=== PATIENT | male | born 1940 | race Caucasian/White ===

== ENCOUNTER 2019-10-28 21:06 | Inpatient (IN) | payer BC, OTHER ==
--- NOTE | 2019-10-28 21:16 | PDOC ---
History of Present Illness - General Stated Complaint: WEAKNESS Time Seen by Provider: 10/28/19 21:15 tPA Exclusion checklist 3-4.5h - Time Elapsed Date last known well: 10/27/19 Time last known well: 22:00 Elaspsed time: 1 Day(s) and 5 Hour(s) and 18 Minutes - Thrombolytic Therapy Candidate Is patient eligible for thrombolytic therapy: No - Ineligibility reason(s) Reasons No tPA given: Outside of window - delayed arrival NIH Stroke Scale - Last Known Well Date/Time & Onset Date Last Known Well: 10/27/19 Time Last Known Well: 22:00 - Initial Evaluation Level of consciousness: Alert Ask patient the month and their age: Answers both correctly Ask patient to open & close eyes; make fist and let go: Obeys both correctly Best gaze (horizontal eye movement): Normal Visual field testing: No visual field loss Facial paresis (Show teeth/raise eyebrows/close eyes tight): Normal symmetrical movement Motor Function: Left Arm: Normal Motor Function: Right Arm: Normal (extends arm 90 (or 45) degrees for 10 seconds without drift Motor Function: Left Leg: Some effort against gravity Motor Function: Right Leg: Some effort against gravity Limb Ataxia: Present in two limbs (Unable to lift either leg to perform) Sensory(Use pinprick test arms,legs,trunk,face/side to side): Normal Best language (Describe picture, name items, read sentences): Mild to moderate aphasia (Some word finding difficulty) Dysarthria (read several words): Normal articulation Extinction and Inattention: No abnormality - Total Score NIH Stroke Scale Score: 7 Past History - Past Medical History Allergies/Adverse Reactions: Allergies Allergy/AdvReac Type Severity Reaction Status Date / Time No Known Allergies Allergy Verified 10/28/19 22:27 Home Medications: Ambulatory Orders Aspirin Coated [Ecotrin -] 81 mg PO DAILY 07/28/12 Atorvastatin Ca [Lipitor] 40 mg PO HS 07/28/12 Carvedilol Phosphate [Coreg Cr -] 40 mg PO DAILY 07/28/12 Cholecalciferol (Vitamin D3) [Vitamin D] 1,000 unit PO DAILY 07/28/12 Docosahexanoic Acid/Epa [Fish Oil Softgel] 1 each PO DAILY 07/28/12 Hydrochlorothiazide [Hctz] 12.5 mg PO DAILY 07/28/12 Losartan Potassium 50 mg PO DAILY 07/28/12 Multivit-Min/FA/Lycopene/Lut [Centrum Silver Tablet] 1 each PO DAILY 07/28/12 Sitagliptin Phosphate [Januvia -] 100 mg PO DAILY@0700 07/28/12 metFORMIN XR [Glucophage Xr -] 500 mg PO BID 07/28/12 Albuterol 0.083% Nebulizer Jena [Ventolin 0.083% Nebulizer Soln -] 1 neb NEB QIDR #0 vial 07/30/12 Guaifenesin [Robitussin] 10 ml PO TID PRN #0 cup 07/30/12 Insulin (Novolog) [Novolog Flexpen -] 0 units SQ ACHS #0 pen 07/30/12 Ranolazine [Ranexa -] 500 mg PO BID #0 tab 07/30/12 Anemia: No Asthma: No Cancer: No Cardiac Disorders: Yes (1993, pad) CVA: No COPD: No Dementia: No Diabetes: Yes GI Disorders: No Disorders: No HTN: Yes Hypercholesterolemia: Yes Liver Disease: No Seizures: No Thyroid Disease: No - Surgical History Abdominal Surgery: No Appendectomy: No Cardiac Surgery: No Cholecystectomy: No Lung Surgery: No Neurologic Surgery: No Orthopedic Surgery: Yes (reattached L thumb) - Psycho Social/Smoking Cessation Hx Smoking Status: No Smoking History: Current every day smoker Have you smoked in the past 12 months: Yes Number of Cigarettes Smoked Daily: 22 'Breaking Loose' booklet given: 07/29/12 Hx Alcohol Use: No Drug/Substance Use Hx: No Substance Use Type: None Hx Substance Use Treatment: No ED Treatment Course - LABORATORY CBC & Chemistry Diagram: 10/28/19 22:14 10/28/19 22:14 Medical Decision Making - Medical Decision Making 10/28/19 22:11 HPI: 78yo M hx IDDM, HTN, CAD (1993, no stents), HLD, hx smoking (120 pack-year, quit 3mo ago), and b/l leg weakness (x1yr, unknown cause, walks with walker) BIBA from home for b/l leg weakness, word finding difficulty, and amnesia to day , with associated urinary incontinence, LKN 2200 10/27/19 when went to bed, noticed abnormal when called at 1800 today. Pt was in [facility], remembers going to bed at 2200 ( confirms bed time and confirms baseline at time), then does not remember today. went to work before pt woke up. Called pt at 1800 and pt said could not drive to pick her up because "felt stuffy", was hard to understand. went home and found pt sitting in chair having urinated on self, confused, and unable to identify objects like "armrest". did not call ambulance until later because pt refused. EMS arrived at 2030 and pt was still in chair unable to stand 2/2 leg weakness, but pt's speech had improved. Pt does have b/l LE weakness at baseline x1yr which is being evaluated and thinks was told might be due to peripheral vascular disease, but is still being worked up. Pt baseline is able to walk with walker, today's weakness is a significant change. No hx of dementia or word finding difficulty or amnesia. Took baby aspirin and daily dose Lipitor at unknown time today. Denies hx seizures, seizure-like activity, tongue-biting, fall, trauma, back pain, neck pain, urinary retention, bowel incontinence, saddle anesthesia, IVDU, fever, chills, fatigue, headache, dizziness, numbness/tingling, vision changes, shortness of breath, cough, chest pain, palpitations, leg swelling, abdominal pain, blood in stool, diarrhea, constipation, nausea, vomiting, dysuria, hematuria, rash. ROS: Constitutional: Negative for chills, fever, fatigue, diaphoresis. HENT: Negative for sore throat, rhinorrhea, congestion. Eyes: Negative for visual disturbance. Respiratory: Negative for shortness of breath, cough, and wheezing. Cardiovascular: Negative for chest pain, palpitations, and leg swelling. Gastrointestinal: Negative for abdominal pain, blood in stool, constipation, diarrhea, nausea, and vomiting. Genitourinary: Negative for dysuria, flank pain, and hematuria. Musculoskeletal: Negative for myalgias, back pain, and neck pain. Skin: Negative for rash. Neurological: Positive for word finding difficulty and b/l leg weakness. Negative for light-headedness, dizziness, vertigo, syncope, numbness and headaches. Psychiatric/Behavioral: Negative for behavioral problems and confusion. PE: Gen: Alert, NAD, comfortable-appearing. HEENT: PERRL, EOMI, MMM, NCAT. No conjunctival pallor. Sclera are non-icteric. Oropharynx is clear. CV: Regular rate and rhythm. No murmurs, rubs, or gallops. PULM: No resp distress. CTAB, no wheezes, rales, or rhonchi. ABD: soft, NT/ND, no rebound tenderness or guarding, no CVA tenderness. BACK: No TTP of midline c/t/l-spine. No rashes. No step-offs or deformities. MSK: No bony deformities. 2+ pulses in all extremities. NEURO: AAOx3. PERRL. Word finding difficulty. No dysarthria. CN 2-12 intact. Sensation to light touch intact in all extremities. 5/5 strength in UEs throughout. BLEs: 5/5 strength dorsiflexion/plantarflexion and knee flexion/extension. 2.5/ 5 strength hip flexion. Able to lift both legs approx 1cm off bed and falls down within 3 seconds. EXTREMITIES: No cyanosis. No clubbing. No edema. No calf tenderness. PSYCH: Normal mood and thought pattern. SKIN: Warm and dry. Normal capillary refill. No rashes. No jaundice. MDM: 78yo M hx IDDM, HTN, CAD (CA 1993, no stents), HLD, hx smoking (120 pack-year, quit 3mo ago), and b/l leg weakness (x1yr, unknown cause, walks with walker) BIBA from home for 1 day b/l leg weakness, word finding difficulty, and amnesia to day, with associated urinary incontinence, LKN 2200 10/27/19 when went to bed , noticed abnormal when called at 1800 today. Took baby aspirin and daily dose Lipitor at unknown time today. Hemodynamically stable, bradycardic to 50s ( states sometimes happens after takes meds), afebrile, 2.5/5 strength hip flexion , word finding difficulty. NIHSS 7 (b/l leg weakness, word finding difficulty), no TPA due to outside window, LKN 2200 10/27/19 Ddx: stroke, ICH, cord compression, spinal abscess, cauda equina, seizure, rosario' s paralysis, infection, metabolic derangement, anemia -CTH: no acute pathology -EKG: sinus rhythm with PACs, 82bpm, RBBB, L anterior fascicular block, no e/o acute ischemia, no significant changes 07/28/12 -CBC,CMP,Coags,Cardiac profile,CHL,HDL,LDL,TGs,T&S,UA -Neuro consult: Spoke with Dr Her - discussed case; recommended CT w/o contrast T4-S1, full aspirin, admit stroke unit. Requested call back if CT abnormal -CT w/o contrast thoracic and lumbar -per pt's , pt cannot get MRI -aspirin -no statin needed since took his daily Lipitor today -IVF -Dispo: likely adm stroke unit pending w/u 10/28/19 23:20 Rectal exam performed: rectal tone present, no saddle anesthesia Rectal temp 102.1 -lact,VBG,BCx2,flu,UC,CXR -IVF,Tylenol 10/28/19 23:37 Labs reviewed. CXR reviewed: no acute pathology 10/29/19 01:46 CT read: IMPRESSION: Chronic advanced intervertebral osteochondrosis is noted from the T6 -7 down through the T11-12 levels, and at the L2-3 through the L4-5 levels, as described above. Prominent disc osteophyte complexes at T6-7, T7-8 and T8-9, which are producing moderate central spinal canal stenoses, and posterior displacement of the thecal sac, but without clear evidence of spinal cord compression. Smaller disc osteophyte complexes are noted at T11-12 and L3-4 producing mild central spinal canal stenoses. 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 -Dr Her paged. 10/29/19 01:[address] Her - no further recs, will follow. 10/29/19 02:03 Labs reviewed. Pt reassessed: strength improved in BLEs, word finding difficulty still present , pt appears a little more confused BLEs: 5/5 strength dorsiflexion/plantarflexion and knee flexion/extension. 4+/5 strength hip flexion. Able to lift both legs fully off bed and maintain for 5 seconds. Microblog sent for admission for BLE weakness, word finding difficulty, urinary incontinence, amnesia x1 day; CVA/TIA vs seizure? 10/29/19 03:18 UA reviewed - no e/o infection. Pt signed out to admitting team. Discharge - Discharge Information Problems reviewed: Yes Clinical Impression/Diagnosis: Bilateral leg weakness, Word finding difficulty Condition: Stable - Admission Yes - Follow up/Referral Referrals: Alejandro Segal MD [Primary Care Provider] - - Patient Discharge Instructions - Post Discharge Activity
--- NOTE | 2019-10-28 21:22 | PDOC ---
Documentation entered by Cali Ludwig SCRIBE, acting as scribe for Nancy Grove MD. Nancy Grove MD: This documentation has been prepared by the Oziel syed Daniel, SCRIBE, under my direction and personally reviewed by me in its entirety. I confirm that the documentation accurately reflects all work, treatment, procedures, and medical decision making performed by me. Attending Attestation - Resident Resident Name: Maite Feng - ED Attending Attestation I have performed the following: I have examined & evaluated the patient, The case was reviewed & discussed with the resident, I agree w/resident's findings & plan, Exceptions are as noted - HPI HPI: 10/28/19 21:49 The patient is a 78 year old male with a past medical history of [place] (1993), diabetes, HTN, and HLD here today for evaluation of altered mental status. As per the patients , the patient is normally ANOx3 and meets her at the train station but today did not. She states that she found him at home unable to get out of his chair. She states that the patient has chronic lower extremity weakness but is able to ambulate with a cane. Patient does not remember the incident. Allergies: NKA - Physicial Exam PE: 10/28/19 22:02 78-year-old male brought in by ambulance from home for acute weakness HPI the says normally his he walks with a cane and often will greet her at the train station however today when she got home at 6 he was seated and could not get up. He said he could not remember part of the day and felt that he had been weak and unable to get up from the chair for hours. 10/28/19 22:12 78-year-old male brought in by ambulance for bilateral weakness that occurred this afternoon Head normocephalic atraumatic Eyes pupils are reactive equal reactive to light and accommodation extraocular muscles are intact Neck is supple Lungs are clear to auscultation CVS is regular rate and rhythm S1-S2 Abdomen is nontender Skin is dry Extremities patient can raise the right leg off the gurney but cannot withstand any pressure on the leg and he has great difficulty in raising the left leg off the gurney at all, Neuro he has complaint of some word searching but has no facial droop or slurred speech at this time he is alert and oriented x3, no visual complaints 10/29/19 02:05 - Medical Decision Making 10/28/19 22:14 The patient symptoms occurred sometime between noon and 6 PM and is outside the window of TPA and also his symptoms are so minor at this time Case discussed with Dr. Ester Her the patient will be given aspirin plan ADMIT to the stroke unit Impression CVA/TIA 10/28/19 22:15 CAT scan of the head was negative for any acute intracranial pathology, no skull fracture no bleed and no infarct appreciated EKG is normal sinus rhythm at 82 bpm with premature atrial complexes, bifascicular block 10/29/19 02:05 cbc is wnl cxr no infiltrates appreciated rectal temp was 102, blood cultures,urine to be sent pt has normal rectal tone On exam of his spine he has no focal vertebral tenderness or erythema ct scan of lumbar spine is negative for abscess
[2019-10-28] MEDS ORDERED: ASPIRIN 325 MG TABLET PO ONE (22:15)
[2019-10-28] MEDS ORDERED: ASPIRIN 325 MG ENTERIC COATED TABLET (FP) ONE (22:29)
[2019-10-28 22:30] LABS: BASO % 0.4 % (0-2.0); EOS % 2.2 % (0-4.5); HEMATOCRIT 38.7 % (35.4-49); HEMOGLOBIN 12.9 GM/dL (11.7-16.9); LYMPH % 8.5 % (8-40); MCHC 33.5 g/dl (32.0-35.9); MEAN CELL VOLUME 95.6 fl (80-96); MEAN PLT VOLUME 8.6 fl (7.5-11.1); NEUT % 72.9 % (42.8-82.8); PLATELET COUNT 177 K/MM3 (134-434); RBC 4.04 M/mm3 (4.00-5.60); RDW 14.1 % (11.9-15.9); WHITE BLOOD COUNT 4.8 K/mm3 (4.0-10.0)
[2019-10-28] MEDS: SODIUM CHLORIDE 1,000 ML IV SCH (22:37)
[2019-10-28 23:00] LABS: BILIRUBIN,TOTAL 0.4 mg/dL (0.2-1); BLOOD UREA NITROGEN 21.8 mg/dL (7-18); CALCIUM 9.8 mg/dL (8.5-10.1); CREATININE 1.4 mg/dL (0.55-1.3); TOT PROT 7.3 g/dl (6.4-8.2)
[2019-10-28 23:11] LABS: INR 1.02 (0.83-1.09)
[2019-10-28 23:13] LABS: ACTIVATED PTT 32.7 SECONDS (25.2-36.5)
[2019-10-28] MEDS ORDERED: ACETAMINOPHEN 500 MG TABLET (FP) PO ONE (23:14)
[2019-10-28] MEDS ORDERED: VANCOMYCIN 1 GM in D5W (PRE-DOCKED) 1,000 MG/250 ML IVPB ONE (23:16)
[2019-10-28] MEDS ORDERED: CEFTRIAXONE 2 GM-D5W BAG 2 GM/50 ML BAG IVPB ONE (23:16)
[2019-10-29 00:18] LABS: VENOUS PH 7.43 (7.31-7.41)
[2019-10-29 00:25] LABS: VENOUS PO2 < 49 mmHg (28-48)
[2019-10-29] MEDS ORDERED: ACETAMINOPHEN 325 MG TABLET (FP) ONE (00:36)
[2019-10-29] MEDS ORDERED: VANCOMYCIN 500 MG VIAL (RESTRICTED TO ID ONLY) ONE (00:37)
[2019-10-29] MEDS ORDERED: CEFTRIAXONE 2 GM/100 ML BAG IVPB ONE ×2 (00:37→09:54)
--- NOTE | 2019-10-29 03:03 | PN ---
Teaching Attending Note Name of Resident: Victorina Balderas ATTENDING PHYSICIAN STATEMENT I saw and evaluated the patient. I reviewed the resident's note and discussed the case with the resident. I agree with the resident's findings and plan as documented. SUBJECTIVE: Patient is a 78 year old man with a PMH of [place] (1993), Bilateral caroid endarterectomy, Tobacco use, NIDDM, HTN, and HLD here today for evaluation of altered mental status. As per the patients , the patient is normally alert and oriented x3, and meets her at the train station but today did not. She states that she found him at home unable to get out of his chair. She states that the patient has chronic lower extremity weakness but is able to ambulate with a cane. Patient does not remember the incident. No history of seizures. Denies fall, trauma, back pain, neck pain, urinary retention, bowel incontinence , saddle anesthesia, IVDU, fever, chills, fatigue, headache, dizziness, numbness /tingling, vision changes, shortness of breath, cough, chest pain, palpitations , leg swelling, abdominal pain, blood in stool, diarrhea, constipation, nausea, vomiting, dysuria or hematuria. No recent sick contacts. Denies alcohol or illicit drug use. OBJECTIVE: Alert Vital Signs Period Temp Pulse Resp BP Sys/Bailey Pulse Ox Last 24 Hr 97.8 F-102.1 F 44 18 116/67 96 HEENT: No Jaundice, eye redness or discharge, PERRLA, EOMI. Normocephalic, atraumatic. External ears are normal and hearing is grossly intact. No nasal discharge. Neck: Supple, nontender. No palpable adenopathy or thyromegaly. No JVD Chest: Good effort. Clear to auscultation and percussion. Heart: Regular. No S3, rub or murmur Abdomen: Not distended, soft, nontender and no HSM. No rebound or guarding. Normal bowel sounds. Ext: Peripheral pulses intact. No leg edema. Skin: Warm and dry. No petechiae, rash or ecchymosis. Neuro: Alert. Oriented x3. CN 2-12 grossly intact. Sensation grossly intact in all four extremities; lower extremity paresis. Psych: Appropriate mood and affect. Good insight. Current Medications Generic Name Dose Route Start Last Admin Trade Name Freq PRN Reason Stop Dose Admin Sodium Chloride 1,000 mls @ 42 mls/hr 10/28/19 21:45 10/28/19 22:37 Normal Saline - IV 42 mls/hr ASDIR SÁNCHEZ Administration Home Medications Medication Instructions Recorded Aspirin Coated [Ecotrin -] 81 mg PO DAILY 07/28/12 Atorvastatin Ca [Lipitor] 40 mg PO HS 07/28/12 Carvedilol Phosphate [Coreg Cr -] 40 mg PO DAILY 07/28/12 Cholecalciferol (Vitamin D3) 1,000 unit PO DAILY 07/28/12 [Vitamin D] Docosahexanoic Acid/Epa [Fish Oil 1 each PO DAILY 07/28/12 Softgel] Hydrochlorothiazide [Hctz] 12.5 mg PO DAILY 07/28/12 Losartan Potassium 50 mg PO DAILY 07/28/12 Multivit-Min/FA/Lycopene/Lut 1 each PO DAILY 07/28/12 [Centrum Silver Tablet] Sitagliptin Phosphate [Januvia -] 100 mg PO DAILY@0700 07/28/12 metFORMIN XR [Glucophage Xr -] 500 mg PO BID 07/28/12 Albuterol 0.083% Nebulizer Jena 1 neb NEB QIDR #0 vial 07/30/12 [Ventolin 0.083% Nebulizer Soln -] Guaifenesin [Robitussin] 10 ml PO TID PRN #0 cup 07/30/12 Insulin (Novolog) [Novolog Flexpen 0 units SQ ACHS #0 pen 07/30/12 -] Ranolazine [Ranexa -] 500 mg PO BID #0 tab 07/30/12 Abnormal Lab Results 10/28/19 10/28/19 10/28/19 22:14 22:14 23:44 Monocytes % 16.0 H D VBG pH 7.43 H POC VBG pO2 < 49 H Anion Gap 5 L BUN 21.8 H Creatinine 1.4 H Random Glucose 151 H Triglycerides 175 H ASSESSMENT AND PLAN: 1. TIA? - No acute intracranial pathology on head CT, but has evidence of sinusitis. Official report of thoracic and lumbar spine CT pending - but preliminary reading revealed possible aortic aneurysm. Will get a sonogram for further evaluation of the anerysm. NIHSS score in the ER was 7, but patient is outside the window for tPA. Will do speech and swallow evaluation, ECHO and continue statin and ASA. His symptoms improved in the ER but with a fever of >102 and no other obvious source of infection, will get a lumbar puncture and treat empirically for meningitis with vancomycin, rocephin, ampicillin and acyclovir. Get EEG, brain MRI and lumbosacral MRI. Consult ID, PT and neurology. CXR shows cardiomegaly, hilar prominence but no acute infiltrates. Flu swab is negative. Urinalysis and urine toxicology pending. EKG shows NSR with premature atrial complexes, RBBB and LAFB. Will continue comprehensive care for all of patients comorbid conditions. 2. Uncontrolled DM For now, we will hold the home diabetes drugs and implement sliding scale insulin regimen. Provide comprehensive diabetes care with patient teaching and counseling about the importance of adherence to prescribed diabetes regimen, euglycemia, eye care and foot care. 3. Tobacco Use Counseled on risks associated with tobacco use. We will provide patient all the necessary assistance to facilitate smoking cessation and prescribe Nicotine patch. 4. NILAY - Cause unclear. Will get kidney sonogram, hydrate gently and monitor urine output. Consult nephrology and avoid nephrotoxic agents such as NSAIDS, aminoglycosides, contrast dyes and certain Alternative medicine products. 5. Hypertension - Restart suitable outpatient antihypertensive drugs when clinically appropriate. Revise regimen to ensure [id number] excellent BP control and aids counselor patient on the injurious effects of uncontrolled hypertension. Nonpharmacologic measures to control hypertension like weight loss , salt restriction and exercise discussed. Importance of adherence to treatment regimen and attainment of normotension emphasized. 6. DVT prophylaxis - Lovenox 40 mg SQ q 24 hours. 7. Advance directives - Full code
[2019-10-29 03:13] LABS: PH,URINE 5.5 (5.0-8.0); URINE APPEARANCE CLEAR; URINE BILIRUBIN NEGATIVE (NEGATIVE); URINE COLOR YELLOW; URINE GLUCOSE (UA) NEGATIVE (NEGATIVE); URINE KETONE TRACE (NEGATIVE); URINE LEUK ESTERASE NEGATIVE (NEGATIVE); URINE NITRITE NEGATIVE (NEGATIVE); URINE PROTEIN 2+ (NEGATIVE); URINE RBC 7 /hpf (0-4); URINE UROBILINOGEN 0.2 mg/dL (0.2-1.0)
[2019-10-29 03:14] LABS: EPI CELLS 0.5 /HPF (0-5/HPF); HYALINE CASTS 2 /lpf (0-8); URINE BACTERIA 0.8 /hpf (NEGATIVE); URINE WBC 1 /hpf (0-5)
--- NOTE | 2019-10-29 03:56 | HP ---
CHIEF COMPLAINT: B/L leg weakness and amnesia PCP: Dr Segal (Felipe) HISTORY OF PRESENT ILLNESS: Though patient is AAOx3 he is amnesic of today incident. According to ED record from : 78yo M hx IDDM, HTN, CAD (SD 1993, no stents), HLD, hx smoking (120 pack-year, quit 3mo ago), and b/l leg weakness (x1yr, unknown cause, walks with walker) BIBA from home for b/l leg weakness, word finding difficulty, and amnesia to day , with associated urinary incontinence, LKN 2200 10/27/19 when went to bed, noticed abnormal when called at 1800 today. Pt was in [facility] [place], remembers going to bed at 2200 ( confirms bed time and confirms baseline at time), then does not remember today. went to work before pt woke up. Called pt at 1800 and pt said could not drive to pick her up because "felt stuffy", was hard to understand. went home and found pt sitting in chair having urinated on self, confused, and unable to identify objects like "armrest". did not call ambulance until later because pt refused. EMS arrived at 2030 and pt was still in chair unable to stand 2/2 leg weakness, but pt's speech had improved. Pt does have b/l LE weakness at baseline x1yr which is being evaluated and thinks was told might be due to peripheral vascular disease, but is still being worked up. Pt baseline is able to walk with walker, today's weakness is a significant change. No hx of dementia or word finding difficulty or amnesia. Took baby aspirin and daily dose Lipitor at unknown time today. During our admission interview: Patient states he has had chronic bilateral lower extremity weakness for the past year; he states he usually feels discomfort and weak after walking block and the discomfort is relieved with rest. He also reports associated numbness and weakness intermittently in the bilateral lower extremities. 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 Denies hx seizures, seizure-like activity, tongue-biting, fall, trauma, back pain, neck pain, urinary retention, bowel incontinence, saddle anesthesia, IVDU , fever, chills, fatigue, headache, dizziness, numbness/tingling, vision changes , shortness of breath, cough, chest pain, palpitations, leg swelling, abdominal pain, blood in stool, diarrhea, constipation, nausea, vomiting, dysuria, hematuria, rash. ER course was notable for: (1) VS with fever 102.1 CBC unremarkable, CMP with Cr 1.4, lipids elevated 175. UA negative, flu negative (2) head CT no acute pathology, thoracic and lumbar Chronic advanced intervertebral osteochondrosis is noted from the T6-7 down through the T11-12 levels, and at the L2-3 through the L4-5 levels, as described above. Prominent disc osteophyte complexes at T6-7, T7-8 and T8-9, which are producing moderate central spinal canal stenoses, and posterior displacement of the thecal sac, but without clear evidence of spinal cord compression. Smaller disc osteophyte complexes are noted at T11-12 and L3-4 producing mild central spinal canal stenoses. 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 (3) ASA 325, NS, vanco and rocephin, tylenol Recent Travel: none PAST MEDICAL HISTORY: as above PAST SURGICAL HISTORY: B/l CEA in 2018 Social History: Smoking: heavy former smoker Alcohol: one drink a night "rye or cassie" Drugs: denies Allergies No Known Allergies Allergy (Verified 10/28/19 22:27) HOME MEDICATIONS: Home Medications Medication Instructions Recorded Aspirin Coated [Ecotrin -] 81 mg PO DAILY 07/28/12 Atorvastatin Ca [Lipitor] 40 mg PO HS 07/28/12 Carvedilol Phosphate [Coreg Cr -] 40 mg PO DAILY 07/28/12 Cholecalciferol (Vitamin D3) 1,000 unit PO DAILY 07/28/12 [Vitamin D] Docosahexanoic Acid/Epa [Fish Oil 1 each PO DAILY 07/28/12 Softgel] Hydrochlorothiazide [Hctz] 12.5 mg PO DAILY 07/28/12 Losartan Potassium 50 mg PO DAILY 07/28/12 Multivit-Min/FA/Lycopene/Lut 1 each PO DAILY 07/28/12 [Centrum Silver Tablet] Sitagliptin Phosphate [Januvia -] 100 mg PO DAILY@0700 07/28/12 metFORMIN XR [Glucophage Xr -] 500 mg PO BID 07/28/12 Albuterol 0.083% Nebulizer Jena 1 neb NEB QIDR #0 vial 07/30/12 [Ventolin 0.083% Nebulizer Soln -] Guaifenesin [Robitussin] 10 ml PO TID PRN #0 cup 07/30/12 Insulin (Novolog) [Novolog Flexpen 0 units SQ ACHS #0 pen 07/30/12 -] Ranolazine [Ranexa -] 500 mg PO BID #0 tab 07/30/12 REVIEW OF SYSTEMS CONSTITUTIONAL: Absent: fever, chills, diaphoresis, generalized weakness, malaise, loss of appetite, weight change HEENT: Absent: rhinorrhea, nasal congestion, throat pain, throat swelling, difficulty swallowing, mouth swelling, ear pain, eye pain, visual changes CARDIOVASCULAR: Absent: chest pain, syncope, palpitations, irregular heart rate, lightheadedness , peripheral edema RESPIRATORY: Absent: cough, shortness of breath, dyspnea with exertion, orthopnea, wheezing, stridor, hemoptysis GASTROINTESTINAL: Absent: abdominal pain, abdominal distension, nausea, vomiting, diarrhea, constipation, melena, hematochezia GENITOURINARY: Absent: dysuria, frequency, urgency, hesitancy, hematuria, flank pain, genital pain MUSCULOSKELETAL: Absent: myalgia, arthralgia, joint swelling, back pain, neck pain SKIN: Absent: rash, itching, pallor HEMATOLOGIC/IMMUNOLOGIC: Absent: easy bleeding, easy bruising, lymphadenopathy, frequent infections ENDOCRINE: Absent: unexplained weight gain, unexplained weight loss, heat intolerance, cold intolerance NEUROLOGIC: focal weakness,mental status changes, bladder incontinence Absent: headache, or paresthesias, dizziness, unsteady gait, seizure, bowel incontinence PSYCHIATRIC: Absent: anxiety, depression, suicidal or homicidal ideation, hallucinations. PHYSICAL EXAMINATION Vital Signs - 24 hr 10/28/19 10/28/19 22:20 23:12 Temperature 97.8 F 102.1 F H Pulse Rate 44 L Respiratory 18 Rate Blood Pressure 116/67 O2 Sat by Pulse 96 Oximetry (%) Hours after ED presentation GENERAL: Awake, alert, and fully oriented, in no acute distress. HEAD: Normal with no signs of trauma. EYES: Pupils unequal ( R>L), round and reactive to light, extraocular movements intact, sclera anicteric, conjunctiva clear. No lid lag. EARS, NOSE, THROAT: oropharynx clear without exudates. Moist mucous membranes. NECK: Normal range of motion, supple without lymphadenopathy, JVD, or masses. scars from b/l CEA LUNGS: Breath sounds equal, clear to auscultation bilaterally. No wheezes, and no crackles. No accessory muscle use. HEART: Regular rate and rhythm, normal S1 and S2 without murmur, rub or gallop. ABDOMEN: Soft, nontender, not distended, normoactive bowel sounds, no guarding, no rebound, no masses. No hepatomegaly or splenomegaly. MUSCULOSKELETAL: Normal range of motion at all joints. No bony deformities or tenderness. No CVA tenderness. UPPER EXTREMITIES: 2+ pulses, warm, well-perfused. No cyanosis. No clubbing. No peripheral edema. LOWER EXTREMITIES: 2+ pulses, warm, well-perfused. No calf tenderness. No peripheral edema. NEUROLOGICAL: Cranial nerves II-XII intact. Normal speech. Sensation to light touch intact in all extremities. 5/5 strength in UEs throughout. BLEs: 5/5 strength dorsiflexion/plantarflexion and knee flexion/extension. 5/5 strength hip flexion. Able to lift both legs approx 1cm off bed for 5 seconds. PSYCHIATRIC: Cooperative. Good eye contact. Appropriate mood and affect. SKIN: Warm, dry, normal turgor, no rashes or lesions noted, normal capillary refill. Laboratory Results - last 24 hr 10/28/19 10/28/19 10/28/19 02:35 22:14 22:14 WBC RBC Hgb Hct MCV MCH MCHC RDW Plt Count MPV Absolute Neuts (auto) Neutrophils % Lymphocytes % Monocytes % Eosinophils % Basophils % Nucleated RBC % PT with INR 12.00 INR 1.02 PTT (Actin FS) 32.7 VBG pH POC VBG pCO2 POC VBG pO2 VBG HCO3 VBG O2 Sat ([place]) VBG Base Excess Sodium Potassium Chloride Carbon Dioxide Anion Gap BUN Creatinine Est GFR (CKD-EPI)AfAm Est GFR (CKD-EPI)NonAf Random Glucose Lactic Acid Calcium Total Bilirubin AST ALT Alkaline Phosphatase Creatine Kinase 186 Creatine Kinase Index 1.1 CK-MB (CK-2) 2.1 Troponin I < 0.02 Total Protein Albumin Triglycerides Cholesterol Total LDL Cholesterol HDL Cholesterol Urine Color Yellow Urine Appearance Clear Urine pH 5.5 Ur Specific [place] 1.023 Urine Protein 2+ H Urine Glucose (UA) Negative Urine Ketones Trace H Urine Blood Negative Urine Nitrite Negative Urine Bilirubin Negative Urine Urobilinogen 0.2 Ur Leukocyte Esterase Negative Urine WBC (Auto) 1 Urine RBC (Auto) 7 Urine Casts (Auto) 2 U Epithel Cells (Auto) 0.5 Urine Bacteria (Auto) 0.8 Influenza A (Rapid) Influenza B (Rapid) Blood Type Antibody Screen 10/28/19 10/28/19 10/28/19 22:14 22:14 22:14 WBC 4.8 RBC 4.04 Hgb 12.9 Hct 38.7 MCV 95.6 MCH 32.0 MCHC 33.5 RDW 14.1 Plt Count 177 MPV 8.6 Absolute Neuts (auto) 3.5 Neutrophils % 72.9 Lymphocytes % 8.5 Monocytes % 16.0 H D Eosinophils % 2.2 Basophils % 0.4 Nucleated RBC % 0 PT with INR INR PTT (Actin FS) VBG pH POC VBG pCO2 POC VBG pO2 VBG HCO3 VBG O2 Sat ([place]) VBG Base Excess Sodium 136 Potassium 4.0 Chloride 101 Carbon Dioxide 31 Anion Gap 5 L BUN 21.8 H Creatinine 1.4 H Est GFR (CKD-EPI)AfAm 55.77 Est GFR (CKD-EPI)NonAf 48.12 Random Glucose 151 H Lactic Acid Calcium 9.8 Total Bilirubin 0.4 AST 21 ALT 23 Alkaline Phosphatase 86 Creatine Kinase Creatine Kinase Index CK-MB (CK-2) Troponin I Total Protein 7.3 Albumin 4.0 Triglycerides 175 H Cholesterol 167 Total LDL Cholesterol 82 HDL Cholesterol 60 Urine Color Urine Appearance Urine pH Ur Specific [place] Urine Protein Urine Glucose (UA) Urine Ketones Urine Blood Urine Nitrite Urine Bilirubin Urine Urobilinogen Ur Leukocyte Esterase Urine WBC (Auto) Urine RBC (Auto) Urine Casts (Auto) U Epithel Cells (Auto) Urine Bacteria (Auto) Influenza A (Rapid) Influenza B (Rapid) Blood Type O POSITIVE Antibody Screen Negative 10/28/19 10/28/19 10/29/19 23:44 23:44 00:01 WBC RBC Hgb Hct MCV MCH MCHC RDW Plt Count MPV Absolute Neuts (auto) Neutrophils % Lymphocytes % Monocytes % Eosinophils % Basophils % Nucleated RBC % PT with INR INR PTT (Actin FS) VBG pH 7.43 H POC VBG pCO2 39.0 POC VBG pO2 < 49 H VBG HCO3 25.5 VBG O2 Sat ([place]) 78.7 VBG Base Excess 1.7 Sodium Potassium Chloride Carbon Dioxide Anion Gap BUN Creatinine Est GFR (CKD-EPI)AfAm Est GFR (CKD-EPI)NonAf Random Glucose Lactic Acid 1.6 Calcium Total Bilirubin AST ALT Alkaline Phosphatase Creatine Kinase Creatine Kinase Index CK-MB (CK-2) Troponin I < 0.02 Total Protein Albumin Triglycerides Cholesterol Total LDL Cholesterol HDL Cholesterol Urine Color Urine Appearance Urine pH Ur Specific [place] Urine Protein Urine Glucose (UA) Urine Ketones Urine Blood Urine Nitrite Urine Bilirubin Urine Urobilinogen Ur Leukocyte Esterase Urine WBC (Auto) Urine RBC (Auto) Urine Casts (Auto) U Epithel Cells (Auto) Urine Bacteria (Auto) Influenza A (Rapid) Influenza B (Rapid) Blood Type Antibody Screen 10/29/19 00:35 WBC RBC Hgb Hct MCV MCH MCHC RDW Plt Count MPV Absolute Neuts (auto) Neutrophils % Lymphocytes % Monocytes % Eosinophils % Basophils % Nucleated RBC % PT with INR INR PTT (Actin FS) VBG pH POC VBG pCO2 POC VBG pO2 VBG HCO3 VBG O2 Sat ([place]ira) VBG Base Excess Sodium Potassium Chloride Carbon Dioxide Anion Gap BUN Creatinine Est GFR (CKD-EPI)AfAm Est GFR (CKD-EPI)NonAf Random Glucose Lactic Acid Calcium Total Bilirubin AST ALT Alkaline Phosphatase Creatine Kinase Creatine Kinase Index CK-MB (CK-2) Troponin I Total Protein Albumin Triglycerides Cholesterol Total LDL Cholesterol HDL Cholesterol Urine Color Urine Appearance Urine pH Ur Specific [place] Urine Protein Urine Glucose (UA) Urine Ketones Urine Blood Urine Nitrite Urine Bilirubin Urine Urobilinogen Ur Leukocyte Esterase Urine WBC (Auto) Urine RBC (Auto) Urine Casts (Auto) U Epithel Cells (Auto) Urine Bacteria (Auto) Influenza A (Rapid) Negative Influenza B (Rapid) Negative Blood Type Antibody Screen Head CT no acute pathology, thoracic and lumbar Chronic advanced intervertebral osteochondrosis is noted from the T6-7 down through the T11-12 levels, and at the L2-3 through the L4-5 levels, as described above. Prominent disc osteophyte complexes at T6-7, T7-8 and T8-9, which are producing moderate central spinal canal stenoses, and posterior displacement of the thecal sac, but without clear evidence of spinal cord compression. Smaller disc osteophyte complexes are noted at T11-12 and L3-4 producing mild central spinal canal stenoses. 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 ASSESSMENT/PLAN: 78yo M hx IDDM, HTN, CAD (SD 1993, no stents), HLD, hx smoking (120 pack-year, quit 3mo ago), and b/l leg weakness (x1yr, unknown cause, walks with walker) BIBA from home for b/l leg weakness, word finding difficulty, and amnesia to day , with associated urinary incontinence; admitted for CVA/TIA work up vs meningitis. worsening b/l leg weakness associated with amnesia, urine incontinence and word difficulty poss due to TIA/CVA Pt on admission had abnormal neuro with severe weaknes in LE at 2/5 in hip flexion; by my interview complete neuro recovery no saddle anesthesia or bowel incontinence. Urine incontinence resolved. pt developed retention requiring campbell placement B/L CEA last year CT of head, thoracic and lumbar spine finding described above carotid U/S to r/o reocclusion echo ordered Neuro Dr Her on board and will assess patient today NPO speech and swallow eval neurochecks Q2h MRI of lumbar region to r/o sac/cord compression continue statins New onset fever and waxing and waning mental status and Neuro deficit no clear source of infection identified outside of brain Fever of 102.1F Head CT no ICP; IR consult for LP to r/o meningitis Urine and blood cultures sent for speciation and sensitivity. cont vanc and ceftriaxone for empiric coverage ID Dr Garcia consulted NILAY Cause unclear. renal sonogram gentle hydration at 42 cc/hr monitor urine output Nephro Dr Paulson consulted avoid nephrotoxic agents AAA on CT 4.5 cm abdominal US for further evaluation monitor VS DM BGM ISS HTN currently normotensive will hold home BP for now HLD continue statin FEN NS@ 42cc/hr NPO monitor lytes DVT lovenox daily Admit to tele Visit type - Emergency Visit Emergency Visit: Yes ED Registration Date: 10/28/19 Care time: The patient presented to the Emergency Department on the above date and was hospitalized for further evaluation of their emergent condition. - New Patient This patient is new to me today: Yes Date on this admission: 10/29/19 - Critical Care Critical Care patient: No ATTENDING PHYSICIAN STATEMENT I saw and evaluated the patient. I reviewed the resident's note and discussed the case with the resident. I agree with the resident's findings and plan as documented. SUBJECTIVE: OBJECTIVE: ASSESSMENT AND PLAN:
[2019-10-29] MEDS: INSULIN SLIDING SCALE (NOVOLOG) 1 VIAL SQ SCH ×4 (07:18→21:50)
[2019-10-29 08:12] LABS: BASO % 0.4 % (0-2.0); EOS % 0.7 % (0-4.5); HEMATOCRIT 36.1 % (35.4-49); MCH 31.9 pg (25.7-33.7); MCHC 33.4 g/dl (32.0-35.9); MEAN CELL VOLUME 95.3 fl (80-96); MEAN PLT VOLUME 8.1 fl (7.5-11.1); MONO % 18.9 % (3.8-10.2); PLATELET COUNT 163 K/MM3 (134-434); RBC 3.78 M/mm3 (4.00-5.60); RDW 13.9 % (11.9-15.9); WHITE BLOOD COUNT 4.2 K/mm3 (4.0-10.0)
[2019-10-29 08:48] LABS: ALBUMIN 3.5 g/dl (3.4-5.0); BILIRUBIN,TOTAL 0.3 mg/dL (0.2-1); BLOOD UREA NITROGEN 20.3 mg/dL (7-18); CALCIUM 8.6 mg/dL (8.5-10.1); CREATININE 1.3 mg/dL (0.55-1.3); MAGNESIUM 1.9 mg/dL (1.8-2.4); POTASSIUM 3.7 mmol/L (3.5-5.1); TOT PROT 6.5 g/dl (6.4-8.2)
--- NOTE | 2019-10-29 09:18 | CON.NEURO ---
Consult Consult Specialty:: [place] Referred by:: ER Reason for Consultation:: Weakness and speech problem - History of Present Illness History of Present Illness: this is a very pleasant 78-year-old right-handed man who came into the emergency room last night with the chief complaint of difficulty with his legs and altered speech. Patient with a very complicated coronary artery disease history with history of RI in the past history of bilateral leg weakness that has been going on for 1 year patient walks with a walker patient is currently according to him does not see the lining scrubber. According to the patient he has been using a walker for one year patient was noted with increasing bilateral leg weakness and difficulty expressing himself in the emergency room stroke protocol was initiated I spoke to the emergency room resident last night localization was very difficult to a certain based on the fact that the patient had bilateral leg weakness initially the NIH stroke scale was given to me as 7 which I had questions about. Again patient was stabilized CAT scan of the head revealed no evidence of acute [employer] pathology I requested a CAT scan of the thoracic and the lumbosacral spine to determine the cause of the bilateral leg weakness. CAT scan of the head and CAT scan of the lumbosacral spine revealed no evidence of cord compression. Patient was to be admitted to stroke unit. Overnight patient with no worsening of his symptoms still with the on and off difficulty with the speech. Patient received full aspirin. - History Source History Provided By: Patient, Family Member, Medical Record Limitations to Obtaining History: Clinical Condition - Alcohol/Substance Use Hx Alcohol Use: No - Smoking History Smoking history: Current every day smoker Have you smoked in the past 12 months: Yes Aproximately how many cigarettes per day: 22 If you are a former smoker, when did you quit?: may/2019 Home Medications - Allergies Allergies/Adverse Reactions: Allergies Allergy/AdvReac Type Severity Reaction Status Date / Time No Known Allergies Allergy Verified 10/28/19 22:27 - Home Medications Home Medications: Ambulatory Orders Aspirin Coated [Ecotrin -] 81 mg PO DAILY 07/28/12 Atorvastatin Ca [Lipitor] 40 mg PO HS 07/28/12 Hydrochlorothiazide [Hctz] 12.5 mg PO DAILY 07/28/12 Losartan Potassium 50 mg PO BID 07/28/12 metFORMIN XR [Glucophage Xr -] 500 mg PO BID 07/28/12 Carvedilol [Coreg -] 3.125 mg PO BID 10/29/19 Insulin (Levemir) [Levemir Vial] 14 unit SQ HS 10/29/19 Nateglinide [Starlix (Nf)] 120 mg PO TID 10/29/19 Family Medical History Family History: Unremarkable Review of Systems - Review of Systems Constitutional: reports: No Symptoms Eyes: reports: No Symptoms Neurological: reports: Headache, Incoordination, Numbness, Parasthesia, Weakness Physical Exam-Neuro Vital Signs: Vital Signs Temperature 98.3 F 10/29/19 07:38 Pulse Rate 74 10/29/19 07:38 Respiratory Rate 18 10/29/19 07:38 Blood Pressure 128/60 10/29/19 07:38 O2 Sat by Pulse Oximetry (%) 94 L 10/29/19 07:38 Constitutional: Yes: Well Nourished Neck: Yes: WNL Cardiovascular: Yes: WNL Respiratory: Yes: WNL Gastrointestinal: Yes: WNL Labs: CBC, BMP 10/29/19 07:50 10/29/19 07:50 INR, PTT INR 1.02 (0.83-1.09) 10/28/19 22:14 - Neuro Exam Level Of Consciousness: Yes: Oriented to Person, Oriented to Place, Oriented to Time Eyes: Yes: PERRLA Speech: Garbled Dominant Hand: Right Cranial Nerves II-XII Intact: Yes DTR's: 0 Left Bicep, 0 Right Bicep, 0 Left Tricep, 0 Right Tricep, 0 Left Brachioradialis, 0 Right Brachioradialis Response to pain prick: Abnormal Response to temperature: Abnormal Response to vibration: Abnormal Imaging - Results Cat Scan: Image Reviewed Problem List - Problems (1) Bilateral leg weakness Assessment/Plan: the constellation of the symptoms between the bilateral leg weakness and the altered speech does not fit for an ischemic event. Bilateral leg weakness have been progressive over the past 1 year. Speech has improved in the emergency room Patient was not a candidate for TPA. NIH stroke scale is 0 1. Neuro checks every 1 hour. 2. Fall precautions. 3. Blood work for myopathy. 4. Order EMG nerve conduction testing of the lower extremities. 5. Carotid Doppler. 6. Speech and swallow evaluation. 8. SCDs. 9. Full aspirin hold off the spinal tap given the fact that the patient does not look encephalopathic and I confirmed this with the Thank you very much for allowing me to be part of this patient's neurological care will follow the patient during the admission. Ester Her M.D. Code(s): R29.898 - [facility] SYMPTOMS AND SIGNS INVOLVING THE MUSCULOSKELETAL SYSTEM
[2019-10-29] MEDS ORDERED: ASPIRIN 325 MG ENTERIC COATED TABLET (FP) ONE (09:54)
[2019-10-29] MEDS ORDERED: ENOXAPARIN NA (PORCINE) 40 MG/0.4 ML DISP.SYRIN SQ ONE (09:54)
[2019-10-29] MEDS: SODIUM CHLORIDE 1,000 ML IV SCH (09:59)
[2019-10-29] MEDS ORDERED: ENOXAPARIN NA (PORCINE) 40 MG/0.4 ML DISP.SYRIN SQ SCH (10:00)
[2019-10-29] MEDS ORDERED: ASPIRIN 325 MG ENTERIC COATED TABLET (FP) PO SCH (10:00)
--- NOTE | 2019-10-29 10:15 | EKG ---
Test Reason : Blood Pressure : / mmHG Vent. Rate : 082 BPM Atrial Rate : 082 BPM P-R Int : 162 ms QRS Dur : 144 ms QT Int : 418 ms P-R-T Axes : 063 -68 058 degrees QTc Int : 488 ms POOR DATA QUALITY, INTERPRETATION MAY BE ADVERSELY AFFECTED SINUS RHYTHM WITH PREMATURE ATRIAL COMPLEXES RIGHT BUNDLE BRANCH BLOCK LEFT ANTERIOR FASCICULAR BLOCK BIFASCICULAR BLOCK ABNORMAL ECG WHEN COMPARED WITH ECG OF 29-JUL-2012 10:45, PREMATURE ATRIAL COMPLEXES ARE NOW PRESENT Confirmed by Shakeel Barajas MD ([id number]) on 10/29/2019 10:14:48 AM Referred By: Confirmed By:Shakeel Barajas MD
--- NOTE | 2019-10-29 10:46 | ECHO ---
Name: VICTORINO ALDRIDGE Exam:Adult Echocardiogram Study Date: 10/29/2019 08:36 AM Age: 78 yrs Reason For Study: CVA Height: 72 in Weight: 180 lb BSA: 2.0 m2 MMode/2D Measurements & Calculations IVSd: 1.5 cm Ao root diam: 2.6 cm LVIDd: 4.6 cm LA dimension: 3.7 cm LVIDs: 2.9 cm LVPWd: 1.2 cm EDV(Teich): 95.1 ml LVOT diam: 2.0 cm ESV(Teich): 32.5 ml LAV (MOD-bp): 70.0 ml RV S Markell: 14.1 cm/sec Doppler Measurements & Calculations MV E max markell: 91.2 cm/sec Ao V2 max: 204.3 cm/sec MV A max markell: 130.5 cm/sec Ao max P.7 mmHg MV E/A: 0.70 Ao V2 mean: 145.7 cm/sec MV dec time: 0.17 sec Ao mean P.7 mmHg Ao V2 VTI: 47.7 cm AYDEE(I,D): 1.6 cm2 AYDEE(V,D): 1.7 cm2 LV V1 max P.0 mmHg SV(LVOT): 75.6 ml LV V1 mean P.7 mmHg LV V1 max: 111.6 cm/sec LV V1 mean: 77.0 cm/sec LV V1 VTI: 23.8 cm PA V2 max: 101.8 cm/sec Med Peak E' Markell: 5.0 cm/sec PA max P.1 mmHg Med E/e': 18.2 Lat Peak E' Markell: 8.7 cm/sec Lat E/e': 10.5 Procedure A complete two-dimensional transthoracic echocardiogram was performed (2D, M-mode, Doppler and color flow Doppler). Left Ventricle The left ventricle is normal in size. There is mild concentric left ventricular hypertrophy. Ejection Fraction = 60%. E/A reversal consistent with but not diagnostic of poor LV compliance. The left ventricular wa ll motion is normal. Right Ventricle The right ventricle is normal in size and function. Atria Normal left and right atrial size and function. Mitral Valve The mitral valve is normal in structure and function. Tricuspid Valve The tricuspid valve is normal in structure and function. There was insufficient TR detected to calcul ate RV systolic pressure. Aortic Valve The aortic valve is normal in structure and function. Trace to mild aortic regurgitation. Pulmonic Valve The pulmonic valve is normal in structure and function. Great Vessels The aortic root is normal size. Pericardium/Pleura There is no pericardial effusion. There is no pleural effusion. Interpretation Summary This degree of valvular regurgitation is within normal limits. There is mild concentric left ventricu lar hypertrophy. The left ventricular wall motion is normal. Ejection Fraction = 60%. MD Shakeel Barajas 10/29/2019 10:45 AM
[2019-10-29] MEDS ORDERED: CEFTRIAXONE 2 GM in DEXTROSE 5%-WATER 100 ML IVPB SCH (11:30)
--- NOTE | 2019-10-29 11:55 | CONSULT ---
Admitting History and Physical - Primary Care Physician PCP: Shirley Osorio - Admission History of Present Illness: PEr EMR- 78yo M hx IDDM, HTN, CAD ([place] 1993, no stents), HLD, hx smoking (120 pack-year, quit 3mo ago), and b/l leg weakness (x1yr, unknown cause, walks with walker) BIBA from home for b/l leg weakness, word finding difficulty, and amnesia to day , with associated urinary incontinence; admitted for CVA/TIA work up vs meningitis. Head CT no acute pathology, thoracic and lumbar Chronic advanced intervertebral osteochondrosis is noted from the T6-7 down through the T11-12 levels, and at the L2-3 through the L4-5 levels, as described above. Prominent disc osteophyte complexes at T6-7, T7-8 and T8-9, which are producing moderate central spinal canal stenoses, and posterior displacement of the thecal sac, but without clear evidence of spinal cord compression. Smaller disc osteophyte complexes are noted at T11-12 and L3-4 producing mild central spinal canal stenoses. 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 History Source: Patient, Family Member, Medical Record Limitations to Obtaining History: Clinical Condition - Smoking History Smoking history: Current every day smoker Have you smoked in the past 12 months: Yes Aproximately how many cigarettes per day: 22 If you are a former smoker, when did you quit?: may/2019 - Alcohol/Substance Use Hx Alcohol Use: No History - Admission Reason For Visit: WORD FINDING DIFFICULTY, WEAKNESS OF BOTH LOWER - Diagnostics X-ray: Report Reviewed CT Scan: Report Reviewed MRI: Pending - General Mental Status: Alert and Oriented, Awake and Alert, Able to Follow Commands, Forgetful Ability to Follow Directions: Good Head/Neck Control: WFL - Hearing Hearing: Functional Speech Evaluation - Communication Primary Language: [id number] Communication: Yes: Within Normal Limits - Speech Production Able to Make Needs Known: Yes: WNL Intelligibility: Yes: WNL - Speech Characteristics Voice Loudness: Normal Voice Pitch: Yes: Normal Voice Phonatory-based Quality: Yes: Normal Speech Pattern: Normal Speech Clarity: < 100% Nasal Resonance: Normal Articulation: Yes: Precise Rate of Speech: Intact - Language/Auditory Comprehension Follows: Yes: 1 Stage Simple Commands - Language/Verbal Expression Able to Respond to Simple Queries: Yes: WNL Able to Communicate Wants and Needs: Yes: WNL Functional Communication Status: Yes: WNL - Swallow Evaluation/Bedside Assessment Current Nutritional Intake: NPO Oral Secretions: Yes: WFL Dentition: Yes: Adequate Facial Symmetry on Retraction: Symmetrical Facial Movement: Controlled Sensation: Normal Against Resistance Opening: Normal Against Resistance Closing: Normal Pucker Lips: Normal Smile: Normal Lingual Movement: Normal, Symmetric Lingual Speed of Movement: Normal Lingual Movement Strgth Against Opposition: Normal Lingual Movement Characteristics: Normal Velopharyngeal Movement: Normal Laryngeal Elevation: WFL Laryngeal Movement: Able to Palpate Rate of Intake: WFL Bolus Size: WFL Labial Seal: WFL Chewing: WFL Oral Prep Time: WFL A-P Transit: WFL Pocketing: None Timing of Swallow: WFL Coughing/Throat Clear: No Change in Voice: No Recommendations - Speech Evaluation, Impression/Plan Impression: Speech production, language, swallowing intact, - Dysphagia Impressions/Plan Swallowing Skills: WF Dysphagia Impressions: No Impairment *Silent aspiration: cannot be R/O at bedside Dysphagia Treatment Plan: OOB for meals, OOB for 1 h. after meals - Recommendations Diet Consistency: Regular Medication Administration: Whole with water Liquids: Thin Liquids
[2019-10-29] MEDS ORDERED: SODIUM CHLORIDE 1,000 ML IV SCH (14:39)
--- NOTE | 2019-10-29 15:51 | CONSULT ---
Consult Consult Specialty:: Nephrology Reason for Consultation:: NILAY - History of Present Illness Chief Complaint: weakness History of Present Illness: Pt is a 78 year old male with pmhx of DM, HTN, CAD with [place], HLD, 120 packe year hx on smoking who presents with increased weakness and poor appetite. He has had difficultly speaking as well. He was found to have elevated creatinine and I was called to evaluate him. His was at bedside and was able to give history. He does not remember what happened. They deny history of CKD. He denies nsaid use. He did have an episode of urinary incontinence. - History Source History Provided By: Patient, Medical Record - Past Medical History Cardio/Vascular: Yes: CAD, HTN Endocrine: Yes: Diabetes Mellitus - Alcohol/Substance Use Hx Alcohol Use: No - Smoking History Smoking history: Current every day smoker Have you smoked in the past 12 months: Yes Aproximately how many cigarettes per day: 22 If you are a former smoker, when did you quit?: may/2019 Home Medications - Allergies Allergies/Adverse Reactions: Allergies Allergy/AdvReac Type Severity Reaction Status Date / Time No Known Allergies Allergy Verified 10/28/19 22:27 - Home Medications Home Medications: Ambulatory Orders RX: Aspirin Coated [Ecotrin -] 81 mg PO DAILY 07/28/12 RX: Atorvastatin Ca [Lipitor] 40 mg PO HS 07/28/12 RX: Hydrochlorothiazide [Hctz] 12.5 mg PO DAILY 07/28/12 RX: Losartan Potassium 50 mg PO BID 07/28/12 RX: metFORMIN XR [Glucophage Xr -] 500 mg PO BID 07/28/12 Carvedilol [Coreg -] 3.125 mg PO BID 10/29/19 Insulin (Levemir) [Levemir Vial] 14 unit SQ HS 10/29/19 Nateglinide [Starlix (Nf)] 120 mg PO TID 10/29/19 Family Medical History Family History: Denies Review of Systems - Review of Systems Constitutional: reports: Loss of Appetite, Malaise. denies: Chills Eyes: reports: No Symptoms HENT: reports: No Symptoms Neck: reports: No Symptoms Cardiovascular: reports: No Symptoms Respiratory: reports: No Symptoms Gastrointestinal: reports: No Symptoms Genitourinary: reports: Incontinence Musculoskeletal: reports: Muscle Weakness Neurological: reports: Change in Speech, Confusion Endocrine: reports: No Symptoms Hematology/Lymphatic: reports: No Symptoms Psychiatric: reports: No Symptoms Physical Exam Vital Signs: Vital Signs Temperature 98.3 F 10/29/19 07:38 Pulse Rate 84 10/29/19 15:14 Respiratory Rate 18 10/29/19 15:14 Blood Pressure 125/56 L 10/29/19 15:14 O2 Sat by Pulse Oximetry (%) 97 10/29/19 15:14 Constitutional: Yes: Calm Eyes: Yes: Conjunctiva Clear HENT: Yes: Atraumatic Neck: Yes: Supple Cardiovascular: Yes: S1, S2 Respiratory: Yes: CTA Bilaterally Gastrointestinal: Yes: Normal Bowel Sounds, Soft Renal/: Yes: WNL Musculoskeletal: Yes: Muscle Weakness Edema: No Integumentary: Yes: WNL Neurological: Yes: Confusion Psychiatric: Yes: Oriented Labs: CBC, BMP 10/29/19 07:50 10/29/19 07:50 Laboratory Tests 07/30/12 10/28/19 10/28/19 05:40 02:35 22:14 WBC Hgb 12.9 Sodium Potassium Creatinine 0.9 Urine Protein 2+ H Urine Blood Negative 10/28/19 10/29/19 10/29/19 22:14 07:50 07:50 WBC 4.2 Hgb 12.0 Sodium 137 Potassium 3.7 Creatinine 1.4 H 1.3 Urine Protein Urine Blood Imaging - Results Cat Scan: Report Reviewed Ultrasound: Report Reviewed Problem List - Problems (1) NILAY (acute kidney injury) Code(s): N17.9 - ACUTE KIDNEY FAILURE, UNSPECIFIED (2) Bilateral leg weakness Code(s): R29.898 - OTH SYMPTOMS AND SIGNS INVOLVING THE MUSCULOSKELETAL SYSTEM (3) Word finding difficulty Code(s): R47.89 - OTHER SPEECH DISTURBANCES Assessment/Plan Current Medications Generic Name Dose Route Start Last Admin Trade Name Freq PRN Reason Stop Dose Admin Acetaminophen 650 mg 10/29/19 04:53 Tylenol - PO Q6H PRN PAIN LEVEL 6-10 Aspirin 325 mg 10/29/19 10:00 Ecotrin - PO DAILY SÁNCHEZ Vancomycin HCl 1,250 mg/ 250 mls @ 250 mls/2 hr 10/29/19 23:15 Dextrose IVPB Q24H SÁNCHEZ Protocol Ceftriaxone Sodium 2 gm/ 100 mls @ 200 mls/hr 10/29/19 11:30 10/29/19 11:12 Dextrose IVPB 200 mls/hr BID SÁNCHEZ Administration Sodium Chloride 1,000 mls @ 75 mls/hr 10/29/19 14:39 10/29/19 15:07 Normal Saline - IV 75 mls/hr ASDIR SÁNCHEZ Administration Insulin Aspart 1 vial 10/29/19 07:00 10/29/19 11:12 Novolog Vial Sliding Scale - SQ Not Given ACHS SÁNCHEZ Protocol Impression 1. NILAY 2. change in mental status 3. weakness 4. dm 5. htn 6. CAD 7. AAA Plan - renal function is improving with fluids - likely in part pre-renal disease - renal ultrasound reviewed - repeat labs in am - cont saline - bp stable
--- NOTE | 2019-10-29 18:15 | PN ---
Physical Exam: SUBJECTIVE: Patient seen and examined at the bedside. Noted that he was feeling better and denies remembering the events of yesterday. Currently only endorses a non-productive cough. Denies cp, sob, abd pain, n/v/c/d, headaches, dizziness , lightheadedness, fevers, chills. OBJECTIVE: Vital Signs Period Temp Pulse Resp BP Sys/Bailey Pulse Ox Last 24 Hr 97.8 F-102.1 F 44-84 18-18 116-159/56-85 94-98 GENERAL: The patient is awake, alert, and fully oriented, in no acute distress. HEAD: Normal with no signs of trauma. EYES: PERRL, extraocular movements intact, sclera anicteric, conjunctiva clear. ENT: Oropharynx clear without exudates, dry mucous membranes. LUNGS: Breath sounds equal, with noted crackles in the bilateral bases. No auscultated wheezes. HEART: Regular rate and rhythm, S1, S2 without murmur, rub. ABDOMEN: Soft, nontender, nondistended, normoactive bowel sounds, no guarding, no rebound, no masses. EXTREMITIES: 2+ pulses, warm, well-perfused, no edema. NEUROLOGICAL: Cranial nerves II through XII grossly intact. 5/5 strength bilaterally in the upper extremities. 4/5 muscle strength bilaterally in the LE. Sensation is intact to gross touch throughout. PSYCH: Normal mood, normal affect. SKIN: Warm, dry, normal turgor, no rashes or lesions noted. Laboratory Results - last 24 hr 10/28/19 10/28/19 10/28/19 02:35 16:25 22:14 WBC RBC Hgb Hct MCV MCH MCHC RDW Plt Count MPV Absolute Neuts (auto) Neutrophils % Lymphocytes % Monocytes % Eosinophils % Basophils % Nucleated RBC % PT with INR 12.00 INR 1.02 PTT (Actin FS) 32.7 VBG pH POC VBG pCO2 POC VBG pO2 VBG HCO3 VBG O2 Sat ([place]) VBG Base Excess Sodium Potassium Chloride Carbon Dioxide Anion Gap BUN Creatinine Est GFR (CKD-EPI)AfAm Est GFR (CKD-EPI)NonAf POC Glucometer Random Glucose Hemoglobin A1c % Lactic Acid Calcium Phosphorus Magnesium Total Bilirubin AST ALT Alkaline Phosphatase Creatine Kinase Creatine Kinase Index CK-MB (CK-2) Troponin I C-Reactive Protein Total Protein Albumin Triglycerides Cholesterol Total LDL Cholesterol HDL Cholesterol Vitamin B12 TSH Urine Color Yellow Urine Appearance Clear Urine pH 5.5 Ur Specific [place] 1.023 Urine Protein 2+ H Urine Glucose (UA) Negative Urine Ketones Trace H Urine Blood Negative Urine Nitrite Negative Urine Bilirubin Negative Urine Urobilinogen 0.2 Ur Leukocyte Esterase Negative Urine WBC (Auto) 1 Urine RBC (Auto) 7 Urine Casts (Auto) 2 U Epithel Cells (Auto) 0.5 Urine Bacteria (Auto) 0.8 Influenza A (Rapid) Influenza B (Rapid) Blood Type O POSITIVE Antibody Screen 10/28/19 10/28/19 10/28/19 22:14 22:14 22:14 WBC 4.8 RBC 4.04 Hgb 12.9 Hct 38.7 MCV 95.6 MCH 32.0 MCHC 33.5 RDW 14.1 Plt Count 177 MPV 8.6 Absolute Neuts (auto) 3.5 Neutrophils % 72.9 Lymphocytes % 8.5 Monocytes % 16.0 H D Eosinophils % 2.2 Basophils % 0.4 Nucleated RBC % 0 PT with INR INR PTT (Actin FS) VBG pH POC VBG pCO2 POC VBG pO2 VBG HCO3 VBG O2 Sat ([place]) VBG Base Excess Sodium 136 Potassium 4.0 Chloride 101 Carbon Dioxide 31 Anion Gap 5 L BUN 21.8 H Creatinine 1.4 H Est GFR (CKD-EPI)AfAm 55.77 Est GFR (CKD-EPI)NonAf 48.12 POC Glucometer Random Glucose 151 H Hemoglobin A1c % Lactic Acid Calcium 9.8 Phosphorus Magnesium Total Bilirubin 0.4 AST 21 ALT 23 Alkaline Phosphatase 86 Creatine Kinase 186 Creatine Kinase Index 1.1 CK-MB (CK-2) 2.1 Troponin I < 0.02 C-Reactive Protein Total Protein 7.3 Albumin 4.0 Triglycerides 175 H Cholesterol 167 Total LDL Cholesterol 82 HDL Cholesterol 60 Vitamin B12 TSH Urine Color Urine Appearance Urine pH Ur Specific [place] Urine Protein Urine Glucose (UA) Urine Ketones Urine Blood Urine Nitrite Urine Bilirubin Urine Urobilinogen Ur Leukocyte Esterase Urine WBC (Auto) Urine RBC (Auto) Urine Casts (Auto) U Epithel Cells (Auto) Urine Bacteria (Auto) Influenza A (Rapid) Influenza B (Rapid) Blood Type Antibody Screen 10/28/19 10/28/19 10/28/19 22:14 23:44 23:44 WBC RBC Hgb Hct MCV MCH MCHC RDW Plt Count MPV Absolute Neuts (auto) Neutrophils % Lymphocytes % Monocytes % Eosinophils % Basophils % Nucleated RBC % PT with INR INR PTT (Actin FS) VBG pH 7.43 H POC VBG pCO2 39.0 POC VBG pO2 < 49 H VBG HCO3 25.5 VBG O2 Sat ([place]) 78.7 VBG Base Excess 1.7 Sodium Potassium Chloride Carbon Dioxide Anion Gap BUN Creatinine Est GFR (CKD-EPI)AfAm Est GFR (CKD-EPI)NonAf POC Glucometer Random Glucose Hemoglobin A1c % Lactic Acid Calcium Phosphorus Magnesium Total Bilirubin AST ALT Alkaline Phosphatase Creatine Kinase Creatine Kinase Index CK-MB (CK-2) Troponin I < 0.02 C-Reactive Protein Total Protein Albumin Triglycerides Cholesterol Total LDL Cholesterol HDL Cholesterol Vitamin B12 TSH Urine Color Urine Appearance Urine pH Ur Specific [place] Urine Protein Urine Glucose (UA) Urine Ketones Urine Blood Urine Nitrite Urine Bilirubin Urine Urobilinogen Ur Leukocyte Esterase Urine WBC (Auto) Urine RBC (Auto) Urine Casts (Auto) U Epithel Cells (Auto) Urine Bacteria (Auto) Influenza A (Rapid) Influenza B (Rapid) Blood Type O POSITIVE Antibody Screen Negative 10/29/19 10/29/19 10/29/19 00:01 00:35 07:00 WBC RBC Hgb Hct MCV MCH MCHC RDW Plt Count MPV Absolute Neuts (auto) Neutrophils % Lymphocytes % Monocytes % Eosinophils % Basophils % Nucleated RBC % PT with INR INR PTT (Actin FS) VBG pH POC VBG pCO2 POC VBG pO2 VBG HCO3 VBG O2 Sat ([place]) VBG Base Excess Sodium Potassium Chloride Carbon Dioxide Anion Gap BUN Creatinine Est GFR (CKD-EPI)AfAm Est GFR (CKD-EPI)NonAf POC Glucometer Random Glucose Hemoglobin A1c % Lactic Acid 1.6 2.9 H* Calcium Phosphorus Magnesium Total Bilirubin AST ALT Alkaline Phosphatase Creatine Kinase Creatine Kinase Index CK-MB (CK-2) Troponin I C-Reactive Protein Total Protein Albumin Triglycerides Cholesterol Total LDL Cholesterol HDL Cholesterol Vitamin B12 TSH Urine Color Urine Appearance Urine pH Ur Specific [place] Urine Protein Urine Glucose (UA) Urine Ketones Urine Blood Urine Nitrite Urine Bilirubin Urine Urobilinogen Ur Leukocyte Esterase Urine WBC (Auto) Urine RBC (Auto) Urine Casts (Auto) U Epithel Cells (Auto) Urine Bacteria (Auto) Influenza A (Rapid) Negative Influenza B (Rapid) Negative Blood Type Antibody Screen 10/29/19 10/29/19 10/29/19 07:13 07:50 07:50 WBC 4.2 RBC 3.78 L Hgb 12.0 Hct 36.1 MCV 95.3 MCH 31.9 MCHC 33.4 RDW 13.9 Plt Count 163 MPV 8.1 Absolute Neuts (auto) 2.9 Neutrophils % 70.0 Lymphocytes % 10.0 Monocytes % 18.9 H Eosinophils % 0.7 Basophils % 0.4 Nucleated RBC % 0 PT with INR INR PTT (Actin FS) VBG pH POC VBG pCO2 POC VBG pO2 VBG HCO3 VBG O2 Sat ([place]) VBG Base Excess Sodium 137 Potassium 3.7 Chloride 103 Carbon Dioxide 28 Anion Gap 6 L BUN 20.3 H Creatinine 1.3 Est GFR (CKD-EPI)AfAm 61.00 Est GFR (CKD-EPI)NonAf 52.63 POC Glucometer 150 Random Glucose 146 H Hemoglobin A1c % Lactic Acid Calcium 8.6 Phosphorus 3.0 Magnesium 1.9 Total Bilirubin 0.3 AST 22 ALT 20 Alkaline Phosphatase 72 Creatine Kinase Creatine Kinase Index CK-MB (CK-2) Troponin I C-Reactive Protein 0.4 H Total Protein 6.5 Albumin 3.5 Triglycerides Cholesterol Total LDL Cholesterol HDL Cholesterol Vitamin B12 464 TSH 1.56 Urine Color Urine Appearance Urine pH Ur Specific [place] Urine Protein Urine Glucose (UA) Urine Ketones Urine Blood Urine Nitrite Urine Bilirubin Urine Urobilinogen Ur Leukocyte Esterase Urine WBC (Auto) Urine RBC (Auto) Urine Casts (Auto) U Epithel Cells (Auto) Urine Bacteria (Auto) Influenza A (Rapid) Influenza B (Rapid) Blood Type Antibody Screen 10/29/19 10/29/19 10/29/19 07:50 10:14 16:25 WBC RBC Hgb Hct MCV MCH MCHC RDW Plt Count MPV Absolute Neuts (auto) Neutrophils % Lymphocytes % Monocytes % Eosinophils % Basophils % Nucleated RBC % PT with INR INR PTT (Actin FS) VBG pH POC VBG pCO2 POC VBG pO2 VBG HCO3 VBG O2 Sat ([place]) VBG Base Excess Sodium Potassium Chloride Carbon Dioxide Anion Gap BUN Creatinine Est GFR (CKD-EPI)AfAm Est GFR (CKD-EPI)NonAf POC Glucometer 156 Random Glucose Hemoglobin A1c % 6.0 Lactic Acid 2.2 H* Calcium Phosphorus Magnesium Total Bilirubin AST ALT Alkaline Phosphatase Creatine Kinase Creatine Kinase Index CK-MB (CK-2) Troponin I C-Reactive Protein Total Protein Albumin Triglycerides Cholesterol Total LDL Cholesterol HDL Cholesterol Vitamin B12 TSH Urine Color Urine Appearance Urine pH Ur Specific [place] Urine Protein Urine Glucose (UA) Urine Ketones Urine Blood Urine Nitrite Urine Bilirubin Urine Urobilinogen Ur Leukocyte Esterase Urine WBC (Auto) Urine RBC (Auto) Urine Casts (Auto) U Epithel Cells (Auto) Urine Bacteria (Auto) Influenza A (Rapid) Influenza B (Rapid) Blood Type Antibody Screen 10/29/19 16:49 WBC RBC Hgb Hct MCV MCH MCHC RDW Plt Count MPV Absolute Neuts (auto) Neutrophils % Lymphocytes % Monocytes % Eosinophils % Basophils % Nucleated RBC % PT with INR INR PTT (Actin FS) VBG pH POC VBG pCO2 POC VBG pO2 VBG HCO3 VBG O2 Sat ([place]) VBG Base Excess Sodium Potassium Chloride Carbon Dioxide Anion Gap BUN Creatinine Est GFR (CKD-EPI)AfAm Est GFR (CKD-EPI)NonAf POC Glucometer 144 Random Glucose Hemoglobin A1c % Lactic Acid Calcium Phosphorus Magnesium Total Bilirubin AST ALT Alkaline Phosphatase Creatine Kinase Creatine Kinase Index CK-MB (CK-2) Troponin I C-Reactive Protein Total Protein Albumin Triglycerides Cholesterol Total LDL Cholesterol HDL Cholesterol Vitamin B12 TSH Urine Color Urine Appearance Urine pH Ur Specific [place] Urine Protein Urine Glucose (UA) Urine Ketones Urine Blood Urine Nitrite Urine Bilirubin Urine Urobilinogen Ur Leukocyte Esterase Urine WBC (Auto) Urine RBC (Auto) Urine Casts (Auto) U Epithel Cells (Auto) Urine Bacteria (Auto) Influenza A (Rapid) Influenza B (Rapid) Blood Type Antibody Screen Active Medications Generic Name Dose Route Start Last Admin Trade Name Freq PRN Reason Stop Dose Admin Acetaminophen 650 mg 10/29/19 04:53 Tylenol - PO Q6H PRN PAIN LEVEL 6-10 Aspirin 325 mg 10/29/19 10:00 Ecotrin - PO DAILY [facility] Aspirin 81 mg 10/30/19 10:00 Ecotrin - PO DAILY [facility] Atorvastatin Calcium 40 mg 10/29/19 22:00 Lipitor - PO HS [facility] Carvedilol 3.125 mg 10/29/19 22:00 Coreg - PO BID [facility] Vancomycin HCl 1,250 mg/ 250 mls @ 250 mls/2 hr 10/29/19 23:15 Dextrose IVPB Q24H [facility] Protocol Ceftriaxone Sodium 2 gm/ 100 mls @ 200 mls/hr 10/29/19 11:30 10/29/19 11:12 Dextrose IVPB 200 mls/hr BID SÁNCHEZ Administration Sodium Chloride 1,000 mls @ 75 mls/hr 10/29/19 14:39 10/29/19 15:07 Normal Saline - IV 75 mls/hr ASDIR SÁNCHEZ Administration Insulin Aspart 1 vial 10/29/19 07:00 10/29/19 17:02 Novolog Vial Sliding Scale - SQ Not Given ACHS SÁNCHEZ Protocol Insulin Detemir 14 units 10/29/19 22:00 Levemir Vial SQ HS SÁNCHEZ Losartan Potassium 50 mg 10/29/19 22:00 Cozaar - PO BID SÁNCHEZ Non-Formulary Medication 120 mg 10/29/19 22:00 Nateglinide PO TID SÁNCHEZ ASSESSMENT/PLAN: Cliff Temple is a 78 year old male with a past medical history of IDDM, HTN, CAD ([place] 1993, no stents), HLD, hx smoking (120 pack-year, quit 3mo ago), and b/l leg weakness (x1yr, unknown cause, walks with walker) admitted for b/l leg weakness, word finding difficulty, and amnesia, with associated urinary incontinence. Worsening b/l leg weakness associated with amnesia, urine incontinence and word difficulty possibly due to TIA/CVA - head CT no acute pathology, thoracic and lumbar Chronic advanced intervertebral osteochondrosis is noted from the T6-7 down through the T11-12 levels, and at the L2-3 through the L4-5 levels - Prominent disc osteophyte complexes at T6-7, T7-8 and T8-9, which are producing moderate central spinal canal stenoses, and posterior displacement of the thecal sac, but without clear evidence of spinal cord compression. - Smaller disc osteophyte complexes are noted at T11-12 and L3-4 producing mild central spinal canal stenoses. - carotid U/S showing mild atherosclerotic disease with no hemodynamically significant stenosis - echo showing mild concentric hypertrophy, EF 60%, trace to mild aortic regurgitation - Neurology consulted, recs appreciated, hold off on spinal tap due to low suspicion of meningitis - for outpatient EMG - myopathy workup - speech and swallow eval noting patient can be resumed on regular diet - neurochecks Q2h - brain MRI follow up, pending read - continue statin and aspirin New onset fever and waxing and waning mental status and Neuro deficit - neuro status has resolved, currently patient is aOx3 - no clear source of infection identified outside of brain - no further fevers since ED - Urine and blood cultures - no evidence of PNA on CT - ID consulted, antibiotics as per ID - neuro noting to hold off on spinal tap due to low suspicion of meningitis - lactic acidosis 2.9-->2.2, continue IV hydration, continue to monitor lactic acid NILAY - improving - renal U/S with no evidence of hydronephrosis or acute renal pathology - hydration at 75 cc/hr - monitor urine output - Dr Paulson consulted, recs appreciated - avoid nephrotoxic agents AAA on CT - 4.[address] - 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 - New Patient This patient is new to me today: Yes Date on this admission: 10/29/19 - Critical Care Critical Care patient: No
--- NOTE | 2019-10-29 18:25 | PN ---
Teaching Attending Note Name of Resident: Matt Diana ATTENDING PHYSICIAN STATEMENT I saw and evaluated the patient. I reviewed the resident's note and discussed the case with the resident. I agree with the resident's findings and plan as documented with exceptions below. SUBJECTIVE: Patient seen and examined. awake Ox3, unable to recall event prior to admission. at bedside, reports cough x 2 days, but no fevers, abdominal or urinary symptoms. OBJECTIVE: Vital Signs Period Temp Pulse Resp BP Sys/Bailey Pulse Ox Last 24 Hr 97.8 F-102.1 F 44-84 18-18 116-159/56-85 94-98 Intake & Output 10/26/19 10/27/19 10/28/19 10/29/19 23:59 23:59 23:59 23:59 Output Total 1125 Balance -1125 Weight 180 lb general: sitting in stretcher when seen in ED around 1230 PM, no acute distress HEENT; PERRL, EOMI Neck: soft, supple Chest: bibasilar fine rales Abdomen;Soft, NT, ND, no CVA or suprapubic tenderness Extremities: no edema Neuro: AAOx3, power 5/5, speech coherent, appropriate, facial symmetry, tongue midline, moves all extremities freely, EOMI, PERRL Musculoskeletal: no spinal tenderness Home Medications Medication Instructions Recorded Aspirin Coated [Ecotrin -] 81 mg PO DAILY 07/28/12 Atorvastatin Ca [Lipitor] 40 mg PO HS 07/28/12 Hydrochlorothiazide [Hctz] 12.5 mg PO DAILY 07/28/12 Losartan Potassium 50 mg PO BID 07/28/12 metFORMIN XR [Glucophage Xr -] 500 mg PO BID 07/28/12 Carvedilol [Coreg -] 3.125 mg PO BID 10/29/19 Insulin (Levemir) [Levemir Vial] 14 unit SQ HS 10/29/19 Nateglinide [Starlix (Nf)] 120 mg PO TID 10/29/19 Active Medications Acetaminophen (Tylenol -) 650 mg PO Q6H PRN PRN Reason: PAIN LEVEL 6-10 Aspirin (Ecotrin -) 325 mg PO DAILY [facility] Aspirin (Ecotrin -) 81 mg PO DAILY [facility] Atorvastatin Calcium (Lipitor -) 40 mg PO HS [facility] Carvedilol (Coreg -) 3.125 mg PO BID [facility] Vancomycin HCl 1,250 mg/ (Dextrose) 250 mls @ 250 mls/2 hr IVPB Q24H [facility]; Protocol Ceftriaxone Sodium 2 gm/ (Dextrose) 100 mls @ 200 mls/hr IVPB BID [facility] Last Admin: 10/29/19 11:12 Dose: 200 mls/hr Sodium Chloride (Normal Saline -) 1,000 mls @ 75 mls/hr IV ASDIR [facility] Last Admin: 10/29/19 15:07 Dose: 75 mls/hr Insulin Aspart (Novolog Vial Sliding Scale -) 1 vial SQ ACHS [facility]; Protocol Last Admin: 10/29/19 17:02 Dose: Not Given Insulin Detemir (Levemir Vial) 14 units SQ HS [facility] Losartan Potassium (Cozaar -) 50 mg PO BID [facility] Non-Formulary Medication (Nateglinide) 120 mg PO TID [facility] Laboratory Results - last 24 hr 10/28/19 10/28/19 10/28/19 02:35 16:25 22:14 WBC RBC Hgb Hct MCV MCH MCHC RDW Plt Count MPV Absolute Neuts (auto) Neutrophils % Lymphocytes % Monocytes % Eosinophils % Basophils % Nucleated RBC % PT with INR 12.00 INR 1.02 PTT (Actin FS) 32.7 VBG pH POC VBG pCO2 POC VBG pO2 VBG HCO3 VBG O2 Sat ([place]ira) VBG Base Excess Sodium Potassium Chloride Carbon Dioxide Anion Gap BUN Creatinine Est GFR (CKD-EPI)AfAm Est GFR (CKD-EPI)NonAf POC Glucometer Random Glucose Hemoglobin A1c % Lactic Acid Calcium Phosphorus Magnesium Total Bilirubin AST ALT Alkaline Phosphatase Creatine Kinase Creatine Kinase Index CK-MB (CK-2) Troponin I C-Reactive Protein Total Protein Albumin Triglycerides Cholesterol Total LDL Cholesterol HDL Cholesterol Vitamin B12 TSH Urine Color Yellow Urine Appearance Clear Urine pH 5.5 Ur Specific [place] 1.023 Urine Protein 2+ H Urine Glucose (UA) Negative Urine Ketones Trace H Urine Blood Negative Urine Nitrite Negative Urine Bilirubin Negative Urine Urobilinogen 0.2 Ur Leukocyte Esterase Negative Urine WBC (Auto) 1 Urine RBC (Auto) 7 Urine Casts (Auto) 2 U Epithel Cells (Auto) 0.5 Urine Bacteria (Auto) 0.8 Influenza A (Rapid) Influenza B (Rapid) Blood Type O POSITIVE Antibody Screen 10/28/19 10/28/19 10/28/19 22:14 22:14 22:14 WBC 4.8 RBC 4.04 Hgb 12.9 Hct 38.7 MCV 95.6 MCH 32.0 MCHC 33.5 RDW 14.1 Plt Count 177 MPV 8.6 Absolute Neuts (auto) 3.5 Neutrophils % 72.9 Lymphocytes % 8.5 Monocytes % 16.0 H D Eosinophils % 2.2 Basophils % 0.4 Nucleated RBC % 0 PT with INR INR PTT (Actin FS) VBG pH POC VBG pCO2 POC VBG pO2 VBG HCO3 VBG O2 Sat ([place]ira) VBG Base Excess Sodium 136 Potassium 4.0 Chloride 101 Carbon Dioxide 31 Anion Gap 5 L BUN 21.8 H Creatinine 1.4 H Est GFR (CKD-EPI)AfAm 55.77 Est GFR (CKD-EPI)NonAf 48.12 POC Glucometer Random Glucose 151 H Hemoglobin A1c % Lactic Acid Calcium 9.8 Phosphorus Magnesium Total Bilirubin 0.4 AST 21 ALT 23 Alkaline Phosphatase 86 Creatine Kinase 186 Creatine Kinase Index 1.1 CK-MB (CK-2) 2.1 Troponin I < 0.02 C-Reactive Protein Total Protein 7.3 Albumin 4.0 Triglycerides 175 H Cholesterol 167 Total LDL Cholesterol 82 HDL Cholesterol 60 Vitamin B12 TSH Urine Color Urine Appearance Urine pH Ur Specific [place] Urine Protein Urine Glucose (UA) Urine Ketones Urine Blood Urine Nitrite Urine Bilirubin Urine Urobilinogen Ur Leukocyte Esterase Urine WBC (Auto) Urine RBC (Auto) Urine Casts (Auto) U Epithel Cells (Auto) Urine Bacteria (Auto) Influenza A (Rapid) Influenza B (Rapid) Blood Type Antibody Screen 10/28/19 10/28/19 10/28/19 22:14 23:44 23:44 WBC RBC Hgb Hct MCV MCH MCHC RDW Plt Count MPV Absolute Neuts (auto) Neutrophils % Lymphocytes % Monocytes % Eosinophils % Basophils % Nucleated RBC % PT with INR INR PTT (Actin FS) VBG pH 7.43 H POC VBG pCO2 39.0 POC VBG pO2 < 49 H VBG HCO3 25.5 VBG O2 Sat ([place]ira) 78.7 VBG Base Excess 1.7 Sodium Potassium Chloride Carbon Dioxide Anion Gap BUN Creatinine Est GFR (CKD-EPI)AfAm Est GFR (CKD-EPI)NonAf POC Glucometer Random Glucose Hemoglobin A1c % Lactic Acid Calcium Phosphorus Magnesium Total Bilirubin AST ALT Alkaline Phosphatase Creatine Kinase Creatine Kinase Index CK-MB (CK-2) Troponin I < 0.02 C-Reactive Protein Total Protein Albumin Triglycerides Cholesterol Total LDL Cholesterol HDL Cholesterol Vitamin B12 TSH Urine Color Urine Appearance Urine pH Ur Specific [place] Urine Protein Urine Glucose (UA) Urine Ketones Urine Blood Urine Nitrite Urine Bilirubin Urine Urobilinogen Ur Leukocyte Esterase Urine WBC (Auto) Urine RBC (Auto) Urine Casts (Auto) U Epithel Cells (Auto) Urine Bacteria (Auto) Influenza A (Rapid) Influenza B (Rapid) Blood Type O POSITIVE Antibody Screen Negative 10/29/19 10/29/19 10/29/19 00:01 00:35 07:00 WBC RBC Hgb Hct MCV MCH MCHC RDW Plt Count MPV Absolute Neuts (auto) Neutrophils % Lymphocytes % Monocytes % Eosinophils % Basophils % Nucleated RBC % PT with INR INR PTT (Actin FS) VBG pH POC VBG pCO2 POC VBG pO2 VBG HCO3 VBG O2 Sat ([place]) VBG Base Excess Sodium Potassium Chloride Carbon Dioxide Anion Gap BUN Creatinine Est GFR (CKD-EPI)AfAm Est GFR (CKD-EPI)NonAf POC Glucometer Random Glucose Hemoglobin A1c % Lactic Acid 1.6 2.9 H* Calcium Phosphorus Magnesium Total Bilirubin AST ALT Alkaline Phosphatase Creatine Kinase Creatine Kinase Index CK-MB (CK-2) Troponin I C-Reactive Protein Total Protein Albumin Triglycerides Cholesterol Total LDL Cholesterol HDL Cholesterol Vitamin B12 TSH Urine Color Urine Appearance Urine pH Ur Specific [place] Urine Protein Urine Glucose (UA) Urine Ketones Urine Blood Urine Nitrite Urine Bilirubin Urine Urobilinogen Ur Leukocyte Esterase Urine WBC (Auto) Urine RBC (Auto) Urine Casts (Auto) U Epithel Cells (Auto) Urine Bacteria (Auto) Influenza A (Rapid) Negative Influenza B (Rapid) Negative Blood Type Antibody Screen 10/29/19 10/29/19 10/29/19 07:13 07:50 07:50 WBC 4.2 RBC 3.78 L Hgb 12.0 Hct 36.1 MCV 95.3 MCH 31.9 MCHC 33.4 RDW 13.9 Plt Count 163 MPV 8.1 Absolute Neuts (auto) 2.9 Neutrophils % 70.0 Lymphocytes % 10.0 Monocytes % 18.9 H Eosinophils % 0.7 Basophils % 0.4 Nucleated RBC % 0 PT with INR INR PTT (Actin FS) VBG pH POC VBG pCO2 POC VBG pO2 VBG HCO3 VBG O2 Sat ([place]) VBG Base Excess Sodium 137 Potassium 3.7 Chloride 103 Carbon Dioxide 28 Anion Gap 6 L BUN 20.3 H Creatinine 1.3 Est GFR (CKD-EPI)AfAm 61.00 Est GFR (CKD-EPI)NonAf 52.63 POC Glucometer 150 Random Glucose 146 H Hemoglobin A1c % Lactic Acid Calcium 8.6 Phosphorus 3.0 Magnesium 1.9 Total Bilirubin 0.3 AST 22 ALT 20 Alkaline Phosphatase 72 Creatine Kinase Creatine Kinase Index CK-MB (CK-2) Troponin I C-Reactive Protein 0.4 H Total Protein 6.5 Albumin 3.5 Triglycerides Cholesterol Total LDL Cholesterol HDL Cholesterol Vitamin B12 464 TSH 1.56 Urine Color Urine Appearance Urine pH Ur Specific [place] Urine Protein Urine Glucose (UA) Urine Ketones Urine Blood Urine Nitrite Urine Bilirubin Urine Urobilinogen Ur Leukocyte Esterase Urine WBC (Auto) Urine RBC (Auto) Urine Casts (Auto) U Epithel Cells (Auto) Urine Bacteria (Auto) Influenza A (Rapid) Influenza B (Rapid) Blood Type Antibody Screen 10/29/19 10/29/19 10/29/19 07:50 10:14 16:25 WBC RBC Hgb Hct MCV MCH MCHC RDW Plt Count MPV Absolute Neuts (auto) Neutrophils % Lymphocytes % Monocytes % Eosinophils % Basophils % Nucleated RBC % PT with INR INR PTT (Actin FS) VBG pH POC VBG pCO2 POC VBG pO2 VBG HCO3 VBG O2 Sat ([place]) VBG Base Excess Sodium Potassium Chloride Carbon Dioxide Anion Gap BUN Creatinine Est GFR (CKD-EPI)AfAm Est GFR (CKD-EPI)NonAf POC Glucometer 156 Random Glucose Hemoglobin A1c % 6.0 Lactic Acid 2.2 H* Calcium Phosphorus Magnesium Total Bilirubin AST ALT Alkaline Phosphatase Creatine Kinase Creatine Kinase Index CK-MB (CK-2) Troponin I C-Reactive Protein Total Protein Albumin Triglycerides Cholesterol Total LDL Cholesterol HDL Cholesterol Vitamin B12 TSH Urine Color Urine Appearance Urine pH Ur Specific [place] Urine Protein Urine Glucose (UA) Urine Ketones Urine Blood Urine Nitrite Urine Bilirubin Urine Urobilinogen Ur Leukocyte Esterase Urine WBC (Auto) Urine RBC (Auto) Urine Casts (Auto) U Epithel Cells (Auto) Urine Bacteria (Auto) Influenza A (Rapid) Influenza B (Rapid) Blood Type Antibody Screen 10/29/19 16:49 WBC RBC Hgb Hct MCV MCH MCHC RDW Plt Count MPV Absolute Neuts (auto) Neutrophils % Lymphocytes % Monocytes % Eosinophils % Basophils % Nucleated RBC % PT with INR INR PTT (Actin FS) VBG pH POC VBG pCO2 POC VBG pO2 VBG HCO3 VBG O2 Sat ([place]ira) VBG Base Excess Sodium Potassium Chloride Carbon Dioxide Anion Gap BUN Creatinine Est GFR (CKD-EPI)AfAm Est GFR (CKD-EPI)NonAf POC Glucometer 144 Random Glucose Hemoglobin A1c % Lactic Acid Calcium Phosphorus Magnesium Total Bilirubin AST ALT Alkaline Phosphatase Creatine Kinase Creatine Kinase Index CK-MB (CK-2) Troponin I C-Reactive Protein Total Protein Albumin Triglycerides Cholesterol Total LDL Cholesterol HDL Cholesterol Vitamin B12 TSH Urine Color Urine Appearance Urine pH Ur Specific [place] Urine Protein Urine Glucose (UA) Urine Ketones Urine Blood Urine Nitrite Urine Bilirubin Urine Urobilinogen Ur Leukocyte Esterase Urine WBC (Auto) Urine RBC (Auto) Urine Casts (Auto) U Epithel Cells (Auto) Urine Bacteria (Auto) Influenza A (Rapid) Influenza B (Rapid) Blood Type Antibody Screen MRI brain results pending Aorto/renal US, CT chest results noted ASSESSMENT AND PLAN: 78 yom with PMhx of IDDM, HTN, CAD (1993, no stents), HLD, hx smoking (120 pack-year, quit 3mo ago), and b/l leg weakness (x1yr, unknown cause, walks with walker) admitted with leg weakness, altered speech, ?Amnesia and fever 102 -constellation of leg weakness/Altered speech/?Amnesia -Fever -NILAY, ?suspect dehydration related. -IDDM -HTN -CAD s/p [place] 1993, no stents -HLD -Chronic LE weakness Plan: Symptoms improved, mental status close to baseline per . Follow MRI brain. ASA/statin, neuro checks. Discussed with Dr. Her, recommend holding of on LP given clinical presentation not consistent with meningits/encephalitis like picture Discussed with Dr. Alexander, ID, will follow up recs. Fevers 102 x1, Coarse cough x 2 days, CT chest noted. No other s/s concerning for infection no further fevers. Would aim for monitoring off abx, if no concerns, will follow up with ID/ neurology. renal function improved. Renal input noted, On IVF. Losartan has been resumed. Monitor. Levemir/ISS, Speech/swallow input noted. PO as tolerated. CT spine noted. PT eval, additional spine imaging based on clinical course. DVTPPx start lovenox in 24 hours if no further intervention planned. Plan discussed with patient and at bedside, all questions answered.
--- NOTE | 2019-10-29 18:51 | PN ---
Progress Note (short form) - Note Progress Note: ID CONSULT DICTATED TOXIC METABOLIC ENCEPHALOPATHY NO EVIDENCE OF MENINGITIS AWAIT C/S EMPIRIC CEFTRIAXONE MRI PENDING
[2019-10-29 19:02] VITALS: BMI 24.8
[2019-10-29] MEDS ORDERED: INSULIN (NOVOLOG) ASPART 100 UNITS/ML 10ML VIAL ONE (20:34)
[2019-10-29] MEDS: LOSARTAN POTASSIUM 50 MG TABLET (FP) PO SCH ×2 (21:52→21:58)
[2019-10-29] MEDS: CARVEDILOL 3.125 MG TABLET (FP) PO SCH ×2 (21:52→21:58)
[2019-10-29] MEDS: ATORVASTATIN CA 40 MG TABLET (FP) PO SCH ×2 (21:52→21:58)
[2019-10-29] MEDS: INSULIN (LEVEMIR) 100 UNITS/ML UNITS SQ SCH ×2 (21:52→21:58)
[2019-10-29] MEDS ORDERED: PATIENT'S OWN MEDICATION (NON-FORMULARY) (Nateglinide 120 MG) PO SCH (22:00)
[2019-10-29] MEDS ORDERED: MELATONIN 5 MG TABLETS PO ONE (22:53)
[2019-10-29] MEDS ORDERED: VANCOMYCIN HCL 1,250 MG in DEXTROSE 5%-WATER - 250 ML IVPB SCH (23:15)
[2019-10-29] MEDS ORDERED: HALOPERIDOL LACTATE 5 MG/ML IM ONE (23:27)
[2019-10-30] MEDS: INSULIN SLIDING SCALE (NOVOLOG) 1 VIAL SQ SCH ×4 (06:00→22:25)
[2019-10-30 07:35] LABS: CHOLESTEROL 123 mg/dL (50-200); HDL CHOLESTEROL 48 mg/dL (40-60); LDL CHOLESTEROL (ONLY SJRH) 62 mg/dL (5-100); TRIGLYCERIDES 130 mg/dL (0-150)
[2019-10-30] MEDS ORDERED: DEXTROSE 5%-WATER 100 ML IVPB ONE (09:23)
[2019-10-30] MEDS: ASPIRIN COATED 81 MG TABLET.EC PO SCH (09:45)
[2019-10-30] MEDS: CARVEDILOL 3.125 MG TABLET (FP) PO SCH ×2 (09:45→21:21)
[2019-10-30] MEDS: LOSARTAN POTASSIUM 50 MG TABLET (FP) PO SCH ×2 (09:45→21:21)
[2019-10-30] MEDS: CEFTRIAXONE 2 GM in DEXTROSE 5%-WATER 100 ML IVPB SCH (09:45)
[2019-10-30] MEDS ORDERED: CARVEDILOL 3.125 MG TABLET (FP) PO SCH (10:00)
--- NOTE | 2019-10-30 10:37 | PN ---
Physical Exam: SUBJECTIVE: Patient seen and examined this AM. Required haldol overnight for agitation. No new complaints. OBJECTIVE: Vital Signs Period Temp Pulse Resp BP Sys/Bailey Pulse Ox Last 24 Hr 98.0 F-100.9 F 77-92 18-20 121-162/56-109 93-97 GENERAL: A&Ox3, NAD HEAD: NCAT EYES: PERRL, EOMI ENT: MMM LUNGS: CTAB HEART: Regular rate and rhythm, S1, S2 without murmur ABDOMEN: Soft, nontender, nondistended, + bowel sounds, no guarding EXTREMITIES: no edema. NEUROLOGICAL: Cranial nerves II through XII grossly intact. SKIN: Warm, dry Laboratory Last Values WBC 4.2 K/mm3 (4.0-10.0) 10/29/19 07:50 RBC 3.78 M/mm3 (4.00-5.60) L 10/29/19 07:50 Hgb 12.0 GM/dL (11.7-16.9) 10/29/19 07:50 Hct 36.1 % (35.4-49) 10/29/19 07:50 MCV 95.3 fl (80-96) 10/29/19 07:50 MCH 31.9 pg (25.7-33.7) 10/29/19 07:50 MCHC 33.4 g/dl (32.0-35.9) 10/29/19 07:50 RDW 13.9 % (11.9-15.9) 10/29/19 07:50 Plt Count 163 K/MM3 (134-434) 10/29/19 07:50 MPV 8.1 fl (7.5-11.1) 10/29/19 07:50 Absolute Neuts (auto) 2.9 K/mm3 (1.5-8.0) 10/29/19 07:50 Neutrophils % 70.0 % (42.8-82.8) 10/29/19 07:50 Lymphocytes % 10.0 % (8-40) 10/29/19 07:50 Monocytes % 18.9 % (3.8-10.2) H 10/29/19 07:50 Eosinophils % 0.7 % (0-4.5) 10/29/19 07:50 Basophils % 0.4 % (0-2.0) 10/29/19 07:50 Nucleated RBC % 0 % (0-0) 10/29/19 07:50 ESR 20 mm/hr (0-20) 10/30/19 06:00 PT with INR 12.00 SEC (9.7-13.0) 10/28/19 22:14 INR 1.02 (0.83-1.09) 10/28/19 22:14 PTT (Actin FS) 32.7 SECONDS (25.2-36.5) 10/28/19 22:14 VBG pH 7.43 (7.31-7.41) H 10/28/19 23:44 POC VBG pCO2 39.0 mmHg (38-52) 10/28/19 23:44 POC VBG pO2 < 49 mmHg (28-48) H 10/28/19 23:44 VBG HCO3 25.5 mmol/L (23-29) 10/28/19 23:44 VBG O2 Sat (Mira) 78.7 % (70-80) 10/28/19 23:44 VBG Base Excess 1.7 meq/l (-2-2) 10/28/19 23:44 Sodium 137 mmol/L (136-145) 10/29/19 07:50 Potassium 3.7 mmol/L (3.5-5.1) 10/29/19 07:50 Chloride 103 mmol/L (98-107) 10/29/19 07:50 Carbon Dioxide 28 mmol/L (21-32) 10/29/19 07:50 Anion Gap 6 MMOL/L (8-16) L 10/29/19 07:50 BUN 20.3 mg/dL (7-18) H 10/29/19 07:50 Creatinine 1.3 mg/dL (0.55-1.3) 10/29/19 07:50 Est GFR (CKD-EPI)AfAm 61.00 10/29/19 07:50 Est GFR (CKD-EPI)NonAf 52.63 10/29/19 07:50 POC Glucometer 135 UNITS (80-120) 10/29/19 21:49 Random Glucose 146 mg/dL (74-106) H 10/29/19 07:50 Hemoglobin A1c % 6.0 % (4.2-6.3) 10/29/19 07:50 Lactic Acid 2.2 mmol/L (0.4-2.0) H* 10/29/19 16:25 Calcium 8.6 mg/dL (8.5-10.1) 10/29/19 07:50 Phosphorus 3.0 mg/dL (2.5-4.9) 10/29/19 07:50 Magnesium 1.9 mg/dL (1.8-2.4) 10/29/19 07:50 Total Bilirubin 0.3 mg/dL (0.2-1) 10/29/19 07:50 AST 22 U/L (15-37) 10/29/19 07:50 ALT 20 U/L (13-61) 10/29/19 07:50 Alkaline Phosphatase 72 U/L (45-117) 10/29/19 07:50 Creatine Kinase 186 U/L (26-308) 10/28/19 22:14 Creatine Kinase Index 1.1 % (0.0-5.0) 10/28/19 22:14 CK-MB (CK-2) 2.1 ng/mL (0.5-3.6) 10/28/19 22:14 Troponin I < 0.02 ng/ml (0.00-0.05) 10/28/19 23:44 C-Reactive Protein 0.4 MG/DL (0.00-0.3) H 10/29/19 07:50 Total Protein 6.5 g/dl (6.4-8.2) 10/29/19 07:50 Albumin 3.5 g/dl (3.4-5.0) 10/29/19 07:50 Triglycerides 130 mg/dL (0-150) 10/30/19 06:00 Cholesterol 123 mg/dL (50-200) 10/30/19 06:00 Total LDL Cholesterol 62 mg/dL (5-100) 10/30/19 06:00 HDL Cholesterol 48 mg/dL (40-60) 10/30/19 06:00 Vitamin B12 464 pg/ml (193-986) 10/29/19 07:50 TSH 1.56 uIU/ml (0.358-3.74) 10/29/19 07:50 Urine Color Yellow 10/28/19 02:35 Urine Appearance Clear 10/28/19 02:35 Urine pH 5.5 (5.0-8.0) 10/28/19 02:35 Ur Specific [place] 1.023 (1.010-1.035) 10/28/19 02:35 Urine Protein 2+ (NEGATIVE) H 10/28/19 02:35 Urine Glucose (UA) Negative (NEGATIVE) 10/28/19 02:35 Urine Ketones Trace (NEGATIVE) H 10/28/19 02:35 Urine Blood Negative (NEGATIVE) 10/28/19 02:35 Urine Nitrite Negative (NEGATIVE) 10/28/19 02:35 Urine Bilirubin Negative (NEGATIVE) 10/28/19 02:35 Urine Urobilinogen 0.2 mg/dL (0.2-1.0) 10/28/19 02:35 Ur Leukocyte Esterase Negative (NEGATIVE) 10/28/19 02:35 Urine WBC (Auto) 1 /hpf (0-5) 10/28/19 02:35 Urine RBC (Auto) 7 /hpf (0-4) 10/28/19 02:35 Urine Casts (Auto) 2 /lpf (0-8) 10/28/19 02:35 U Epithel Cells (Auto) 0.5 /HPF (0-5/HPF) 10/28/19 02:35 Urine Bacteria (Auto) 0.8 /hpf (NEGATIVE) 10/28/19 02:35 Influenza A (Rapid) Negative (Negative) 10/29/19 00:35 Influenza B (Rapid) Negative (Negative) 10/29/19 00:35 Blood Type O POSITIVE 10/28/19 22:14 Antibody Screen Negative 10/28/19 22:14 Microbiology 10/29/19 02:35 Urine - Urine - Catheterized Urine Culture - Final NO GROWTH OBTAINED 10/28/19 23:44 Blood - Peripheral Venous Blood Culture - Preliminary NO GROWTH OBTAINED AFTER 24 HOURS, INCUBATION TO CONTINUE FOR 4 DAYS. 10/28/19 23:44 Blood - Peripheral Venous Blood Culture - Preliminary NO GROWTH OBTAINED AFTER 24 HOURS, INCUBATION TO CONTINUE FOR 4 DAYS. Active Medications Acetaminophen (Tylenol -) 650 mg PO Q6H PRN PRN Reason: PAIN LEVEL 6-10 Aspirin (Ecotrin -) 81 mg PO DAILY [facility] Last Admin: 10/30/19 09:45 Dose: 81 mg Atorvastatin Calcium (Lipitor -) 40 mg PO HS [facility] Last Admin: 10/29/19 21:58 Dose: Not Given Carvedilol (Coreg -) 3.125 mg PO BID [facility] Last Admin: 10/30/19 09:45 Dose: 3.125 mg Ceftriaxone Sodium 2 gm/ (Dextrose) 100 mls @ 200 mls/hr IVPB DAILY [facility]; Protocol Last Admin: 10/30/19 09:45 Dose: 200 mls/hr Insulin Aspart (Novolog Vial Sliding Scale -) 1 vial SQ ACHS [facility]; Protocol Last Admin: 10/30/19 06:00 Dose: Not Given Insulin Detemir (Levemir Vial) 14 units SQ HS [facility] Last Admin: 10/29/19 21:58 Dose: Not Given Losartan Potassium (Cozaar -) 50 mg PO BID [facility] Last Admin: 10/30/19 09:45 Dose: 50 mg Non-Formulary Medication (Nateglinide) 120 mg PO TID [facility] ASSESSMENT/PLAN: 78 y/o M with PMHx IDDM, HTN, CAD ([place] 1993, no stents), HLD, hx smoking (120 pack-year, quit 3mo ago), and b/l leg weakness (x1yr, unknown cause, walks with walker) admitted for b/l leg weakness, word finding difficulty, and amnesia, with associated urinary incontinence. #Worsening b/l leg weakness - Associated with amnesia, urine incontinence and word difficulty concerning for TIA/CVA - Brain MRI unrevealing of ischemic event; Central spinal canal stenosis noted on Thoracic and Lumbar spine CT - Carotid U/S without hemodynamically significant stenosis, Echo reveals EF 60% with trace to mild AR - myopathy workup - ASA, statin - neurochecks Q2h, seizure/fall precautions - Neurology consulted, appreciate recs, for outpatient EMG #Fever - Previously in the setting of waxing and waning mental status; Mental status has improved today - Unclear etiology with no clear source of infection identified - TMax 100.9 - Follow cultures - Continue Ceftriaxone (ABx course started on 10/29) - ID consulted, Appreciate rec's #NILAY, Resolved - Renal U/S with does not reveal acute renal pathology - monitor urine output, Cr - Nephro consulted, Appreciate rec's #DM - BGM, ISS ACHS - Levemir 14u SubQ HS #HTN - Continue home medications - hold HCTZ #HLD - Statin #FEN - PO Hydration - Replete PRN - diabetic diet #PPx - DVT: Lovenox Dispo: Tele monitoring Visit type - Emergency Visit Emergency Visit: Yes ED Registration Date: 10/28/19 Care time: The patient presented to the Emergency Department on the above date and was hospitalized for further evaluation of their emergent condition. - New Patient This patient is new to me today: Yes Date on this admission: 10/30/19 - Critical Care Critical Care patient: No ATTENDING PHYSICIAN STATEMENT I saw and evaluated the patient. I reviewed the resident's note and discussed the case with the resident. I agree with the resident's findings and plan as documented. SUBJECTIVE: OBJECTIVE: ASSESSMENT AND PLAN:
--- NOTE | 2019-10-30 10:46 | PN ---
Teaching Attending Note Name of Resident: Claudia Miller ATTENDING PHYSICIAN STATEMENT I saw and evaluated the patient. I reviewed the resident's note and discussed the case with the resident. I agree with the resident's findings and plan as documented with exceptions below. SUBJECTIVE: Patient seen and examined. no complaints. Recalls events last night when did not want anyone in his room. OBJECTIVE: Vital Signs Period Temp Pulse Resp BP Sys/Bailey Pulse Ox Last 24 Hr 98.0 F-100.9 F 77-92 18-20 121-162/56-109 93-97 Intake & Output 10/27/19 10/28/19 10/29/19 10/30/19 23:59 23:59 23:59 23:59 Intake Total 10 Output Total 1125 Balance -1125 10 Weight 180 lb 183 lb General: lying in bed, no acute distress Neck: soft, supple HEENT: 1 mm, reactive to light, EOMI, no photophobia Chest; CTAB, no rales or wheezing Abdomen:Soft, NT Extremities: no edema Neuro: AA, oriented to self, place, knows is Edith, power 5/5, speech improved, currently not co-operative with sensory exam (wants to sleep) Home Medications Medication Instructions Recorded Aspirin Coated [Ecotrin -] 81 mg PO DAILY 07/28/12 Atorvastatin Ca [Lipitor] 40 mg PO HS 07/28/12 Hydrochlorothiazide [Hctz] 12.5 mg PO DAILY 07/28/12 Losartan Potassium 50 mg PO BID 07/28/12 metFORMIN XR [Glucophage Xr -] 500 mg PO BID 07/28/12 Carvedilol [Coreg -] 3.125 mg PO BID 10/29/19 Insulin (Levemir) [Levemir Vial] 14 unit SQ 10/29/19 Nateglinide [Starlix (Nf)] 120 mg PO TID 10/29/19 Active Medications Acetaminophen (Tylenol -) 650 mg PO Q6H PRN PRN Reason: PAIN LEVEL 6-10 Aspirin (Ecotrin -) 81 mg PO DAILY [facility] Last Admin: 10/30/19 09:45 Dose: 81 mg Atorvastatin Calcium (Lipitor -) 40 mg PO HS [facility] Last Admin: 10/29/19 21:58 Dose: Not Given Carvedilol (Coreg -) 3.125 mg PO BID [facility] Last Admin: 10/30/19 09:45 Dose: 3.125 mg Ceftriaxone Sodium 2 gm/ (Dextrose) 100 mls @ 200 mls/hr IVPB DAILY [facility]; Protocol Last Admin: 10/30/19 09:45 Dose: 200 mls/hr Insulin Aspart (Novolog Vial Sliding Scale -) 1 vial SQ ACHS [facility]; Protocol Last Admin: 10/30/19 06:00 Dose: Not Given Insulin Detemir (Levemir Vial) 14 units SQ HS [facility] Last Admin: 10/29/19 21:58 Dose: Not Given Losartan Potassium (Cozaar -) 50 mg PO BID [facility] Last Admin: 10/30/19 09:45 Dose: 50 mg Non-Formulary Medication (Nateglinide) 120 mg PO TID [facility] Laboratory Results - last 24 hr 10/28/19 10/29/19 10/29/19 16:25 07:00 07:50 ESR POC Glucometer Lactic Acid 2.9 H* C-Reactive Protein 0.4 H Triglycerides Cholesterol Total LDL Cholesterol HDL Cholesterol Vitamin B12 464 Blood Type O POSITIVE 10/29/19 10/29/19 10/29/19 16:25 16:49 21:49 ESR POC Glucometer 144 135 Lactic Acid 2.2 H* C-Reactive Protein Triglycerides Cholesterol Total LDL Cholesterol HDL Cholesterol Vitamin B12 Blood Type 10/30/19 10/30/19 06:00 06:00 ESR 20 POC Glucometer Lactic Acid C-Reactive Protein Triglycerides 130 Cholesterol 123 Total LDL Cholesterol 62 HDL Cholesterol 48 Vitamin B12 Blood Type Microbiology 10/29/19 02:35 Urine - Urine - Catheterized Urine Culture - Final NO GROWTH OBTAINED 10/28/19 23:44 Blood - Peripheral Venous Blood Culture - Preliminary NO GROWTH OBTAINED AFTER 24 HOURS, INCUBATION TO CONTINUE FOR 4 DAYS. 10/28/19 23:44 Blood - Peripheral Venous Blood Culture - Preliminary NO GROWTH OBTAINED AFTER 24 HOURS, INCUBATION TO CONTINUE FOR 4 DAYS. MRI brain results noted ASSESSMENT AND PLAN: 78 yom with PMhx of IDDM, HTN, CAD ([place] 1993, no stents), HLD, hx smoking (120 pack-year, quit 3mo ago), and b/l leg weakness (x1yr, unknown cause, walks with walker) admitted with leg weakness, altered speech, ?Amnesia and fever 102 -constellation of leg weakness/Altered speech/?Amnesia -Fever , ?URI -NILAY, suspect dehydration related. -IDDM -HTN -CAD s/p [place] 1993, no stents -HLD -Chronic LE weakness Plan: Symptoms improved, mental status close to baseline per . MRI brain neg for concerns. ASA/statin, neuro checks. Neurology/ID input noted. Current clinical presentation not consistent with meningits/encephalitis like picture fevers improved, follow up cultures. Ceftriaxone day 2. Dc/ IVF. Monitor renal function. Hypertension. Continue losartan, monitor off fluids and additional meds based on readings. Levemir/ISS Speech/swallow input noted. PO as tolerated. CT spine noted. PT eval, additional spine imaging based on clinical course. DVTPPx start lovenox
[2019-10-30 12:14] LABS: BASO % 0.4 % (0-2.0); EOS % 0.3 % (0-4.5); HEMATOCRIT 37.6 % (35.4-49); HEMOGLOBIN 12.7 GM/dL (11.7-16.9); LYMPH % 13.7 % (8-40); MCHC 33.7 g/dl (32.0-35.9); MEAN CELL VOLUME 94.9 fl (80-96); MEAN PLT VOLUME 8.4 fl (7.5-11.1); MONO % 16.2 % (3.8-10.2); NEUT % 69.4 % (42.8-82.8); PLATELET COUNT 174 K/MM3 (134-434); RBC 3.96 M/mm3 (4.00-5.60); WHITE BLOOD COUNT 4.4 K/mm3 (4.0-10.0)
[2019-10-30 12:27] LABS: BLOOD UREA NITROGEN 20.2 mg/dL (7-18); CALCIUM 8.3 mg/dL (8.5-10.1); CREATININE 1.1 mg/dL (0.55-1.3); POTASSIUM 3.4 mmol/L (3.5-5.1)
--- NOTE | 2019-10-30 13:50 | PN ---
Progress Note, Physician History of Present Illness: Pt seen and examined at bedside. He is awake and alert. His speech is improved. He is tolerating diet. - Current Medication List Current Medications: Active Medications Acetaminophen (Tylenol -) 650 mg PO Q6H PRN PRN Reason: PAIN LEVEL 6-10 Aspirin (Ecotrin -) 81 mg PO DAILY [facility] Last Admin: 10/30/19 09:45 Dose: 81 mg Atorvastatin Calcium (Lipitor -) 40 mg PO HS [facility] Last Admin: 10/29/19 21:58 Dose: Not Given Carvedilol (Coreg -) 3.125 mg PO BID [facility] Last Admin: 10/30/19 09:45 Dose: 3.125 mg Enoxaparin Sodium (Lovenox -) 40 mg SQ DAILY [facility] Ceftriaxone Sodium 2 gm/ (Dextrose) 100 mls @ 200 mls/hr IVPB DAILY [facility]; Protocol Last Admin: 10/30/19 09:45 Dose: 200 mls/hr Insulin Aspart (Novolog Vial Sliding Scale -) 1 vial SQ ACHS [facility]; Protocol Last Admin: 10/30/19 11:49 Dose: Not Given Insulin Detemir (Levemir Vial) 14 units SQ HS [facility] Last Admin: 10/29/19 21:58 Dose: Not Given Losartan Potassium (Cozaar -) 50 mg PO BID [facility] Last Admin: 10/30/19 09:45 Dose: 50 mg Non-Formulary Medication (Nateglinide) 120 mg PO TID [facility] Potassium Chloride (K-Dur -) 40 meq PO ONCE ONE Stop: 10/30/19 14:01 - Objective Vital Signs: Vital Signs Temperature 97.5 F L 10/30/19 09:00 Pulse Rate 88 10/30/19 09:00 Respiratory Rate 20 10/30/19 09:00 Blood Pressure 150/74 10/30/19 09:00 O2 Sat by Pulse Oximetry (%) 93 L 10/29/19 21:00 Constitutional: Yes: Calm Eyes: Yes: Conjunctiva Clear HENT: Yes: Atraumatic Cardiovascular: Yes: S1, S2 Respiratory: Yes: CTA Bilaterally Gastrointestinal: Yes: Soft Genitourinary: Yes: WNL Musculoskeletal: Yes: Muscle Weakness Edema: No Neurological: Yes: Oriented Psychiatric: Yes: Oriented Labs: CBC, BMP 10/30/19 11:30 10/30/19 11:30 INR, PTT INR 1.02 (0.83-1.09) 10/28/19 22:14 Problem List - Problems (1) NILAY (acute kidney injury) Code(s): N17.9 - ACUTE KIDNEY FAILURE, UNSPECIFIED (2) Bilateral leg weakness Code(s): R29.898 - OTH SYMPTOMS AND SIGNS INVOLVING THE MUSCULOSKELETAL SYSTEM (3) Word finding difficulty Code(s): R47.89 - OTHER SPEECH DISTURBANCES Assessment/Plan Current Medications Generic Name Dose Route Start Last Admin Trade Name Freq PRN Reason Stop Dose Admin Acetaminophen 650 mg 10/29/19 04:53 Tylenol - PO Q6H PRN PAIN LEVEL 6-10 Aspirin 81 mg 10/30/19 10:00 10/30/19 09:45 Ecotrin - PO 81 mg DAILY [facility] Administration Atorvastatin Calcium 40 mg 10/29/19 22:00 10/29/19 21:58 Lipitor - PO Not Given HS [facility] Carvedilol 3.125 mg 10/29/19 22:00 10/30/19 09:45 Coreg - PO 3.125 mg BID [facility] Administration Enoxaparin Sodium 40 mg 10/31/19 10:00 Lovenox - SQ DAILY [facility] Ceftriaxone Sodium 2 gm/ 100 mls @ 200 mls/hr 10/30/19 10:00 10/30/19 09:45 Dextrose IVPB 200 mls/hr DAILY [facility] Administration Protocol Insulin Aspart 1 vial 10/29/19 07:00 10/30/19 11:49 Novolog Vial Sliding Scale - SQ Not Given ACHS [facility] Protocol Insulin Detemir 14 units 10/29/19 22:00 10/29/19 21:58 Levemir Vial SQ Not Given HS [facility] Losartan Potassium 50 mg 10/29/19 22:00 10/30/19 09:45 Cozaar - PO 50 mg BID [facility] Administration Non-Formulary Medication 120 mg 10/29/19 22:00 Nateglinide PO TID [facility] Potassium Chloride 40 meq 10/30/19 14:00 K-Dur - PO 10/30/19 14:01 ONCE ONE Impression 1. NILAY 2. change in mental status 3. weakness 4. dm 5. htn 6. CAD 7. AAA 8. hypokalemia Plan - replace potassium - check mag - renal function is improved - likely in part pre-renal disease - repeat labs in am
[2019-10-30] MEDS ORDERED: POTASSIUM CHLORIDE TABS 20 MEQ TABLET.ER (FP) PO ONE (14:00)
--- NOTE | 2019-10-30 17:06 | PN ---
Progress Note, Physician History of Present Illness: events noted chart review at seen on telemetry Alert awake oriented feels better than yesterday still with the bilateral leg weakness mRI of the brain reviewed with no evidence of acute CVA - Current Medication List Current Medications: Active Medications Acetaminophen (Tylenol -) 650 mg PO Q6H PRN PRN Reason: PAIN LEVEL 6-10 Aspirin (Ecotrin -) 81 mg PO DAILY [facility] Last Admin: 10/30/19 09:45 Dose: 81 mg Atorvastatin Calcium (Lipitor -) 40 mg PO HS [facility] Last Admin: 10/29/19 21:58 Dose: Not Given Carvedilol (Coreg -) 3.125 mg PO BID [facility] Last Admin: 10/30/19 09:45 Dose: 3.125 mg Enoxaparin Sodium (Lovenox -) 40 mg SQ DAILY [facility] Ceftriaxone Sodium 2 gm/ (Dextrose) 100 mls @ 200 mls/hr IVPB DAILY [facility]; Protocol Last Admin: 10/30/19 09:45 Dose: 200 mls/hr Insulin Aspart (Novolog Vial Sliding Scale -) 1 vial SQ ACHS [facility]; Protocol Last Admin: 10/30/19 11:49 Dose: Not Given Insulin Detemir (Levemir Vial) 14 units SQ HS [facility] Last Admin: 10/29/19 21:58 Dose: Not Given Losartan Potassium (Cozaar -) 50 mg PO BID [facility] Last Admin: 10/30/19 09:45 Dose: 50 mg Non-Formulary Medication (Nateglinide) 120 mg PO TID [facility] - Objective Vital Signs: Vital Signs Temperature 97.8 F 10/30/19 13:00 Pulse Rate 86 10/30/19 13:00 Respiratory Rate 18 10/30/19 13:00 Blood Pressure 140/67 10/30/19 13:00 O2 Sat by Pulse Oximetry (%) 92 L 10/30/19 09:00 Constitutional: Yes: Well Nourished Eyes: Yes: WNL Neurological: Yes: Alert, Oriented, Babinski negative ...Motor Strength: WNL Labs: CBC, BMP 10/30/19 11:30 10/30/19 11:30 INR, PTT INR 1.02 (0.83-1.09) 10/28/19 22:14 Problem List - Problems (1) Bilateral leg weakness Assessment/Plan: spinal stenosis lumbar radiculopathy No evidence of meningitis Follow up with ID specialist follow-up blood work for the myopathy Follow-up with the EMG nerve conduction testing fall precautions Code(s): R29.898 - [facility] SYMPTOMS AND SIGNS INVOLVING THE MUSCULOSKELETAL SYSTEM
[2019-10-30] MEDS: ACETAMINOPHEN 325 MG TABLET (FP) PO PRN (18:03)
[2019-10-30] MEDS: ATORVASTATIN CA 40 MG TABLET (FP) PO SCH (21:21)
[2019-10-30] MEDS: INSULIN (LEVEMIR) 100 UNITS/ML UNITS SQ SCH ×2 (22:25→22:29)
[2019-10-31 06:42] LABS: HEMATOCRIT 35.5 % (35.4-49); HEMOGLOBIN 12.2 GM/dL (11.7-16.9); MCH 32.1 pg (25.7-33.7); MCHC 34.5 g/dl (32.0-35.9); MEAN PLT VOLUME 8.2 fl (7.5-11.1); PLATELET COUNT 169 K/MM3 (134-434); RBC 3.82 M/mm3 (4.00-5.60); RDW 13.9 % (11.9-15.9); WHITE BLOOD COUNT 3.9 K/mm3 (4.0-10.0)
[2019-10-31] MEDS: INSULIN SLIDING SCALE (NOVOLOG) 1 VIAL SQ SCH ×4 (06:46→22:37)
[2019-10-31 07:11] LABS: ALBUMIN 3.1 g/dl (3.4-5.0); BILIRUBIN,TOTAL 0.6 mg/dL (0.2-1); BLOOD UREA NITROGEN 22.2 mg/dL (7-18); CREATININE 1.1 mg/dL (0.55-1.3); POTASSIUM 3.9 mmol/L (3.5-5.1); TOT PROT 6.2 g/dl (6.4-8.2)
[2019-10-31] MEDS ORDERED: DEXTROSE 5%-WATER 100 ML IVPB ONE (10:07)
[2019-10-31] MEDS: CARVEDILOL 3.125 MG TABLET (FP) PO SCH ×2 (10:11→22:30)
[2019-10-31] MEDS: CEFTRIAXONE 2 GM in DEXTROSE 5%-WATER 100 ML IVPB SCH (10:11)
[2019-10-31] MEDS: ENOXAPARIN NA (PORCINE) 40 MG/0.4 ML DISP.SYRIN SQ SCH (10:11)
[2019-10-31] MEDS: LOSARTAN POTASSIUM 50 MG TABLET (FP) PO SCH ×2 (10:11→22:30)
[2019-10-31] MEDS: ASPIRIN COATED 81 MG TABLET.EC PO SCH (10:11)
--- NOTE | 2019-10-31 11:49 | PN ---
Teaching Attending Note Name of Resident: Matt Diana ATTENDING PHYSICIAN STATEMENT I saw and evaluated the patient. I reviewed the resident's note and discussed the case with the resident. I agree with the resident's findings and plan as documented with exceptions below. SUBJECTIVE: Patient seen and examined. Feels better, Ox3. still with leg weakness. reports cough for a week but no new complaints. OBJECTIVE: Vital Signs Period Temp Pulse Resp BP Sys/Bailey Pulse Ox Last 24 Hr 97.8 F-100.5 F 75-100 18-18 124-161/60-74 94 Intake & Output 10/28/19 10/29/19 10/30/19 10/31/19 23:59 23:59 23:59 23:59 Intake Total 110 100 Output Total 1125 Balance -1125 110 100 Weight 180 lb 183 lb General: sitting in bed, no acute distress chest: no rales or wheezing Abdomen: soft, NT Extremities: no edema Neuro: proximal LE muscle weakness, power at hip 2-3/5, otherwise 5/5, AAOx3, unchanged exam from yesterday Musculoskeletal: no spinal tenderness Home Medications Medication Instructions Recorded Aspirin Coated [Ecotrin -] 81 mg PO DAILY 07/28/12 Atorvastatin Ca [Lipitor] 40 mg PO HS 07/28/12 Hydrochlorothiazide [Hctz] 12.5 mg PO DAILY 07/28/12 Losartan Potassium 50 mg PO BID 07/28/12 metFORMIN XR [Glucophage Xr -] 500 mg PO BID 07/28/12 Carvedilol [Coreg -] 3.125 mg PO BID 10/29/19 Insulin (Levemir) [Levemir Vial] 14 unit SQ 10/29/19 Nateglinide [Starlix (Nf)] 120 mg PO TID 10/29/19 Active Medications Acetaminophen (Tylenol -) 650 mg PO Q6H PRN PRN Reason: PAIN LEVEL 6-10 Last Admin: 10/30/19 18:03 Dose: 650 mg Aspirin (Ecotrin -) 81 mg PO DAILY [facility] Last Admin: 10/31/19 10:11 Dose: 81 mg Atorvastatin Calcium (Lipitor -) 40 mg PO HS [facility] Last Admin: 10/30/19 21:21 Dose: 40 mg Carvedilol (Coreg -) 3.125 mg PO BID [facility] Last Admin: 10/31/19 10:11 Dose: 3.125 mg Enoxaparin Sodium (Lovenox -) 40 mg SQ DAILY [facility] Last Admin: 10/31/19 10:11 Dose: 40 mg Ceftriaxone Sodium 2 gm/ (Dextrose) 100 mls @ 200 mls/hr IVPB DAILY [facility]; Protocol Last Admin: 10/31/19 10:11 Dose: 200 mls/hr Insulin Aspart (Novolog Vial Sliding Scale -) 1 vial SQ ACHS [facility]; Protocol Last Admin: 10/31/19 06:46 Dose: Not Given Insulin Detemir (Levemir Vial) 14 units SQ HS [facility] Last Admin: 10/30/19 22:29 Dose: Not Given Losartan Potassium (Cozaar -) 50 mg PO BID [facility] Last Admin: 10/31/19 10:11 Dose: 50 mg Non-Formulary Medication (Nateglinide) 120 mg PO TID [facility] Laboratory Results - last 24 hr 10/29/19 10/30/19 10/30/19 16:25 11:30 11:30 WBC 4.4 RBC 3.96 L Hgb 12.7 Hct 37.6 MCV 94.9 MCH 32.0 MCHC 33.7 RDW 14.0 Plt Count 174 MPV 8.4 Absolute Neuts (auto) 3.1 Neutrophils % 69.4 Lymphocytes % 13.7 D Monocytes % 16.2 H Eosinophils % 0.3 Basophils % 0.4 Nucleated RBC % 0 Sodium 138 Potassium 3.4 L Chloride 104 Carbon Dioxide 26 Anion Gap 8 BUN 20.2 H Creatinine 1.1 Est GFR (CKD-EPI)AfAm 74.65 Est GFR (CKD-EPI)NonAf 64.41 POC Glucometer Random Glucose 141 H Calcium 8.3 L Magnesium Total Bilirubin AST ALT Alkaline Phosphatase Total Protein Albumin Homocysteine 9.2 10/30/19 10/30/19 10/31/19 16:33 22:22 06:00 WBC RBC Hgb Hct MCV MCH MCHC RDW Plt Count MPV Absolute Neuts (auto) Neutrophils % Lymphocytes % Monocytes % Eosinophils % Basophils % Nucleated RBC % Sodium 140 Potassium 3.9 Chloride 107 Carbon Dioxide 26 Anion Gap 7 L BUN 22.2 H Creatinine 1.1 Est GFR (CKD-EPI)AfAm 74.65 Est GFR (CKD-EPI)NonAf 64.41 POC Glucometer 185 142 Random Glucose 165 H Calcium 9.0 Magnesium 2.0 Total Bilirubin 0.6 AST 56 H ALT 29 Alkaline Phosphatase 73 Total Protein 6.2 L Albumin 3.1 L Homocysteine 10/31/19 10/31/19 06:00 11:32 WBC 3.9 L RBC 3.82 L Hgb 12.2 Hct 35.5 MCV 93.0 MCH 32.1 MCHC 34.5 RDW 13.9 Plt Count 169 MPV 8.2 Absolute Neuts (auto) Neutrophils % Lymphocytes % Monocytes % Eosinophils % Basophils % Nucleated RBC % Sodium Potassium Chloride Carbon Dioxide Anion Gap BUN Creatinine Est GFR (CKD-EPI)AfAm Est GFR (CKD-EPI)NonAf POC Glucometer 178 Random Glucose Calcium Magnesium Total Bilirubin AST ALT Alkaline Phosphatase Total Protein Albumin Homocysteine Microbiology 10/28/19 23:44 Blood - Peripheral Venous Blood Culture - Preliminary NO GROWTH OBTAINED AFTER 48 HOURS, INCUBATION TO CONTINUE FOR 3 DAYS. 10/28/19 23:44 Blood - Peripheral Venous Blood Culture - Preliminary NO GROWTH OBTAINED AFTER 48 HOURS, INCUBATION TO CONTINUE FOR 3 DAYS. 10/29/19 02:35 Urine - Urine - Catheterized Urine Culture - Final NO GROWTH OBTAINED MRI brain results reviewed 2D echo/carotid duplex results reviewed ASSESSMENT AND PLAN: 78 yom with PMhx of IDDM, HTN, CAD (1993, no stents), HLD, hx smoking (120 pack-year, quit 3mo ago), and b/l leg weakness (x1yr, unknown cause, walks with walker) admitted with leg weakness, altered speech, ?Amnesia and fever 102 -AMS, suspect toxic metabolic encephalopathy from dehydration +/-URI in the setting of progressive cognitive decline -Fever , suspect URI vs bronchitis -NILAY, suspect dehydration related. -Lower Extremity Weakness, ?from spinal stenosis, r/o myopathy -IDDM -HTN -CAD s/p 1993, no stents -HLD -Chronic LE weakness Plan: Mental status at baseline as confirmed with . Fevers improved. Coarse cough for 1 week WBC normal ID input noted. Emperic ceftriaxone. CT chest neg for concerns. Persistent chronic Lower Extremity weakness (reported was unable to get him up from sitting position prior to admission) Neurology input noted. Follow up Aldolase/Myoglobin/SPEP. Check MRI L-spine. PT eval. MRI brain neg for concerns. ASA/statin, neuro checks. Off IVF. Renal function stable. Continue losartan/coreg. Levemir/ISS Speech/swallow input noted. PO as tolerated. CT spine noted. DVTPPX lovenox PT eval, plan for disposition in 24 hours pending above w/u. Will need outpatient neurology follow up. Plan discussed with patient and at bedside in detail,all questions answered.
--- NOTE | 2019-10-31 12:35 | PN ---
Physical Exam: SUBJECTIVE: Patient seen and examined at the bedside. Patient was eager to go home and get out of his bed. Endorses a cough. Denied any acute complaints of cp , sob, abd pain, n/v/c/d, headaches, dizziness, lightheadedness, visual disturbances, fever, chills, dysuria, hematuria. OBJECTIVE: Vital Signs Period Temp Pulse Resp BP Sys/Bailey Pulse Ox Last 24 Hr 97.8 F-100.5 F 75-100 18-18 124-161/60-74 94 GENERAL: The patient is awake, alert, and fully oriented, in no acute distress. HEAD: Normal with no signs of trauma. EYES: PERRL, extraocular movements intact, sclera anicteric, conjunctiva clear. ENT: Oropharynx clear without exudates, moist mucous membranes. LUNGS: Breath sounds equal, with mild crackles in the bilateral bases. No auscultated wheezes. No accessory muscle use. HEART: Regular rate and rhythm, S1, S2 without murmur, rub. ABDOMEN: Soft, nontender, nondistended, normoactive bowel sounds, no guarding, no rebound, no masses. EXTREMITIES: 2+ pulses, warm, well-perfused, no edema. NEUROLOGICAL: Cranial nerves II through XII grossly intact. 5/5 strength bilaterally in the upper extremities. 4/5 muscle strength bilaterally in the LE proximally. Sensation is intact to gross touch throughout. PSYCH: Normal mood, normal affect. SKIN: Warm, dry, normal turgor, no rashes or lesions noted. Laboratory Results - last 24 hr 10/29/19 10/30/19 10/30/19 16:25 16:33 22:22 WBC RBC Hgb Hct MCV MCH MCHC RDW Plt Count MPV Sodium Potassium Chloride Carbon Dioxide Anion Gap BUN Creatinine Est GFR (CKD-EPI)AfAm Est GFR (CKD-EPI)NonAf POC Glucometer 185 142 Random Glucose Calcium Magnesium Total Bilirubin AST ALT Alkaline Phosphatase Total Protein Albumin Homocysteine 9.2 10/31/19 10/31/19 10/31/19 06:00 06:00 11:32 WBC 3.9 L RBC 3.82 L Hgb 12.2 Hct 35.5 MCV 93.0 MCH 32.1 MCHC 34.5 RDW 13.9 Plt Count 169 MPV 8.2 Sodium 140 Potassium 3.9 Chloride 107 Carbon Dioxide 26 Anion Gap 7 L BUN 22.2 H Creatinine 1.1 Est GFR (CKD-EPI)AfAm 74.65 Est GFR (CKD-EPI)NonAf 64.41 POC Glucometer 178 Random Glucose 165 H Calcium 9.0 Magnesium 2.0 Total Bilirubin 0.6 AST 56 H ALT 29 Alkaline Phosphatase 73 Total Protein 6.2 L Albumin 3.1 L Homocysteine Active Medications Generic Name Dose Route Start Last Admin Trade Name Freq PRN Reason Stop Dose Admin Acetaminophen 650 mg 10/29/19 04:53 10/30/19 18:03 Tylenol - PO 650 mg Q6H PRN Administration PAIN LEVEL 6-10 Aspirin 81 mg 10/30/19 10:00 10/31/19 10:11 Ecotrin - PO 81 mg DAILY [facility] Administration Atorvastatin Calcium 40 mg 10/29/19 22:00 10/30/19 21:21 Lipitor - PO 40 mg HS [facility] Administration Carvedilol 3.125 mg 10/29/19 22:00 10/31/19 10:11 Coreg - PO 3.125 mg BID [facility] Administration Enoxaparin Sodium 40 mg 10/31/19 10:00 10/31/19 10:11 Lovenox - SQ 40 mg DAILY [facility] Administration Ceftriaxone Sodium 2 gm/ 100 mls @ 200 mls/hr 10/30/19 10:00 10/31/19 10:11 Dextrose IVPB 200 mls/hr DAILY [facility] Administration Protocol Insulin Aspart 1 vial 10/29/19 07:00 10/31/19 06:46 Novolog Vial Sliding Scale - SQ Not Given ACHS [facility] Protocol Insulin Detemir 14 units 10/29/19 22:00 10/30/19 22:29 Levemir Vial SQ Not Given HS [facility] Losartan Potassium 50 mg 10/29/19 22:00 10/31/19 10:11 Cozaar - PO 50 mg BID [facility] Administration Non-Formulary Medication 120 mg 10/29/19 22:00 Nateglinide PO TID [facility] ASSESSMENT/PLAN: Cliff Temple is a 78 year old male with a past medical history of IDDM, HTN, CAD ([place] 1993, no stents), HLD, hx smoking (120 pack-year, quit 3mo ago), and b/l leg weakness (x1yr, unknown cause, walks with walker) admitted for b/l leg weakness, word finding difficulty, and amnesia, with associated urinary incontinence. Worsening b/l leg weakness - head CT no acute pathology, thoracic and lumbar Chronic advanced intervertebral osteochondrosis is noted from the T6-7 down through the T11-12 levels, and at the L2-3 through the L4-5 levels - Prominent disc osteophyte complexes at T6-7, T7-8 and T8-9, which are producing moderate central spinal canal stenoses, and posterior displacement of the thecal sac, but without clear evidence of spinal cord compression. - Smaller disc osteophyte complexes are noted at T11-12 and L3-4 producing mild central spinal canal stenoses. - carotid U/S showing mild atherosclerotic disease with no hemodynamically significant stenosis - echo showing mild concentric hypertrophy, EF 60%, trace to mild aortic regurgitation - Neurology consulted, recs appreciated, hold off on spinal tap due to low suspicion of meningitis - for outpatient EMG - myopathy workup - speech and swallow eval noting patient can be resumed on regular diet - neurochecks Q2h - brain MRI noting mild periventriuclar and subcortical chronic microvascular ischemic changes, paranasal sinus disease, no noted acute infarct - continue statin and aspirin - f/u lumbar spine MRI - Physical therapy Fever - neuro status has resolved, currently patient is aOx3 and noting patient at baseline - no clear source of infection identified outside of brain - continues to have fevers, likely source - Urine and blood cultures - no evidence of PNA on CT - ID consulted, ceftriaxone - neuro noting to hold off on spinal tap due to low suspicion of meningitis NILAY - improving - renal U/S with no evidence of hydronephrosis or acute renal pathology - hydration at 75 cc/hr - monitor urine output - Dr Paulson consulted, recs appreciated - avoid nephrotoxic agents AAA on CT - 4.[address] - abdominal US noting a 3.2cm distal AAA DM - BGM - ISS - A1c 6.0 - levemir 14 units subq qhs HTN - restart home medications - hold HCTZ HLD - continue atorvastatin 40mg FEN - no standing fluids, encourage PO intake - continue to monitor electrolytes and replete as necessary - diabetic diet DVT - lovenox 40mg subq daily Dispo - continue to monitor on telemetry Visit type - Emergency Visit Emergency Visit: Yes ED Registration Date: 10/28/19 Care time: The patient presented to the Emergency Department on the above date and was hospitalized for further evaluation of their emergent condition. - New Patient This patient is new to me today: No - Critical Care Critical Care patient: No
--- NOTE | 2019-10-31 16:31 | PN ---
Progress Note, Physician History of Present Illness: Pt seen and examined at bedside. He is awake and appears comfortable. - Current Medication List Current Medications: Active Medications Acetaminophen (Tylenol -) 650 mg PO Q6H PRN PRN Reason: PAIN LEVEL 6-10 Last Admin: 10/30/19 18:03 Dose: 650 mg Aspirin (Ecotrin -) 81 mg PO DAILY [facility] Last Admin: 10/31/19 10:11 Dose: 81 mg Atorvastatin Calcium (Lipitor -) 40 mg PO HS [facility] Last Admin: 10/30/19 21:21 Dose: 40 mg Carvedilol (Coreg -) 3.125 mg PO BID [facility] Last Admin: 10/31/19 10:11 Dose: 3.125 mg Enoxaparin Sodium (Lovenox -) 40 mg SQ DAILY [facility] Last Admin: 10/31/19 10:11 Dose: 40 mg Ceftriaxone Sodium 2 gm/ (Dextrose) 100 mls @ 200 mls/hr IVPB DAILY [facility]; Protocol Last Admin: 10/31/19 10:11 Dose: 200 mls/hr Insulin Aspart (Novolog Vial Sliding Scale -) 1 vial SQ ACHS [facility]; Protocol Last Admin: 10/31/19 12:00 Dose: 2 units Insulin Detemir (Levemir Vial) 14 units SQ HS [facility] Last Admin: 10/30/19 22:29 Dose: Not Given Losartan Potassium (Cozaar -) 50 mg PO BID [facility] Last Admin: 10/31/19 10:11 Dose: 50 mg Non-Formulary Medication (Nateglinide) 120 mg PO TID [facility] - Objective Vital Signs: Vital Signs Temperature 98.7 F 10/31/19 14:35 Pulse Rate 79 10/31/19 14:35 Respiratory Rate 22 H 10/31/19 14:35 Blood Pressure 131/84 10/31/19 14:35 O2 Sat by Pulse Oximetry (%) 94 L 10/30/19 20:38 Constitutional: Yes: Calm Eyes: Yes: Conjunctiva Clear HENT: Yes: Atraumatic Neck: Yes: Supple Cardiovascular: Yes: S1, S2 Respiratory: Yes: CTA Bilaterally Genitourinary: Yes: WNL Musculoskeletal: Yes: WNL Edema: No Integumentary: Yes: WNL Neurological: Yes: Confusion Labs: CBC, BMP 10/31/19 06:00 10/31/19 06:00 INR, PTT INR 1.02 (0.83-1.09) 10/28/19 22:14 Problem List - Problems (1) NILAY (acute kidney injury) Code(s): N17.9 - ACUTE KIDNEY FAILURE, UNSPECIFIED (2) Bilateral leg weakness Code(s): R29.898 - OTH SYMPTOMS AND SIGNS INVOLVING THE MUSCULOSKELETAL SYSTEM (3) Word finding difficulty Code(s): R47.89 - OTHER SPEECH DISTURBANCES Assessment/Plan Current Medications Generic Name Dose Route Start Last Admin Trade Name Freq PRN Reason Stop Dose Admin Acetaminophen 650 mg 10/29/19 04:53 10/30/19 18:03 Tylenol - PO 650 mg Q6H PRN Administration PAIN LEVEL 6-10 Aspirin 81 mg 10/30/19 10:00 10/31/19 10:11 Ecotrin - PO 81 mg DAILY [facility] Administration Atorvastatin Calcium 40 mg 10/29/19 22:00 10/30/19 21:21 Lipitor - PO 40 mg HS [facility] Administration Carvedilol 3.125 mg 10/29/19 22:00 10/31/19 10:11 Coreg - PO 3.125 mg BID [facility] Administration Enoxaparin Sodium 40 mg 10/31/19 10:00 10/31/19 10:11 Lovenox - SQ 40 mg DAILY [facility] Administration Ceftriaxone Sodium 2 gm/ 100 mls @ 200 mls/hr 10/30/19 10:00 10/31/19 10:11 Dextrose IVPB 200 mls/hr DAILY [facility] Administration Protocol Insulin Aspart 1 vial 10/29/19 07:00 10/31/19 12:00 Novolog Vial Sliding Scale - SQ 2 units ACHS [facility] Administration Protocol Insulin Detemir 14 units 10/29/19 22:00 10/30/19 22:29 Levemir Vial SQ Not Given HS [facility] Losartan Potassium 50 mg 10/29/19 22:00 10/31/19 10:11 Cozaar - PO 50 mg BID [facility] Administration Non-Formulary Medication 120 mg 10/29/19 22:00 Nateglinide PO TID [facility] Impression 1. NILAY 2. change in mental status 3. weakness 4. dm 5. htn 6. CAD 7. AAA 8. hypokalemia Plan - renal function stable - encourage PO intake - likely in part pre-renal disease - repeat labs in am
--- NOTE | 2019-10-31 21:31 | PN ---
Progress Note, Physician History of Present Illness: AWAKE BUT CONFUSED OFFERS NO COMPLAINTS AFEBRILE CULTURES NEGATIVE - Current Medication List Current Medications: Active Medications Acetaminophen (Tylenol -) 650 mg PO Q6H PRN PRN Reason: PAIN LEVEL 6-10 Last Admin: 10/30/19 18:03 Dose: 650 mg Aspirin (Ecotrin -) 81 mg PO DAILY [facility] Last Admin: 10/31/19 10:11 Dose: 81 mg Atorvastatin Calcium (Lipitor -) 40 mg PO HS [facility] Last Admin: 10/30/19 21:21 Dose: 40 mg Carvedilol (Coreg -) 3.125 mg PO BID [facility] Last Admin: 10/31/19 10:11 Dose: 3.125 mg Enoxaparin Sodium (Lovenox -) 40 mg SQ DAILY [facility] Last Admin: 10/31/19 10:11 Dose: 40 mg Ceftriaxone Sodium 2 gm/ (Dextrose) 100 mls @ 200 mls/hr IVPB DAILY [facility]; Protocol Last Admin: 10/31/19 10:11 Dose: 200 mls/hr Insulin Aspart (Novolog Vial Sliding Scale -) 1 vial SQ [facility]; Protocol Last Admin: 10/31/19 18:36 Dose: 2 units Insulin Detemir (Levemir Vial) 14 units SQ [facility] Last Admin: 10/30/19 22:29 Dose: Not Given Losartan Potassium (Cozaar -) 50 mg PO BID [facility] Last Admin: 10/31/19 10:11 Dose: 50 mg Non-Formulary Medication (Nateglinide) 120 mg PO TID [facility] - Objective Vital Signs: Vital Signs Temperature 99.9 F H 10/31/19 20:47 Pulse Rate 82 10/31/19 20:47 Respiratory Rate 20 10/31/19 20:47 Blood Pressure 162/86 10/31/19 20:47 O2 Sat by Pulse Oximetry (%) 96 10/31/19 09:00 Constitutional: Yes: No Distress Neck: Yes: Supple Cardiovascular: Yes: Regular Rate and Rhythm, S1, S2 Respiratory: Yes: CTA Bilaterally Gastrointestinal: Yes: Normal Bowel Sounds, Soft Labs: CBC, BMP 10/31/19 06:00 10/31/19 06:00 INR, PTT INR 1.02 (0.83-1.09) 10/28/19 22:14 Assessment/Plan ALTERED MENTAL STATUS ? ETIOLOGY MRI BRAIN NEGATIVE FOR INFARCT ?TOXIC METABOLIC LEUKOPENIA ?VIRAL SYNDROME NO CLINICAL EVIDENCE FOR MENINGITIS LE WEAKNESS LUMBAR MRI PENDING CONTINUE EMPIRIC CEFTRIAXONE
[2019-10-31] MEDS: ACETAMINOPHEN 325 MG TABLET (FP) PO PRN (22:30)
[2019-10-31] MEDS: ATORVASTATIN CA 40 MG TABLET (FP) PO SCH (22:30)
[2019-10-31] MEDS: INSULIN (LEVEMIR) 100 UNITS/ML UNITS SQ SCH (22:37)
[2019-11-01] MEDS: INSULIN SLIDING SCALE (NOVOLOG) 1 VIAL SQ SCH ×4 (06:35→21:47)
[2019-11-01] MEDS ORDERED: ALBUTEROL SO4 0.083% IH SOL 2.5 MG/3 ML VIAL.NEB. NEB PRN ×2 (09:34→17:41)
[2019-11-01] MEDS ORDERED: BUDESONIDE/FORMETEROL FUMARATE 160/4.5 mcg INHALER IH SCH (10:00)
[2019-11-01] MEDS ORDERED: HYDROCHLOROTHIAZIDE 12.5 MG CAPSULE (FP) PO SCH (10:00)
[2019-11-01] MEDS ORDERED: DEXTROSE 5%-WATER 100 ML IVPB ONE (10:32)
[2019-11-01] MEDS: CEFTRIAXONE 2 GM in DEXTROSE 5%-WATER 100 ML IVPB SCH (10:41)
[2019-11-01] MEDS: LOSARTAN POTASSIUM 50 MG TABLET (FP) PO SCH ×2 (10:42→21:48)
[2019-11-01] MEDS: ENOXAPARIN NA (PORCINE) 40 MG/0.4 ML DISP.SYRIN SQ SCH (10:42)
[2019-11-01] MEDS: ASPIRIN COATED 81 MG TABLET.EC PO SCH (10:42)
[2019-11-01] MEDS: CARVEDILOL 3.125 MG TABLET (FP) PO SCH ×2 (10:42→22:57)
--- NOTE | 2019-11-01 12:37 | PN ---
Teaching Attending Note Name of Resident: Matt Diana ATTENDING PHYSICIAN STATEMENT I saw and evaluated the patient. I reviewed the resident's note and discussed the case with the resident. I agree with the resident's findings and plan as documented with exceptions below. SUBJECTIVE: Patient seen and examined. oriented to self only, more confused today. No complaints. OBJECTIVE: Vital Signs Period Temp Pulse Resp BP Sys/Bailey Pulse Ox Last 24 Hr 98.0 F-99.9 F 73-82 20-22 131-190/69-86 92 Intake & Output 10/29/19 10/30/19 10/31/19 11/01/19 23:59 23:59 23:59 23:59 Intake Total 110 200 10 Output Total 1125 Balance -1125 110 200 10 Weight 183 lb General: sitting in bed, mild wheezing Chest: decreased air entry, no rales or wheezing Abdomen:Soft, NT Extremities: no edema neuro: AAOx1, more confused today, EOMI, facial symmetry, speech slow, LE proximal thigh movements improved today, otherwise unchanged exam, neck soft, supple, Home Medications Medication Instructions Recorded Aspirin Coated [Ecotrin -] 81 mg PO DAILY 07/28/12 Atorvastatin Ca [Lipitor] 40 mg PO HS 07/28/12 Hydrochlorothiazide [Hctz] 12.5 mg PO DAILY 07/28/12 Losartan Potassium 50 mg PO BID 07/28/12 metFORMIN XR [Glucophage Xr -] 500 mg PO BID 07/28/12 Carvedilol [Coreg -] 3.125 mg PO BID 10/29/19 Insulin (Levemir) [Levemir Vial] 14 unit SQ HS 10/29/19 Nateglinide [Starlix (Nf)] 120 mg PO TID 10/29/19 Active Medications Acetaminophen (Tylenol -) 650 mg PO Q6H PRN PRN Reason: PAIN LEVEL 6-10 Last Admin: 10/31/19 22:30 Dose: 650 mg Albuterol Sulfate (Ventolin 0.083% Nebulizer Soln -) 1 amp NEB Q6H PRN PRN Reason: SHORT OF BREATH/WHEEZING Albuterol/Ipratropium (Duoneb -) 1 amp NEB RQID [facility] Aspirin (Ecotrin -) 81 mg PO DAILY [facility] Last Admin: 11/01/19 10:42 Dose: 81 mg Atorvastatin Calcium (Lipitor -) 40 mg PO HS [facility] Last Admin: 10/31/19 22:30 Dose: 40 mg Budesonide/Formoterol Fumarate (Symbicort 160/4.5mcg -) 2 puff IH BID [facility] Carvedilol (Coreg -) 3.125 mg PO BID [facility] Last Admin: 11/01/19 10:42 Dose: 3.125 mg Enoxaparin Sodium (Lovenox -) 40 mg SQ DAILY [facility] Last Admin: 11/01/19 10:42 Dose: 40 mg Hydrochlorothiazide (Hctz -) 12.5 mg PO DAILY [facility] Last Admin: 11/01/19 10:42 Dose: 12.5 mg Ceftriaxone Sodium 2 gm/ (Dextrose) 100 mls @ 200 mls/hr IVPB DAILY [facility]; Protocol Last Admin: 11/01/19 10:41 Dose: 200 mls/hr Insulin Aspart (Novolog Vial Sliding Scale -) 1 vial SQ ACHS [facility]; Protocol Last Admin: 11/01/19 11:30 Dose: 2 units Insulin Detemir (Levemir Vial) 14 units SQ [facility] Last Admin: 10/31/19 22:37 Dose: Not Given Losartan Potassium (Cozaar -) 50 mg PO BID [facility] Last Admin: 11/01/19 10:42 Dose: 50 mg Non-Formulary Medication (Nateglinide) 120 mg PO TID [facility] Laboratory Results - last 24 hr 10/30/19 10/31/19 10/31/19 06:00 05:55 18:31 POC Glucometer 167 182 Myoglobin 329 H Aldolase 5.0 10/31/19 11/01/19 11/01/19 22:28 06:25 11:28 POC Glucometer 198 210 185 Myoglobin Aldolase Microbiology 10/28/19 23:44 Blood - Peripheral Venous Blood Culture - Preliminary NO GROWTH OBTAINED AFTER 72 HOURS, INCUBATION TO CONTINUE FOR 2 DAYS. 10/28/19 23:44 Blood - Peripheral Venous Blood Culture - Preliminary NO GROWTH OBTAINED AFTER 72 HOURS, INCUBATION TO CONTINUE FOR 2 DAYS. 10/29/19 02:35 Urine - Urine - Catheterized Urine Culture - Final NO GROWTH OBTAINED MRI L spine results reviewed Telemetry: occasional PVCs, no concerns. ASSESSMENT AND PLAN: 78 yom with PMhx of IDDM, HTN, CAD ([place] 1993, no stents), HLD, hx smoking (120 pack-year, quit 3mo ago), and b/l leg weakness (x1yr, unknown cause, walks with walker) admitted with leg weakness, altered speech, ?Amnesia and fever 102 -AMS, with intermittent waxing/waning mental status, suspect toxic metabolic encephalopathy from dehydration +/-URI/Bronchitis in the setting of progressive cognitive decline -Fever , suspect URI vs bronchitis vs maxillary sinusitis -NILAY, suspect dehydration related. -Lower Extremity Weakness, ?from spinal stenosis, r/o myopathy -IDDM -HTN -CAD s/p [place] 1993, no stents -HLD -Chronic LE weakness Plan: More confused today, Repeat CT head neg for concerns. suspect waxing/waning from above issues, in the setting of underlying cognitive dysfunction. Mental status at baseline as confirmed with . Fevers improved. WBC normal ID input noted. Emperic ceftriaxone. CT chest neg for concerns. Add nebs, symbicort. Will need outpatient pulmonary follow up. ongoing LE weakness, suspect gradual. CT spine/MRI L spine with severe canal stenosis, likely contributory. Neurosurgery consult. MRI brain neg for concerns. ASA/statin, neuro checks. Off IVF. Renal function stable. Continue losartan/coreg. resume HCTZ. Levemir/ISS Speech/swallow input noted. PO as tolerated. CT spine noted. DVTPPX lovenox PT eval noted,will need SNF. Social work input noted Dispo planning to SNF pending neurosurgery recommendations and disposition arrangements. Dc telemetry.
[2019-11-01] MEDS: ALBUTEROL SO4 2.5/IPRATROPIUM 0.5 INH SOL 3 ML VIAL.NEB. NEB SCH ×3 (13:00→21:45)
--- NOTE | 2019-11-01 14:10 | PN ---
Physical Exam: SUBJECTIVE: Patient seen and examined at the bedside. Patient appeared more confused than yesterday and was less oriented. Endorsed a cough. Denied acute complaints of cp, sob, abd pain, n/v/c/d, fever, chills, headaches, dizziness, lightheadedness. OBJECTIVE: Vital Signs Period Temp Pulse Resp BP Sys/Bailey Pulse Ox Last 24 Hr 98.0 F-99.9 F 73-82 20-22 131-190/69-86 92 GENERAL: The patient is awake, alert, and oriented to self, in no acute distress. HEAD: Normal with no signs of trauma. EYES: PERRL, extraocular movements intact, sclera anicteric, conjunctiva clear. ENT: Oropharynx clear without exudates, moist mucous membranes. LUNGS: Breath sounds equal, with some coarse breath sounds throughout. No auscultated wheezes. Talking in short sentences. HEART: Regular rate and rhythm, S1, S2 without murmur, rub. ABDOMEN: Soft, nontender, nondistended, normoactive bowel sounds, no guarding, no rebound, no masses. EXTREMITIES: 2+ pulses, warm, well-perfused, no edema. NEUROLOGICAL: Cranial nerves II through XII grossly intact. 5/5 strength bilaterally in the upper extremities. 4/5 muscle strength bilaterally in the LE proximally. Sensation is intact to gross touch throughout. PSYCH: Normal mood, normal affect. SKIN: Warm, dry, normal turgor, no rashes or lesions noted. Laboratory Results - last 24 hr 10/30/19 10/31/19 10/31/19 06:00 05:55 18:31 POC Glucometer 167 182 Myoglobin 329 H Aldolase 5.0 10/31/19 11/01/19 11/01/19 22:28 06:25 11:28 POC Glucometer 198 210 185 Myoglobin Aldolase Active Medications Generic Name Dose Route Start Last Admin Trade Name Freq PRN Reason Stop Dose Admin Acetaminophen 650 mg 10/29/19 04:53 10/31/19 22:30 Tylenol - PO 650 mg Q6H PRN Administration PAIN LEVEL 6-10 Albuterol Sulfate 1 amp 11/01/19 09:34 Ventolin 0.083% Nebulizer Soln - NEB Q6H PRN SHORT OF BREATH/WHEEZING Albuterol/Ipratropium 1 amp 11/01/19 12:00 Duoneb - NEB RQID [facility] Aspirin 81 mg 10/30/19 10:00 11/01/19 10:42 Ecotrin - PO 81 mg DAILY [facility] Administration Atorvastatin Calcium 40 mg 10/29/19 22:00 10/31/19 22:30 Lipitor - PO 40 mg HS [facility] Administration Budesonide/Formoterol Fumarate 2 puff 11/01/19 10:00 11/01/19 12:58 Symbicort 160/4.5mcg - IH 2 puff BID [facility] Administration Carvedilol 3.125 mg 10/29/19 22:00 11/01/19 10:42 Coreg - PO 3.125 mg BID [facility] Administration Enoxaparin Sodium 40 mg 10/31/19 10:00 11/01/19 10:42 Lovenox - SQ 40 mg DAILY [facility] Administration Hydrochlorothiazide 12.5 mg 11/01/19 10:00 11/01/19 10:42 Hctz - PO 12.5 mg DAILY [facility] Administration Ceftriaxone Sodium 2 gm/ 100 mls @ 200 mls/hr 10/30/19 10:00 11/01/19 10:41 Dextrose IVPB 200 mls/hr DAILY [facility] Administration Protocol Insulin Aspart 1 vial 10/29/19 07:00 11/01/19 11:30 Novolog Vial Sliding Scale - SQ 2 units ACHS [facility] Administration Protocol Insulin Detemir 14 units 10/29/19 22:00 10/31/19 22:37 Levemir Vial SQ Not Given HS [facility] Losartan Potassium 50 mg 10/29/19 22:00 11/01/19 10:42 Cozaar - PO 50 mg BID [facility] Administration Non-Formulary Medication 120 mg 10/29/19 22:00 Nateglinide PO TID [facility] EXAM#: TYPE/EXAM: RESULT: [id number] MRI/LUMBAR SPINE MRI W/O CONTRAST REASON FOR THE STUDY. Rule out stenosis MRI OF LUMBOSACRAL SPINE WITHOUT IV CONTRAST. Multiple pulse sequences were completed utilizing [employer] 1.5T SIGNA MRI system. Sagittal: T1, T2, STIR. Axial: T1, T2. Coronal: T2. Comparison study. CT lumbosacral spine October 28, 2019 Findings. Degradation of images due to the motion artifacts. Normal lumbar lordosis noted. Rotatory levoscoliosis. T12-L1. No evidence of disc displacement, central spinal canal stenosis, neural foraminal narrowing. Chronic Schmorl's node in the superior endplate of T12. Direct axial and obtained from L1 through L5-S1. L1-L2. Mild posterior annular bulge. There is no evidence of central spinal canal stenosis. No compression or neural structures traversing through the neural foramina. L2-L3. Disc space narrowing. Facet joint arthropathy. Mild retrolisthesis of L1 on L2. No evidence of central spinal canal stenosis. No compression of L2 nerve traversing through the neural foramina. L3-4. Disc space narrowing. Broad-based disc protrusion. Facet joint arthropathy. Central spinal canal stenosis. Left paracentral anterior spondylolisthesis of L3 on L4. Left neural foramina disc protrusion, contacting left L3 nerve. Right paracentral retrolisthesis of L3 on L4. Facet joint arthropathy. L4-L5. Asymmetric disc space narrowing more prominent on concave side of the curve with prominent right lateral marginal osteophytes. Hypertrophic facet joint arthropathy with thickened ligamentum flavum. Anterior spondylolisthesis of L4 on L5. Horizontal orientation of the right neural foramen with loss of vertical height. No compression of L4 nerves traversing through the neural foramina. Central spinal canal stenosis. L5-S1. Posterior annular bulge. Facet joint arthropathy. No evidence of central spinal canal stenosis neural foramina narrowing. No pathological bone marrow replacement or bone marrow edema is seen. Intact pedicles On T2 coronal images, no hydronephrosis is seen. No hepatic or splenic lesions are seen within the limitation of examination. Symmetrical articulation of the hip joints. Normal contour of the femoral heads. Normal signal intensity of the psoas muscles. IMPRESSION. Limited examination due to motion artifacts. Rotatory levoscoliosis. Central spinal canal stenosis is L3-4, L4-L5. ASSESSMENT/PLAN: Cliff Temple is a 78 year old male with a past medical history of IDDM, HTN, CAD ([place] 1993, no stents), HLD, hx smoking (120 pack-year, quit 3mo ago), and b/l leg weakness (x1yr, unknown cause, walks with walker) admitted for b/l leg weakness, word finding difficulty, and amnesia, with associated urinary incontinence. Worsening b/l leg weakness - head CT no acute pathology, thoracic and lumbar Chronic advanced intervertebral osteochondrosis is noted from the T6-7 down through the T11-12 levels, and at the L2-3 through the L4-5 levels - Prominent disc osteophyte complexes at T6-7, T7-8 and T8-9, which are producing moderate central spinal canal stenoses, and posterior displacement of the thecal sac, but without clear evidence of spinal cord compression. - Smaller disc osteophyte complexes are noted at T11-12 and L3-4 producing mild central spinal canal stenoses. - carotid U/S showing mild atherosclerotic disease with no hemodynamically significant stenosis - echo showing mild concentric hypertrophy, EF 60%, trace to mild aortic regurgitation - Neurology consulted, recs appreciated, hold off on spinal tap due to low suspicion of meningitis - for outpatient EMG - myopathy workup noting elevated myoglobin - speech and swallow eval noting patient can be resumed on regular diet - neurochecks Q2h - brain MRI noting mild periventriuclar and subcortical chronic microvascular ischemic changes, paranasal sinus disease, no noted acute infarct - continue statin and aspirin - lumbar spine MRI noting central spinal canal stenosis in L3-L4, L4-L5, disc space narrowing, disc bulging, contact of L3 nerve - neurosurgery consulted - Physical therapy noting patient can only ambulate 8 feet, will likely need SNF Fever and AMS - patient having altered mental status today, CT negative for any changes - no clear source of infection identified - remained afebrile for >24 hours - Urine and blood cultures negative - no evidence of PNA on CT - ID consulted, continue ceftriaxone - neuro noting to hold off on spinal tap due to low suspicion of meningitis Hx of Smoking - today had mild difficulty breathing - Duonebs scheduled - ventolon prn - CXR with no acute findings NILAY - improving - renal U/S with no evidence of hydronephrosis or acute renal pathology - monitor urine output - Dr Paulson consulted, recs appreciated - avoid nephrotoxic agents AAA on CT - 4.[address] - abdominal US noting a 3.2cm distal AAA DM - BGM - ISS - A1c 6.0 - levemir 14 units subq qhs HTN - restart home medications - restart HCTZ due to elevated BPs HLD - continue atorvastatin 40mg FEN - no standing fluids, encourage PO intake - continue to monitor electrolytes and replete as necessary - diabetic diet DVT - lovenox 40mg subq daily Dispo - continue to monitor on telemetry Visit type - Emergency Visit Emergency Visit: Yes ED Registration Date: 10/28/19 Care time: The patient presented to the Emergency Department on the above date and was hospitalized for further evaluation of their emergent condition. - New Patient This patient is new to me today: No - Critical Care Critical Care patient: No
[2019-11-01 16:37] LABS: ARTERIAL BLD GAS O2 SATURATION 89.3 % (95-98); ARTERIAL BLOOD GAS BASE EXCESS 1.5 meq/l (-2-2); ARTERIAL BLOOD GAS PCO2 38.7 mmHg (35-45); ARTERIAL BLOOD GAS PO2 58.4 mmHg (80-100); ARTERIAL BLOOD GAS pH 7.43 (7.35-7.45)
[2019-11-01 16:41] LABS: ALLENS TEST POSITIVE
--- NOTE | 2019-11-01 16:51 | PN ---
Progress Note, Physician History of Present Illness: Pt seen and examined at bedside. He is confused. - Current Medication List Current Medications: Active Medications Acetaminophen (Tylenol -) 650 mg PO Q6H PRN PRN Reason: PAIN LEVEL 6-10 Last Admin: 10/31/19 22:30 Dose: 650 mg Albuterol Sulfate (Ventolin 0.083% Nebulizer Soln -) 1 amp NEB Q6H PRN PRN Reason: SHORT OF BREATH/WHEEZING Albuterol/Ipratropium (Duoneb -) 1 amp NEB RQID [facility] Last Admin: 11/01/19 16:44 Dose: 1 amp Aspirin (Ecotrin -) 81 mg PO DAILY [facility] Last Admin: 11/01/19 10:42 Dose: 81 mg Atorvastatin Calcium (Lipitor -) 40 mg PO HS [facility] Last Admin: 10/31/19 22:30 Dose: 40 mg Budesonide/Formoterol Fumarate (Symbicort 160/4.5mcg -) 2 puff IH BID [facility] Last Admin: 11/01/19 12:58 Dose: 2 puff Carvedilol (Coreg -) 3.125 mg PO BID [facility] Last Admin: 11/01/19 10:42 Dose: 3.125 mg Enoxaparin Sodium (Lovenox -) 40 mg SQ DAILY [facility] Last Admin: 11/01/19 10:42 Dose: 40 mg Hydrochlorothiazide (Hctz -) 12.5 mg PO DAILY [facility] Last Admin: 11/01/19 10:42 Dose: 12.5 mg Ceftriaxone Sodium 2 gm/ (Dextrose) 100 mls @ 200 mls/hr IVPB DAILY [facility]; Protocol Last Admin: 11/01/19 10:41 Dose: 200 mls/hr Insulin Aspart (Novolog Vial Sliding Scale -) 1 vial SQ ACHS [facility]; Protocol Last Admin: 11/01/19 16:43 Dose: Not Given Insulin Detemir (Levemir Vial) 14 units SQ HS [facility] Last Admin: 10/31/19 22:37 Dose: Not Given Losartan Potassium (Cozaar -) 50 mg PO BID [facility] Last Admin: 11/01/19 10:42 Dose: 50 mg Non-Formulary Medication (Nateglinide) 120 mg PO TID [facility] - Objective Vital Signs: Vital Signs Temperature 97.4 F L 11/01/19 15:37 Pulse Rate 89 11/01/19 15:37 Respiratory Rate 20 11/01/19 15:37 Blood Pressure 127/84 11/01/19 15:37 O2 Sat by Pulse Oximetry (%) 93 L 11/01/19 09:00 Constitutional: Yes: Calm Eyes: Yes: Conjunctiva Clear HENT: Yes: Atraumatic Neck: Yes: Supple Cardiovascular: Yes: S1, S2 Respiratory: Yes: CTA Bilaterally Gastrointestinal: Yes: Soft Genitourinary: Yes: Incontinence Musculoskeletal: Yes: WNL Edema: No Integumentary: Yes: WNL Neurological: Yes: Confusion Labs: CBC, BMP 10/31/19 06:00 10/31/19 06:00 INR, PTT INR 1.02 (0.83-1.09) 10/28/19 22:14 Problem List - Problems (1) NILAY (acute kidney injury) Code(s): N17.9 - ACUTE KIDNEY FAILURE, UNSPECIFIED (2) Bilateral leg weakness Code(s): R29.898 - OTH SYMPTOMS AND SIGNS INVOLVING THE MUSCULOSKELETAL SYSTEM (3) Word finding difficulty Code(s): R47.89 - OTHER SPEECH DISTURBANCES Assessment/Plan Current Medications Generic Name Dose Route Start Last Admin Trade Name Freq PRN Reason Stop Dose Admin Acetaminophen 650 mg 10/29/19 04:53 10/31/19 22:30 Tylenol - PO 650 mg Q6H PRN Administration PAIN LEVEL 6-10 Albuterol Sulfate 1 amp 11/01/19 09:34 Ventolin 0.083% Nebulizer Soln - NEB Q6H PRN SHORT OF BREATH/WHEEZING Albuterol/Ipratropium 1 amp 11/01/19 12:00 11/01/19 16:44 Duoneb - NEB 1 amp RQID [facility] Administration Aspirin 81 mg 10/30/19 10:00 11/01/19 10:42 Ecotrin - PO 81 mg DAILY [facility] Administration Atorvastatin Calcium 40 mg 10/29/19 22:00 10/31/19 22:30 Lipitor - PO 40 mg HS [facility] Administration Budesonide/Formoterol Fumarate 2 puff 11/01/19 10:00 11/01/19 12:58 Symbicort 160/4.5mcg - IH 2 puff BID [facility] Administration Carvedilol 3.125 mg 10/29/19 22:00 11/01/19 10:42 Coreg - PO 3.125 mg BID [facility] Administration Enoxaparin Sodium 40 mg 10/31/19 10:00 11/01/19 10:42 Lovenox - SQ 40 mg DAILY [facility] Administration Hydrochlorothiazide 12.5 mg 11/01/19 10:00 11/01/19 10:42 Hctz - PO 12.5 mg DAILY [facility] Administration Ceftriaxone Sodium 2 gm/ 100 mls @ 200 mls/hr 10/30/19 10:00 11/01/19 10:41 Dextrose IVPB 200 mls/hr DAILY [facility] Administration Protocol Insulin Aspart 1 vial 10/29/19 07:00 11/01/19 16:43 Novolog Vial Sliding Scale - SQ Not Given ACHS [facility] Protocol Insulin Detemir 14 units 10/29/19 22:00 10/31/19 22:37 Levemir Vial SQ Not Given HS [facility] Losartan Potassium 50 mg 10/29/19 22:00 11/01/19 10:42 Cozaar - PO 50 mg BID [facility] Administration Non-Formulary Medication 120 mg 10/29/19 22:00 Nateglinide PO TID [facility] Impression 1. NILAY 2. change in mental status 3. weakness 4. dm 5. htn 6. CAD 7. AAA 8. hypokalemia Plan - no new labs - renal function had improved - monitor lytese - likely in part pre-renal disease - will follow prn, recall as needed
[2019-11-01 17:34] LABS: BASO % 0.3 % (0-2.0); EOS % 0.3 % (0-4.5); HEMATOCRIT 40.2 % (35.4-49); HEMOGLOBIN 13.6 GM/dL (11.7-16.9); MCH 32.1 pg (25.7-33.7); MCHC 33.8 g/dl (32.0-35.9); MEAN CELL VOLUME 95.2 fl (80-96); MEAN PLT VOLUME 8.4 fl (7.5-11.1); MONO % 20.5 % (3.8-10.2); NEUT % 57.9 % (42.8-82.8); PLATELET COUNT 199 K/MM3 (134-434); RBC 4.22 M/mm3 (4.00-5.60); WHITE BLOOD COUNT 4.6 K/mm3 (4.0-10.0)
[2019-11-01] MEDS ORDERED: ACETAMINOPHEN 325 MG TABLET (FP) PO PRN (17:41)
[2019-11-01 18:05] LABS: ALBUMIN 3.4 g/dl (3.4-5.0); BILIRUBIN,TOTAL 0.5 mg/dL (0.2-1); BLOOD UREA NITROGEN 24.5 mg/dL (7-18); CREATININE 1.2 mg/dL (0.55-1.3); MAGNESIUM 2.2 mg/dL (1.8-2.4); POTASSIUM 3.7 mmol/L (3.5-5.1); TOT PROT 6.8 g/dl (6.4-8.2)
[2019-11-01] MEDS ORDERED: QUEtiapine FUMARATE 25 MG TABLET (FP) PO ONE (18:18)
[2019-11-01 19:36] LABS: OVALOCYTE 1+
[2019-11-01 19:37] LABS: PLATELET ESTIMATE ADEQUATE
[2019-11-01] MEDS ORDERED: INSULIN (NOVOLOG) ASPART 100 UNITS/ML 10ML VIAL ONE (20:37)
[2019-11-01] MEDS: BUDESONIDE/FORMETEROL FUMARATE 160/4.5 mcg INHALER IH SCH (21:47)
[2019-11-01] MEDS: ATORVASTATIN CA 40 MG TABLET (FP) PO SCH (21:48)
[2019-11-01] MEDS ORDERED: PATIENT'S OWN MEDICATION (NON-FORMULARY) (Nateglinide 120 MG) PO SCH (22:00)
[2019-11-01] MEDS: INSULIN (LEVEMIR) 100 UNITS/ML UNITS SQ SCH (23:49)
[2019-11-02] MEDS: INSULIN SLIDING SCALE (NOVOLOG) 1 VIAL SQ SCH ×4 (06:00→21:45)
[2019-11-02 07:04] LABS: HEMATOCRIT 37.6 % (35.4-49); HEMOGLOBIN 12.8 GM/dL (11.7-16.9); MCH 31.9 pg (25.7-33.7); MCHC 34.1 g/dl (32.0-35.9); MEAN CELL VOLUME 93.6 fl (80-96); MEAN PLT VOLUME 8.3 fl (7.5-11.1); PLATELET COUNT 190 K/MM3 (134-434); RBC 4.02 M/mm3 (4.00-5.60); RDW 14.1 % (11.9-15.9); WHITE BLOOD COUNT 3.9 K/mm3 (4.0-10.0)
[2019-11-02 07:39] LABS: ALBUMIN 3.2 g/dl (3.4-5.0); BILIRUBIN,TOTAL 0.6 mg/dL (0.2-1); BLOOD UREA NITROGEN 26.8 mg/dL (7-18); CALCIUM 9.3 mg/dL (8.5-10.1); MAGNESIUM 2.3 mg/dL (1.8-2.4); POTASSIUM 3.5 mmol/L (3.5-5.1); TOT PROT 6.3 g/dl (6.4-8.2)
[2019-11-02] MEDS: ALBUTEROL SO4 2.5/IPRATROPIUM 0.5 INH SOL 3 ML VIAL.NEB. NEB SCH ×3 (07:48→20:14)
[2019-11-02] MEDS ORDERED: CEFTRIAXONE 2 GM in DEXTROSE 5%-WATER 100 ML IVPB SCH (10:00)
[2019-11-02] MEDS ORDERED: DEXTROSE 5%-WATER 100 ML IVPB ONE (10:47)
[2019-11-02] MEDS: ENOXAPARIN NA (PORCINE) 40 MG/0.4 ML DISP.SYRIN SQ SCH (10:55)
[2019-11-02] MEDS: HYDROCHLOROTHIAZIDE 12.5 MG CAPSULE (FP) PO SCH (12:14)
[2019-11-02] MEDS: CARVEDILOL 3.125 MG TABLET (FP) PO SCH ×2 (12:14→21:48)
[2019-11-02] MEDS: LOSARTAN POTASSIUM 50 MG TABLET (FP) PO SCH ×2 (12:14→21:48)
[2019-11-02] MEDS: ASPIRIN COATED 81 MG TABLET.EC PO SCH (12:17)
--- NOTE | 2019-11-02 13:28 | EKG ---
Test Reason : Blood Pressure : / mmHG Vent. Rate : 070 BPM Atrial Rate : 086 BPM P-R Int : 160 ms QRS Dur : 142 ms QT Int : 586 ms P-R-T Axes : 052 -86 -75 degrees QTc Int : 632 ms SINUS RHYTHM WITH OCCASIONAL PREMATURE VENTRICULAR COMPLEXES AND PREMATURE ATRIAL COMPLEXES LEFT AXIS DEVIATION RIGHT BUNDLE BRANCH BLOCK T WAVE ABNORMALITY, CONSIDER INFEROLATERAL ISCHEMIA ABNORMAL ECG WHEN COMPARED WITH ECG OF 28-OCT-2019 22:01, PREMATURE VENTRICULAR COMPLEXES ARE NOW PRESENT T WAVE INVERSION NOW EVIDENT IN INFERIOR LEADS T WAVE INVERSION MORE EVIDENT IN ANTEROLATERAL LEADS QT HAS LENGTHENED Confirmed by MD JULIANO, LEIGHTON ([id number]) on 11/02/2019 1:28:09 PM Referred By: Karla DÍAZ Confirmed By:LEIGHTON HENAO MD
--- NOTE | 2019-11-02 14:17 | PN ---
Physical Exam: SUBJECTIVE: Patient seen and examined, more awake, less confused, no complaints , at bedside. Worried patient slept through half the morning. OBJECTIVE: Vital Signs Period Temp Pulse Resp BP Sys/Bailey Pulse Ox Last 24 Hr 97.4 F-98.6 F 77-89 20-20 127-160/70-97 94 Intake & Output 10/30/19 10/31/19 11/01/19 11/02/19 23:59 23:59 23:59 23:59 Intake Total 110 200 450 100 Balance 110 200 450 100 GENERAL: sitting in bed, no acute distress Neck: Soft, supple Chest: CTAB, no rales or wheezing Abdomen:soft, NT, ND, Extremities: no edema Neuro: AA, oriented to self, place, knows is October, better interactive today , unchanged exam otherwise. LE proximal muscle strength overall unchanged Home Medications Medication Instructions Recorded Aspirin Coated [Ecotrin -] 81 mg PO DAILY 07/28/12 Atorvastatin Ca [Lipitor] 40 mg PO HS 07/28/12 Hydrochlorothiazide [Hctz] 12.5 mg PO DAILY 07/28/12 Losartan Potassium 50 mg PO BID 07/28/12 metFORMIN XR [Glucophage Xr -] 500 mg PO BID 07/28/12 Carvedilol [Coreg -] 3.125 mg PO BID 10/29/19 Insulin (Levemir) [Levemir Vial] 14 unit SQ HS 10/29/19 Nateglinide [Starlix (Nf)] 120 mg PO TID 10/29/19 Laboratory Results - last 24 hr 10/30/19 11/01/19 11/01/19 06:00 16:15 16:42 WBC RBC Hgb Hct MCV MCH MCHC RDW Plt Count MPV Absolute Neuts (auto) Total Counted Neutrophils % Neutrophils % (Manual) Band Neutrophils % Lymphocytes % Lymphocytes % (Manual) Monocytes % Monocytes % (Manual) Eosinophils % Basophils % Nucleated RBC % Differential Comment Platelet Estimate Platelet Comment Polychromasia Poikilocytosis Ovalocytes Anticoagulation Therapy No Result Required. Puncture Site Right radial ABG pH 7.43 ABG pCO2 at Pt Temp 38.7 ABG pO2 at Pt Temp 58.4 L ABG HCO3 25.2 ABG O2 Sat (Measured) 89.3 L ABG O2 Content 19.6 ABG Base Excess 1.5 Moo Test Positive O2 Delivery Device Room air Oxygen Flow Rate 21 Vent Mode No Result Required. Vent Rate No Result Required. Mechanical Rate No Result Required. Pressure Support Vent No Result Required. Sodium Potassium Chloride Carbon Dioxide Anion Gap BUN Creatinine Est GFR (CKD-EPI)AfAm Est GFR (CKD-EPI)NonAf POC Glucometer 146 Random Glucose Calcium Magnesium Total Bilirubin AST ALT Alkaline Phosphatase Total Protein Total Protein (PEP) 5.4 L Albumin Albumin (PEP) 3.1 Globulin 2.3 Albumin/Globulin Ratio 1.3 Beta Globulins 0.7 JASON M-Axel Not observed 11/01/19 11/01/19 11/01/19 17:00 17:00 21:39 WBC 4.6 RBC 4.22 Hgb 13.6 Hct 40.2 MCV 95.2 MCH 32.1 MCHC 33.8 RDW 14.0 Plt Count 199 MPV 8.4 Absolute Neuts (auto) 2.7 Total Counted 100 Neutrophils % 57.9 Neutrophils % (Manual) 51.0 Band Neutrophils % 1.0 Lymphocytes % 21.0 D Lymphocytes % (Manual) 22.0 Monocytes % 20.5 H Monocytes % (Manual) 24 H Eosinophils % 0.3 Basophils % 0.3 Nucleated RBC % 0 Differential Comment Man diff performed Platelet Estimate Adequate Platelet Comment Slide scanned. Polychromasia 1+ Poikilocytosis 1+ Ovalocytes 1+ Anticoagulation Therapy Puncture Site ABG pH ABG pCO2 at Pt Temp ABG pO2 at Pt Temp ABG HCO3 ABG O2 Sat (Measured) ABG O2 Content ABG Base Excess Moo Test O2 Delivery Device Oxygen Flow Rate Vent Mode Vent Rate Mechanical Rate Pressure Support Vent Sodium 141 Potassium 3.7 Chloride 104 Carbon Dioxide 26 Anion Gap 11 BUN 24.5 H Creatinine 1.2 Est GFR (CKD-EPI)AfAm 67.20 Est GFR (CKD-EPI)NonAf 57.98 POC Glucometer 184 Random Glucose 147 H Calcium 9.0 Magnesium 2.2 Total Bilirubin 0.5 AST 78 H ALT 36 Alkaline Phosphatase 80 Total Protein 6.8 Total Protein (PEP) Albumin 3.4 Albumin (PEP) Globulin Albumin/Globulin Ratio Beta Globulins JASON M-Axel 11/02/19 11/02/19 11/02/19 04:52 05:50 05:50 WBC 3.9 L RBC 4.02 Hgb 12.8 Hct 37.6 MCV 93.6 MCH 31.9 MCHC 34.1 RDW 14.1 Plt Count 190 MPV 8.3 Absolute Neuts (auto) Total Counted Neutrophils % Neutrophils % (Manual) Band Neutrophils % Lymphocytes % Lymphocytes % (Manual) Monocytes % Monocytes % (Manual) Eosinophils % Basophils % Nucleated RBC % Differential Comment Platelet Estimate Platelet Comment Polychromasia Poikilocytosis Ovalocytes Anticoagulation Therapy Puncture Site ABG pH ABG pCO2 at Pt Temp ABG pO2 at Pt Temp ABG HCO3 ABG O2 Sat (Measured) ABG O2 Content ABG Base Excess Moo Test O2 Delivery Device Oxygen Flow Rate Vent Mode Vent Rate Mechanical Rate Pressure Support Vent Sodium 144 Potassium 3.5 Chloride 107 Carbon Dioxide 27 Anion Gap 10 BUN 26.8 H Creatinine 1.0 Est GFR (CKD-EPI)AfAm 83.77 Est GFR (CKD-EPI)NonAf 72.28 POC Glucometer 141 Random Glucose 141 H Calcium 9.3 Magnesium 2.3 Total Bilirubin 0.6 AST 70 H ALT 35 Alkaline Phosphatase 75 Total Protein 6.3 L Total Protein (PEP) Albumin 3.2 L Albumin (PEP) Globulin Albumin/Globulin Ratio Beta Globulins JASON M-Axel 11/02/19 11:15 WBC RBC Hgb Hct MCV MCH MCHC RDW Plt Count MPV Absolute Neuts (auto) Total Counted Neutrophils % Neutrophils % (Manual) Band Neutrophils % Lymphocytes % Lymphocytes % (Manual) Monocytes % Monocytes % (Manual) Eosinophils % Basophils % Nucleated RBC % Differential Comment Platelet Estimate Platelet Comment Polychromasia Poikilocytosis Ovalocytes Anticoagulation Therapy Puncture Site ABG pH ABG pCO2 at Pt Temp ABG pO2 at Pt Temp ABG HCO3 ABG O2 Sat (Measured) ABG O2 Content ABG Base Excess Moo Test O2 Delivery Device Oxygen Flow Rate Vent Mode Vent Rate Mechanical Rate Pressure Support Vent Sodium Potassium Chloride Carbon Dioxide Anion Gap BUN Creatinine Est GFR (CKD-EPI)AfAm Est GFR (CKD-EPI)NonAf POC Glucometer 147 Random Glucose Calcium Magnesium Total Bilirubin AST ALT Alkaline Phosphatase Total Protein Total Protein (PEP) Albumin Albumin (PEP) Globulin Albumin/Globulin Ratio Beta Globulins JASON M-Axel Active Medications Generic Name Dose Route Start Last Admin Trade Name Freq PRN Reason Stop Dose Admin Acetaminophen 650 mg 11/01/19 17:41 Tylenol - PO Q6H PRN PAIN LEVEL 6-10 Albuterol Sulfate 1 amp 11/01/19 17:41 Ventolin 0.083% Nebulizer Soln - NEB Q6H PRN SHORT OF BREATH/WHEEZING Albuterol/Ipratropium 1 amp 11/01/19 20:00 11/02/19 12:19 Duoneb - NEB 1 amp RQID [facility] Administration Aspirin 81 mg 11/02/19 10:00 11/02/19 12:17 Ecotrin - PO 81 mg DAILY [facility] Administration Atorvastatin Calcium 40 mg 11/01/19 22:00 11/01/19 21:48 Lipitor - PO 40 mg HS [facility] Administration Budesonide/Formoterol Fumarate 2 puff 11/01/19 22:00 11/01/19 21:47 Symbicort 160/4.5mcg - IH 2 puff BID [facility] Administration Carvedilol 3.125 mg 11/01/19 22:00 11/02/19 12:14 Coreg - PO Not Given BID [facility] Enoxaparin Sodium 40 mg 11/02/19 10:00 11/02/19 10:55 Lovenox - SQ 40 mg DAILY [facility] Administration Hydrochlorothiazide 12.5 mg 11/02/19 10:00 11/02/19 12:14 Hctz - PO Not Given DAILY [facility] Ceftriaxone Sodium 2 gm/ 100 mls @ 200 mls/hr 11/02/19 10:00 11/02/19 10:55 Dextrose IVPB 200 mls/hr DAILY [facility] Administration Protocol Insulin Aspart 1 vial 11/01/19 22:00 11/02/19 12:52 Novolog Vial Sliding Scale - SQ Not Given ACHS [facility] Protocol Insulin Detemir 14 units 11/01/19 22:00 11/01/19 23:49 Levemir Vial SQ 14 units HS [facility] Administration Losartan Potassium 50 mg 11/01/19 22:00 11/02/19 12:14 Cozaar - PO Not Given BID [facility] Non-Formulary Medication 120 mg 11/01/19 22:00 Nateglinide PO TID [facility] Microbiology 10/28/19 23:44 Blood - Peripheral Venous Blood Culture - Preliminary NO GROWTH OBTAINED AFTER 96 HOURS, INCUBATION TO CONTINUE FOR 1 DAYS. 10/28/19 23:44 Blood - Peripheral Venous Blood Culture - Preliminary NO GROWTH OBTAINED AFTER 96 HOURS, INCUBATION TO CONTINUE FOR 1 DAYS. 10/29/19 02:35 Urine - Urine - Catheterized Urine Culture - Final NO GROWTH OBTAINED ASSESSMENT/PLAN: 78 yom with PMhx of IDDM, HTN, CAD (1993, no stents), HLD, hx smoking (120 pack-year, quit 3mo ago), and b/l leg weakness (x1yr, unknown cause, walks with walker) admitted with leg weakness, altered speech, ?Amnesia and fever 102 -AMS, with intermittent waxing/waning mental status, suspect toxic metabolic encephalopathy from dehydration +/-URI/Bronchitis in the setting of progressive cognitive decline -Fever , suspect URI vs bronchitis vs maxillary sinusitis -NILAY, suspect dehydration related. -Lower Extremity Weakness, ?from spinal stenosis, r/o myopathy -IDDM -HTN -CAD s/p 1993, no stents -HLD -Chronic LE weakness Plan: Mental status better, slept well. Will place on low dose seroquel at 7 pm. fevers resolved, ID input noted. Ceftriaxone day 6, change to augmentin for total 7-10 day course. Nebs prn, symbicort, outpatient pulmonary follow up. CT/MRI L spine with severe canal stenosis. Await neurosurgery input. Anticipate aggressive PT and outpatient follow up. Waxing an dwaning mental status.MRI brain and repeat CT head neg for concerns. ASA/statin, neuro checks. Off IVF. Renal function stable. Continue losartan/coreg/HCTZ. Levemir/ISS Speech/swallow input noted. PO as tolerated. DVTPPX lovenox PT eval noted,will need SNF. Dispo dc to SNF pending arrangements with outpatient neurology/Spine follow up Discussed with patient and at bedside, all questions answered. Visit type - Emergency Visit Emergency Visit: Yes ED Registration Date: 10/28/19 Care time: The patient presented to the Emergency Department on the above date and was hospitalized for further evaluation of their emergent condition. - New Patient This patient is new to me today: No - Critical Care Critical Care patient: No - Discharge Referral Referred to [facility] Med [facility].: No
[2019-11-02] MEDS: BUDESONIDE/FORMETEROL FUMARATE 160/4.5 mcg INHALER IH SCH ×2 (16:01→21:49)
[2019-11-02] MEDS: QUEtiapine FUMARATE 25 MG TABLET (FP) PO SCH (19:43)
[2019-11-02] MEDS ORDERED: INSULIN (NOVOLOG) ASPART 100 UNITS/ML 10ML VIAL ONE (20:08)
[2019-11-02] MEDS: INSULIN (LEVEMIR) 100 UNITS/ML UNITS SQ SCH (21:43)
[2019-11-02] MEDS: ATORVASTATIN CA 40 MG TABLET (FP) PO SCH (21:43)
--- NOTE | 2019-11-02 22:17 | CONSULT ---
Consult - text type - Consultation Consultation Note: NEUROSURGERY CONSULTATION Cliff Temple is a 78 year old male who presented to the [facility] ED on October 28, 2019 with progressive gait difficulties. He has had a one year history of progressive gait deterioration and has started to walk in a stooped position suggestive of neurogenic claudication. In addition to his gait difficulties, the patient has had progressive cognitive deterioration. His speech was impaired on presentation and initial evaluation was made to rule out stroke. CT and MRI of the brain did not reveal acute stroke or mass lesion. 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 His clinical picture is certainly consistent with this being the etiology of his gait difficulties and lower extremity dysfunction. When I examined him on November 01, 2019, he had his eyes open but was poorly interactive with the examination. I understand from the nursing staff and other caregivers that his mental state is waxing and waning and at times he is much more appropriate. I discussed his medical comorbidities with Dr. Osorio and we agreed that he is not currently fit to undergo L2-5 decompression with possible stabilization at this current time. Although this procedure has a reasonable chance of improving his difficulties, he is currently not medically optimized. We agreed that semi- elective evaluation on a day his can be present and he is more lucid would be an appropriate time to discuss this possibility in greater detail. Will follow with the team and hopefully will be able to speak with spouse and patient at a more opportune time.
[2019-11-03] MEDS: INSULIN SLIDING SCALE (NOVOLOG) 1 VIAL SQ SCH ×4 (06:15→21:13)
[2019-11-03] MEDS: ALBUTEROL SO4 2.5/IPRATROPIUM 0.5 INH SOL 3 ML VIAL.NEB. NEB SCH ×5 (08:45→21:09)
[2019-11-03] MEDS ORDERED: PT OWN MED DRAWER 7, Y5N ONE (08:56)
[2019-11-03] MEDS: AMOX TR/POT CLAV 875MG/125MG TABLETS (FP) PO SCH ×2 (09:52→17:09)
[2019-11-03] MEDS: CARVEDILOL 3.125 MG TABLET (FP) PO SCH ×2 (09:52→21:12)
[2019-11-03] MEDS: HYDROCHLOROTHIAZIDE 12.5 MG CAPSULE (FP) PO SCH (09:52)
[2019-11-03] MEDS: ASPIRIN COATED 81 MG TABLET.EC PO SCH (09:53)
[2019-11-03] MEDS: LOSARTAN POTASSIUM 50 MG TABLET (FP) PO SCH ×2 (09:53→21:13)
[2019-11-03] MEDS: ENOXAPARIN NA (PORCINE) 40 MG/0.4 ML DISP.SYRIN SQ SCH (09:53)
[2019-11-03] MEDS: BUDESONIDE/FORMETEROL FUMARATE 160/4.5 mcg INHALER IH SCH ×2 (09:54→21:14)
--- NOTE | 2019-11-03 12:18 | PN ---
Teaching Attending Note Name of Resident: Claudia Miller ATTENDING PHYSICIAN STATEMENT I saw and evaluated the patient. I reviewed the resident's note and discussed the case with the resident. I agree with the resident's findings and plan as documented with exceptions below. SUBJECTIVE: Patient seen and examined. more awake, and oriented today, at bedside, pleasant, more interactive. OBJECTIVE: Vital Signs Period Temp Pulse Resp BP Sys/Bailey Pulse Ox Last 24 Hr 97.6 F-99.0 F 67-81 18-20 105-133/58-80 94 Intake & Output 10/31/19 11/01/19 11/02/19 11/03/19 23:59 23:59 23:59 23:59 Intake Total 200 450 400 Balance 200 450 400 General: sitting in bed, occasional coarse cough, no acute distress Neck: soft, supple Chest: CTAB, no rales or wheezing Abdomen:Soft, NT Extremities: no edema Musculoskeletal: no spinal tenderness, able to raise both legs upto 40-50 degrees today Neuro: AAOx3, more awake and interactive today, otherwise exam unchanged Home Medications Medication Instructions Recorded Aspirin Coated [Ecotrin -] 81 mg PO DAILY 07/28/12 Atorvastatin Ca [Lipitor] 40 mg PO HS 07/28/12 Hydrochlorothiazide [Hctz] 12.5 mg PO DAILY 07/28/12 Losartan Potassium 50 mg PO BID 07/28/12 metFORMIN XR [Glucophage Xr -] 500 mg PO BID 07/28/12 Carvedilol [Coreg -] 3.125 mg PO BID 10/29/19 Insulin (Levemir) [Levemir Vial] 14 unit SQ HS 10/29/19 Nateglinide [Starlix (Nf)] 120 mg PO TID 10/29/19 Active Medications Acetaminophen (Tylenol -) 650 mg PO Q6H PRN PRN Reason: PAIN LEVEL 6-10 Albuterol Sulfate (Ventolin 0.083% Nebulizer Soln -) 1 amp NEB Q6H PRN PRN Reason: SHORT OF BREATH/WHEEZING Albuterol/Ipratropium (Duoneb -) 1 amp NEB RQID [facility] Last Admin: 11/03/19 11:30 Dose: 1 amp Amoxicillin/Clavulanate Potassium (Augmentin - 875mg Tablet) 1 tab PO BID@0800, 1730 [facility] Last Admin: 11/03/19 09:52 Dose: 1 tab Aspirin (Ecotrin -) 81 mg PO DAILY [facility] Last Admin: 11/03/19 09:53 Dose: 81 mg Atorvastatin Calcium (Lipitor -) 40 mg PO HS [facility] Last Admin: 11/02/19 21:43 Dose: 40 mg Budesonide/Formoterol Fumarate (Symbicort 160/4.5mcg -) 2 puff IH BID [facility] Last Admin: 11/03/19 09:54 Dose: 2 puff Carvedilol (Coreg -) 3.125 mg PO BID [facility] Last Admin: 11/03/19 09:52 Dose: 3.125 mg Enoxaparin Sodium (Lovenox -) 40 mg SQ DAILY [facility] Last Admin: 11/03/19 09:53 Dose: 40 mg Hydrochlorothiazide (Hctz -) 12.5 mg PO DAILY [facility] Last Admin: 11/03/19 09:52 Dose: 12.5 mg Insulin Aspart (Novolog Vial Sliding Scale -) 1 vial SQ [facility]; Protocol Last Admin: 11/03/19 11:54 Dose: Not Given Insulin Detemir (Levemir Vial) 14 units SQ [facility] Last Admin: 11/02/19 21:43 Dose: 14 units Losartan Potassium (Cozaar -) 50 mg PO BID [facility] Last Admin: 11/03/19 09:53 Dose: 50 mg Non-Formulary Medication (Nateglinide) 120 mg PO TID [facility] Quetiapine Fumarate (Seroquel -) 12.5 mg PO Q24H [facility] Last Admin: 11/02/19 19:43 Dose: 12.5 mg Laboratory Results - last 24 hr 11/02/19 11/02/19 11/03/19 16:29 21:44 05:45 POC Glucometer 153 149 116 11/03/19 11:31 POC Glucometer 149 ASSESSMENT AND PLAN: 78 yom with PMhx of IDDM, HTN, CAD ([place] 1993, no stents), HLD, hx smoking (120 pack-year, quit 3mo ago), and b/l leg weakness (x1yr, unknown cause, walks with walker) admitted with leg weakness, altered speech, ?Amnesia and fever 102 -AMS, with intermittent waxing/waning mental status, suspect toxic metabolic encephalopathy from dehydration +/-URI/Bronchitis in the setting of progressive cognitive decline -Fever , suspect URI vs bronchitis vs maxillary sinusitis -NILAY, suspect dehydration related. -Lower Extremity Weakness, ?from spinal stenosis, r/o myopathy -IDDM -HTN -CAD s/p [place] 1993, no stents -HLD -Chronic LE weakness Plan: Mental status better, slept well. continue seroquel at 7 pm. fevers resolved, ID input noted. s/p 6 days of ceftriaxone, augmentin for additional 5 days. Nebs prn, symbicort, outpatient pulmonary follow up. CT/MRI L spine with severe canal stenosis. Neurosurgery input noted. Discussed with Dr. Blanton. patient with resolving fevers, ongoing delirium concerns. Plan for outpatient follow up for further surgical plans as needed once infection/mental status have improved. Aggressive PT and SNF for now. Waxing and waning mental status.MRI brain and repeat CT head neg for concerns. ASA/statin, neuro checks. Off IVF. Renal function stable. Continue losartan/coreg/HCTZ. Levemir/ISS Speech/swallow input noted. PO as tolerated. DVTPPX lovenox PT eval noted,will need SNF. Dispo dc to SNF in 24 hours if arrangements made. Discussed with patient and at bedside, all questions answered.
--- NOTE | 2019-11-03 13:28 | PN ---
Physical Exam: SUBJECTIVE: Patient seen and examined this AM. Slept well with Seroquel use. No new complaints. OBJECTIVE: Vital Signs Period Temp Pulse Resp BP Sys/Bailey Pulse Ox Last 24 Hr 97.6 F-99.0 F 67-81 18-20 105-133/58-80 94 GENERAL: A&Ox3, NAD HEAD: NCAT EYES: PERRL, EOMI ENT: MMM LUNGS: CTAB HEART: Regular rate and rhythm, S1, S2 without murmur ABDOMEN: Soft, nontender, nondistended, + bowel sounds, no guarding EXTREMITIES: no edema. Able to raise legs 45 degree's NEUROLOGICAL: Cranial nerves II through XII grossly intact. SKIN: Warm, dry Laboratory Results - last 24 hr 11/02/19 11/02/19 11/03/19 16:29 21:44 05:45 POC Glucometer 153 149 116 11/03/19 11:31 POC Glucometer 149 Microbiology 10/28/19 23:44 Blood - Peripheral Venous Blood Culture - Final NO GROWTH AFTER 5 DAYS INCUBATION 10/28/19 23:44 Blood - Peripheral Venous Blood Culture - Final NO GROWTH AFTER 5 DAYS INCUBATION 10/29/19 02:35 Urine - Urine - Catheterized Urine Culture - Final NO GROWTH OBTAINED Active Medications Acetaminophen (Tylenol -) 650 mg PO Q6H PRN PRN Reason: PAIN LEVEL 6-10 Albuterol Sulfate (Ventolin 0.083% Nebulizer Soln -) 1 amp NEB Q6H PRN PRN Reason: SHORT OF BREATH/WHEEZING Albuterol/Ipratropium (Duoneb -) 1 amp NEB RQID [facility] Last Admin: 11/03/19 11:30 Dose: 1 amp Amoxicillin/Clavulanate Potassium (Augmentin - 875mg Tablet) 1 tab PO BID@0800, 1730 [facility] Last Admin: 11/03/19 09:52 Dose: 1 tab Aspirin (Ecotrin -) 81 mg PO DAILY [facility] Last Admin: 11/03/19 09:53 Dose: 81 mg Atorvastatin Calcium (Lipitor -) 40 mg PO HS [facility] Last Admin: 11/02/19 21:43 Dose: 40 mg Budesonide/Formoterol Fumarate (Symbicort 160/4.5mcg -) 2 puff IH BID [facility] Last Admin: 11/03/19 09:54 Dose: 2 puff Carvedilol (Coreg -) 3.125 mg PO BID [facility] Last Admin: 11/03/19 09:52 Dose: 3.125 mg Enoxaparin Sodium (Lovenox -) 40 mg SQ DAILY [facility] Last Admin: 11/03/19 09:53 Dose: 40 mg Hydrochlorothiazide (Hctz -) 12.5 mg PO DAILY [facility] Last Admin: 11/03/19 09:52 Dose: 12.5 mg Insulin Aspart (Novolog Vial Sliding Scale -) 1 vial SQ [facility]; Protocol Last Admin: 11/03/19 11:54 Dose: Not Given Insulin Detemir (Levemir Vial) 14 units SQ HS [facility] Last Admin: 11/02/19 21:43 Dose: 14 units Losartan Potassium (Cozaar -) 50 mg PO BID [facility] Last Admin: 11/03/19 09:53 Dose: 50 mg Non-Formulary Medication (Nateglinide) 120 mg PO TID [facility] Quetiapine Fumarate (Seroquel -) 12.5 mg PO Q24H [facility] Last Admin: 11/02/19 19:43 Dose: 12.5 mg ASSESSMENT/PLAN: 78 y/o M with PMHx IDDM, HTN, CAD ([place] 1993, no stents), HLD, hx smoking (120 pack-year, quit 3mo ago), and b/l leg weakness (x1yr, unknown cause, walks with walker) admitted for b/l leg weakness, word finding difficulty, and amnesia, with associated urinary incontinence. #Worsening b/l leg weakness - Associated with amnesia, urine incontinence and word difficulty concerning for TIA/CVA - Brain MRI unrevealing of ischemic event; Central spinal canal stenosis noted on Thoracic and Lumbar spine CT - Carotid U/S without hemodynamically significant stenosis, Echo reveals EF 60% with trace to mild AR - myopathy workup noting elevated myoglobin - brain MRI without any acute infarct, L-spine MRI noting central spinal canal stenosis - ASA, statin - neurochecks Q2h, seizure/fall precautions - Neurology, neurosurgery consulted, appreciate recs - For outpatient EMG and further surgical intervention #Fever - Previously in the setting of waxing and waning mental status; Mental status improved - Unclear etiology with no clear source of infection identified, Remains AFebrile, cultures negative - S/P 6 days course of Ceftriaxone; Continue Augmentin for additional 5 days ( ABx course started on 10/29) - Continue Seroquel, Bronchodilators - ID consulted, Appreciate rec's #NILAY, Resolved - Renal U/S with does not reveal acute renal pathology - monitor urine output, Cr - Nephro consulted, Appreciate rec's #DM - BGM, ISS ACHS - Levemir 14u SubQ HS #HTN - Continue home medications #HLD - Statin #FEN - PO Hydration - Replete PRN - diabetic diet #PPx - DVT: Lovenox Dispo: monitor on medsurg, likely to be dc'ed tmrw to SNF Visit type - Emergency Visit Emergency Visit: Yes ED Registration Date: 10/28/19 Care time: The patient presented to the Emergency Department on the above date and was hospitalized for further evaluation of their emergent condition. - New Patient This patient is new to me today: Yes Date on this admission: 11/03/19 - Critical Care Critical Care patient: No - Discharge Referral Referred to [facility] Med [facility] No ATTENDING PHYSICIAN STATEMENT I saw and evaluated the patient. I reviewed the resident's note and discussed the case with the resident. I agree with the resident's findings and plan as documented. SUBJECTIVE: OBJECTIVE: ASSESSMENT AND PLAN:
[2019-11-03] MEDS: ATORVASTATIN CA 40 MG TABLET (FP) PO SCH (21:12)
[2019-11-03] MEDS: QUEtiapine FUMARATE 25 MG TABLET (FP) PO SCH (21:13)
[2019-11-03] MEDS: INSULIN (LEVEMIR) 100 UNITS/ML UNITS SQ SCH (21:14)
[2019-11-04] MEDS: INSULIN SLIDING SCALE (NOVOLOG) 1 VIAL SQ SCH ×4 (06:01→22:21)
[2019-11-04] MEDS: ALBUTEROL SO4 2.5/IPRATROPIUM 0.5 INH SOL 3 ML VIAL.NEB. NEB SCH ×4 (07:50→21:30)
[2019-11-04] MEDS: AMOX TR/POT CLAV 875MG/125MG TABLETS (FP) PO SCH ×2 (10:08→17:49)
[2019-11-04] MEDS: ASPIRIN COATED 81 MG TABLET.EC PO SCH (10:08)
[2019-11-04] MEDS: CARVEDILOL 3.125 MG TABLET (FP) PO SCH ×2 (10:09→22:18)
[2019-11-04] MEDS: HYDROCHLOROTHIAZIDE 12.5 MG CAPSULE (FP) PO SCH (10:09)
[2019-11-04] MEDS: ENOXAPARIN NA (PORCINE) 40 MG/0.4 ML DISP.SYRIN SQ SCH (10:10)
[2019-11-04] MEDS: LOSARTAN POTASSIUM 50 MG TABLET (FP) PO SCH ×2 (10:10→22:18)
[2019-11-04] MEDS: BUDESONIDE/FORMETEROL FUMARATE 160/4.5 mcg INHALER IH SCH ×2 (10:11→22:19)
--- NOTE | 2019-11-04 14:51 | PN ---
Progress Note, [employer] - Note Progress Note: Selected Entries 11/03/19 11/03/19 11/03/19 05:00 09:00 11:13 Breakfast 100% Lunch Supper Temperature 97.6 F 98.7 F 11/03/19 11/03/19 11/03/19 14:29 18:00 22:00 Breakfast Lunch 75% Supper 75% Temperature 98.1 F 97.5 F L 97.9 F 11/04/19 11/04/19 06:00 09:42 Breakfast 50% Lunch Supper Temperature 98.8 F Laboratory Tests 11/02/19 05:50 WBC 3.9 L On reg diet/thin liquids.
--- NOTE | 2019-11-04 15:05 | PN ---
Teaching Attending Note Name of Resident: Matt Diana ATTENDING PHYSICIAN STATEMENT I saw and evaluated the patient. I reviewed the resident's note and discussed the case with the resident. I agree with the resident's findings and plan as documented with exceptions below. SUBJECTIVE: Patient seen and examined. oriented to self, time, tangential when asked about the place, but able to respond appropriately to questions and follow commands. OBJECTIVE: Vital Signs Period Temp Pulse Resp BP Sys/Bailey Pulse Ox Last 24 Hr 97.5 F-98.8 F 65-75 18-18 127-155/62-76 94-94 Intake & Output 11/01/19 11/02/19 11/03/19 11/04/19 23:59 23:59 23:59 23:59 Intake Total 450 400 500 300 Balance 450 400 500 300 General: sitting in bed, pleasant, occasionally sarcastic, comfortable in bed Neck: soft, supple Chest: CTAB, no rales or wheezing Abdomen:Soft, NT Extremities: no edema Musculoskeletal: no spinal tenderness, able to raise both legs upto 25-30 degrees today Neuro: AAOx3, more awake and interactive today, otherwise exam unchanged Home Medications Medication Instructions Recorded Aspirin Coated [Ecotrin -] 81 mg PO DAILY 07/28/12 Atorvastatin Ca [Lipitor] 40 mg PO HS 07/28/12 Hydrochlorothiazide [Hctz] 12.5 mg PO DAILY 07/28/12 Losartan Potassium 50 mg PO BID 07/28/12 metFORMIN XR [Glucophage Xr -] 500 mg PO BID 07/28/12 Carvedilol [Coreg -] 3.125 mg PO BID 10/29/19 Insulin (Levemir) [Levemir Vial] 14 unit SQ HS 10/29/19 Nateglinide [Starlix (Nf)] 120 mg PO TID 10/29/19 Active Medications Acetaminophen (Tylenol -) 650 mg PO Q6H PRN PRN Reason: PAIN LEVEL 6-10 Albuterol Sulfate (Ventolin 0.083% Nebulizer Soln -) 1 amp NEB Q6H PRN PRN Reason: SHORT OF BREATH/WHEEZING Albuterol/Ipratropium (Duoneb -) 1 amp NEB RQID [facility] Last Admin: 11/04/19 12:48 Dose: Not Given Amoxicillin/Clavulanate Potassium (Augmentin - 875mg Tablet) 1 tab PO BID@0800, 1730 [facility] Last Admin: 11/04/19 10:08 Dose: 1 tab Aspirin (Ecotrin -) 81 mg PO DAILY [facility] Last Admin: 11/04/19 10:08 Dose: 81 mg Atorvastatin Calcium (Lipitor -) 40 mg PO HS [facility] Last Admin: 11/03/19 21:12 Dose: 40 mg Budesonide/Formoterol Fumarate (Symbicort 160/4.5mcg -) 2 puff IH BID [facility] Last Admin: 11/04/19 10:11 Dose: 2 puff Carvedilol (Coreg -) 3.125 mg PO BID [facility] Last Admin: 11/04/19 10:09 Dose: 3.125 mg Enoxaparin Sodium (Lovenox -) 40 mg SQ DAILY [facility] Last Admin: 11/04/19 10:10 Dose: 40 mg Hydrochlorothiazide (Hctz -) 12.5 mg PO DAILY [facility] Last Admin: 11/04/19 10:09 Dose: 12.5 mg Insulin Aspart (Novolog Vial Sliding Scale -) 1 vial SQ [facility]; Protocol Last Admin: 11/04/19 11:57 Dose: 2 units Insulin Detemir (Levemir Vial) 14 units SQ [facility] Last Admin: 11/03/19 21:14 Dose: 14 units Losartan Potassium (Cozaar -) 50 mg PO BID [facility] Last Admin: 11/04/19 10:10 Dose: 50 mg Non-Formulary Medication (Nateglinide) 120 mg PO TID [facility] Quetiapine Fumarate (Seroquel -) 12.5 mg PO Q24H [facility] Last Admin: 11/03/19 21:13 Dose: 12.5 mg Laboratory Results - last 24 hr 11/03/19 11/03/19 11/04/19 16:53 21:11 05:44 POC Glucometer 174 150 155 11/04/19 11:56 POC Glucometer 195 Microbiology 10/28/19 23:44 Blood - Peripheral Venous Blood Culture - Final NO GROWTH AFTER 5 DAYS INCUBATION 10/28/19 23:44 Blood - Peripheral Venous Blood Culture - Final NO GROWTH AFTER 5 DAYS INCUBATION 10/29/19 02:35 Urine - Urine - Catheterized Urine Culture - Final NO GROWTH OBTAINED ASSESSMENT AND PLAN: 78 yom with PMhx of IDDM, HTN, CAD ([place] 1993, no stents), HLD, hx smoking (120 pack-year, quit 3mo ago), and b/l leg weakness (x1yr, unknown cause, walks with walker) admitted with leg weakness, altered speech, ?Amnesia and fever 102 -AMS, with intermittent waxing/waning mental status, suspect toxic metabolic encephalopathy from dehydration +/-URI/Bronchitis in the setting of progressive cognitive decline -Fever , suspect URI vs bronchitis vs maxillary sinusitis -NILAY, suspect dehydration related. -Lower Extremity Weakness, ?from spinal stenosis, r/o myopathy -IDDM -HTN -CAD s/p [place] 1993, no stents -HLD -Chronic LE weakness Plan: Mental status overall better, intermittent confusion, though patient seems to respond to questions appropriately and occasionally sarcastic. MRI brain and CT brain x 2 neg for acute concerns or CVA. Fevers have resolved. Suspect has underlying progressive cognitive decline that was worsened given infection/dehydration, now with intermittent delirium episodes in the hospital. started on seroquel 12.5 mg. Overall better. Will get psychiatry input. Neurology/ID input noted. s/p 6 days of ceftriaxone, augmentin for additional 5 days. Nebs prn, symbicort, outpatient pulmonary follow up. CT/MRI L spine with severe canal stenosis. Neurosurgery input noted. Discussed with Dr. Blanton. Patient with resolving infection, ongoing delirium concerns. Plan for outpatient follow up for further surgical plans as needed once infection/mental status have improved. Aggressive PT and SNF for now. ASA/statin Off IVF. Renal function stable. Continue losartan/coreg/HCTZ. Levemir/ISS Speech/swallow input noted. PO as tolerated. DVTPPX lovenox PT eval noted,will need SNF. Dispo SNF bed available, plan for dc when mental status overall improved, pending psychiatry input.
--- NOTE | 2019-11-04 17:34 | PN ---
Progress Note, Physician History of Present Illness: Pt seen and examined at bedside. Chart reviewed. He denies shortness of breath. - Current Medication List Current Medications: Active Medications Acetaminophen (Tylenol -) 650 mg PO Q6H PRN PRN Reason: PAIN LEVEL 6-10 Albuterol Sulfate (Ventolin 0.083% Nebulizer Soln -) 1 amp NEB Q6H PRN PRN Reason: SHORT OF BREATH/WHEEZING Albuterol/Ipratropium (Duoneb -) 1 amp NEB RQID [facility] Last Admin: 11/04/19 16:40 Dose: Not Given Amoxicillin/Clavulanate Potassium (Augmentin - 875mg Tablet) 1 tab PO BID@0800, 1730 [facility] Last Admin: 11/04/19 10:08 Dose: 1 tab Aspirin (Ecotrin -) 81 mg PO DAILY [facility] Last Admin: 11/04/19 10:08 Dose: 81 mg Atorvastatin Calcium (Lipitor -) 40 mg PO HS [facility] Last Admin: 11/03/19 21:12 Dose: 40 mg Budesonide/Formoterol Fumarate (Symbicort 160/4.5mcg -) 2 puff IH BID [facility] Last Admin: 11/04/19 10:11 Dose: 2 puff Carvedilol (Coreg -) 3.125 mg PO BID [facility] Last Admin: 11/04/19 10:09 Dose: 3.125 mg Enoxaparin Sodium (Lovenox -) 40 mg SQ DAILY [facility] Last Admin: 11/04/19 10:10 Dose: 40 mg Hydrochlorothiazide (Hctz -) 12.5 mg PO DAILY [facility] Last Admin: 11/04/19 10:09 Dose: 12.5 mg Insulin Aspart (Novolog Vial Sliding Scale -) 1 vial SQ [facility]; Protocol Last Admin: 11/04/19 11:57 Dose: 2 units Insulin Detemir (Levemir Vial) 14 units SQ HS [facility] Last Admin: 11/03/19 21:14 Dose: 14 units Losartan Potassium (Cozaar -) 50 mg PO BID [facility] Last Admin: 11/04/19 10:10 Dose: 50 mg Non-Formulary Medication (Nateglinide) 120 mg PO TID [facility] Quetiapine Fumarate (Seroquel -) 12.5 mg PO Q24H [facility] Last Admin: 11/03/19 21:13 Dose: 12.5 mg - Objective Vital Signs: Vital Signs Temperature 98.0 F 11/04/19 15:10 Pulse Rate 41 L 11/04/19 15:10 Respiratory Rate 18 11/04/19 15:10 Blood Pressure 116/59 L 11/04/19 15:10 O2 Sat by Pulse Oximetry (%) 94 L 11/04/19 09:00 Constitutional: Yes: Calm Eyes: Yes: Conjunctiva Clear HENT: Yes: Atraumatic Cardiovascular: Yes: S1, S2 Respiratory: Yes: CTA Bilaterally Gastrointestinal: Yes: Soft Genitourinary: Yes: WNL Musculoskeletal: Yes: WNL Edema: No Neurological: Yes: Confusion Labs: CBC, BMP 11/02/19 05:50 11/02/19 05:50 INR, PTT INR 1.02 (0.83-1.09) 10/28/19 22:14 Problem List - Problems (1) NILAY (acute kidney injury) Code(s): N17.9 - ACUTE KIDNEY FAILURE, UNSPECIFIED (2) Bilateral leg weakness Code(s): R29.898 - OTH SYMPTOMS AND SIGNS INVOLVING THE MUSCULOSKELETAL SYSTEM (3) Word finding difficulty Code(s): R47.89 - OTHER SPEECH DISTURBANCES Assessment/Plan Current Medications Generic Name Dose Route Start Last Admin Trade Name Freq PRN Reason Stop Dose Admin Acetaminophen 650 mg 11/01/19 17:41 Tylenol - PO Q6H PRN PAIN LEVEL 6-10 Albuterol Sulfate 1 amp 11/01/19 17:41 Ventolin 0.083% Nebulizer Soln - NEB Q6H PRN SHORT OF BREATH/WHEEZING Albuterol/Ipratropium 1 amp 11/01/19 20:00 11/04/19 16:40 Duoneb - NEB Not Given RQID [facility] Amoxicillin/Clavulanate Potassium 1 tab 11/03/19 08:00 11/04/19 10:08 Augmentin - 875mg Tablet PO 1 tab BID@0800,1730 [facility] Administration Aspirin 81 mg 11/02/19 10:00 11/04/19 10:08 Ecotrin - PO 81 mg DAILY [facility] Administration Atorvastatin Calcium 40 mg 11/01/19 22:00 11/03/19 21:12 Lipitor - PO 40 mg HS [facility] Administration Budesonide/Formoterol Fumarate 2 puff 11/01/19 22:00 11/04/19 10:11 Symbicort 160/4.5mcg - IH 2 puff BID [facility] Administration Carvedilol 3.125 mg 11/01/19 22:00 11/04/19 10:09 Coreg - PO 3.125 mg BID [facility] Administration Enoxaparin Sodium 40 mg 11/02/19 10:00 11/04/19 10:10 Lovenox - SQ 40 mg DAILY [facility] Administration Hydrochlorothiazide 12.5 mg 11/02/19 10:00 11/04/19 10:09 Hctz - PO 12.5 mg DAILY [facility] Administration Insulin Aspart 1 vial 11/01/19 22:00 11/04/19 11:57 Novolog Vial Sliding Scale - SQ 2 units ACHS [facility] Administration Protocol Insulin Detemir 14 units 11/01/19 22:00 11/03/19 21:14 Levemir Vial SQ 14 units HS [facility] Administration Losartan Potassium 50 mg 11/01/19 22:00 11/04/19 10:10 Cozaar - PO 50 mg BID [facility] Administration Non-Formulary Medication 120 mg 11/01/19 22:00 Nateglinide PO TID [facility] Quetiapine Fumarate 12.5 mg 11/02/19 19:00 11/03/19 21:13 Seroquel - PO 12.5 mg Q24H [facility] Administration Impression 1. NILAY 2. change in mental status 3. weakness 4. dm 5. htn 6. CAD 7. AAA 8. hypokalemia Plan - no new labs - check cmp in am - likely in part pre-renal disease
--- NOTE | 2019-11-04 17:38 | PN ---
Physical Exam: SUBJECTIVE: Patient seen and examined at the bedside. Patient was confused and was oriented to himself and "holidays". Patient was able to follow simple commands. Denied any acute complaints of cp, sob, abd pain, n/v/c/d, fevers, chills, headaches, dizziness, lightheadedness. OBJECTIVE: Vital Signs Period Temp Pulse Resp BP Sys/Bailey Pulse Ox Last 24 Hr 97.5 F-98.8 F 41-84 18-18 116-155/59-76 94-94 GENERAL: The patient is awake, alert, and oriented to self and "holidays", in no acute distress. HEAD: Normal with no signs of trauma. EYES: PERRL, extraocular movements intact, sclera anicteric, conjunctiva clear. ENT: Oropharynx clear without exudates, moist mucous membranes. LUNGS: Breath sounds equal, with some coarse breath sounds throughout. No auscultated wheezes. HEART: Regular rate and rhythm, S1, S2 without murmur, rub. ABDOMEN: Soft, nontender, nondistended, normoactive bowel sounds, no guarding, no rebound, no masses. EXTREMITIES: 2+ pulses, warm, well-perfused, no edema. NEUROLOGICAL: Cranial nerves II through XII grossly intact. 5/5 strength bilaterally in the upper extremities. 4/5 muscle strength bilaterally in the LE proximally. Sensation is intact to gross touch throughout. PSYCH: Normal mood, normal affect. SKIN: Warm, dry, normal turgor, no rashes or lesions noted. Laboratory Results - last 24 hr 11/03/19 11/04/19 11/04/19 21:11 05:44 11:56 POC Glucometer 150 155 195 11/04/19 17:26 POC Glucometer 148 Active Medications Generic Name Dose Route Start Last Admin Trade Name Freq PRN Reason Stop Dose Admin Acetaminophen 650 mg 11/01/19 17:41 Tylenol - PO Q6H PRN PAIN LEVEL 6-10 Albuterol Sulfate 1 amp 11/01/19 17:41 Ventolin 0.083% Nebulizer Soln - NEB Q6H PRN SHORT OF BREATH/WHEEZING Albuterol/Ipratropium 1 amp 11/01/19 20:00 11/04/19 16:40 Duoneb - NEB Not Given RQID [facility] Amoxicillin/Clavulanate Potassium 1 tab 12/29/19 08:00 11/04/19 10:08 Augmentin - 875mg Tablet PO 1 tab BID@0800,1730 [facility] Administration Aspirin 81 mg 11/02/19 10:00 11/04/19 10:08 Ecotrin - PO 81 mg DAILY [facility] Administration Atorvastatin Calcium 40 mg 11/01/19 22:00 11/03/19 21:12 Lipitor - PO 40 mg HS [facility] Administration Budesonide/Formoterol Fumarate 2 puff 11/01/19 22:00 11/04/19 10:11 Symbicort 160/4.5mcg - IH 2 puff BID [facility] Administration Carvedilol 3.125 mg 11/01/19 22:00 11/04/19 10:09 Coreg - PO 3.125 mg BID [facility] Administration Enoxaparin Sodium 40 mg 11/02/19 10:00 11/04/19 10:10 Lovenox - SQ 40 mg DAILY [facility] Administration Hydrochlorothiazide 12.5 mg 11/02/19 10:00 11/04/19 10:09 Hctz - PO 12.5 mg DAILY [facility] Administration Insulin Aspart 1 vial 11/01/19 22:00 11/04/19 11:57 Novolog Vial Sliding Scale - SQ 2 units ACHS [facility] Administration Protocol Insulin Detemir 14 units 11/01/19 22:00 11/03/19 21:14 Levemir Vial SQ 14 units HS [facility] Administration Losartan Potassium 50 mg 11/01/19 22:00 11/04/19 10:10 Cozaar - PO 50 mg BID [facility] Administration Non-Formulary Medication 120 mg 11/01/19 22:00 Nateglinide PO TID [facility] Quetiapine Fumarate 12.5 mg 11/02/19 19:00 11/03/19 21:13 Seroquel - PO 12.5 mg Q24H [facility] Administration ASSESSMENT/PLAN: Cliff Temple is a 78 year old male with a past medical history of IDDM, HTN, CAD ([place] 1993, no stents), HLD, hx smoking (120 pack-year, quit 3mo ago), and b/l leg weakness (x1yr, unknown cause, walks with walker) admitted for b/l leg weakness, word finding difficulty, and amnesia, with associated urinary incontinence. Worsening b/l leg weakness - Associated with amnesia, urine incontinence and word difficulty concerning for TIA/CVA - Brain MRI unrevealing of ischemic event; Central spinal canal stenosis noted on Thoracic and Lumbar spine CT - Carotid U/S without hemodynamically significant stenosis, Echo reveals EF 60% with trace to mild AR - myopathy workup noting elevated myoglobin - brain MRI without any acute infarct, L-spine MRI noting central spinal canal stenosis - ASA, statin - neurochecks Q2h, seizure/fall precautions - Neurology, neurosurgery consulted, appreciate recs, no acute intervention, will need outpatient workup and intervention when more oriented - For outpatient EMG and further surgical intervention - continue PT AMS - no clear infectious, metabolic reason for AMS - likely underlying cognitive deficit - likely delirium in the setting of hospital stay - Seroquel at night for sleep - conservative measurements for reorientation - Psychiatry consulted Fever - Previously in the setting of waxing and waning mental status - Unclear etiology with no clear source of infection identified, Remains Afebrile, cultures negative - S/P 6 days course of Ceftriaxone; Continue Augmentin for additional 4 days ( ABx course started on 10/29) - Continue Seroquel, Bronchodilators - ID consulted, Appreciate rec's NILAY - improved - Renal U/S with does not reveal acute renal pathology - monitor urine output, Cr - Nephro consulted, Appreciate rec's DM - BGM, ISS ACHS - Levemir 14u SubQ HS HTN - Continue home medications HLD - continue home atorvastatin FEN - no standing fluids, encourage PO intake - continue to monitor electrolytes and replete as necessary - diabetic diet DVT PPx - Lovenox 40 units subq daily Dispo - monitor on medsurg - for d/c to SNF upon stabilzation of mental status Visit type - Emergency Visit Emergency Visit: Yes ED Registration Date: 10/28/19 Care time: The patient presented to the Emergency Department on the above date and was hospitalized for further evaluation of their emergent condition. - New Patient This patient is new to me today: No - Critical Care Critical Care patient: No
--- NOTE | 2019-11-04 18:53 | CON.PSY ---
Psychiatry Consult Chief Complaint: 78 Priti old male admitted [facility], has DEmentia , became delirious with infection. staff report that he has been sleeping poorly. No reports of any physical abuse.but confused.. Symptoms: reports: Sleep Disturbance, Memory Impairment - Previous Psychiatric Treatment Outpatient: None Inpatient: None - Previous Substance Abuse Treatment Outpatient: None Inpatient: None - Current Medications Current Medications: Active Medications Acetaminophen (Tylenol -) 650 mg PO Q6H PRN PRN Reason: PAIN LEVEL 6-10 Albuterol Sulfate (Ventolin 0.083% Nebulizer Soln -) 1 amp NEB Q6H PRN PRN Reason: SHORT OF BREATH/WHEEZING Albuterol/Ipratropium (Duoneb -) 1 amp NEB RQID [facility] Last Admin: 11/04/19 16:40 Dose: Not Given Amoxicillin/Clavulanate Potassium (Augmentin - 875mg Tablet) 1 tab PO BID@0800, 1730 [facility] Last Admin: 11/04/19 17:49 Dose: 1 tab Aspirin (Ecotrin -) 81 mg PO DAILY [facility] Last Admin: 11/04/19 10:08 Dose: 81 mg Atorvastatin Calcium (Lipitor -) 40 mg PO HS [facility] Last Admin: 11/03/19 21:12 Dose: 40 mg Budesonide/Formoterol Fumarate (Symbicort 160/4.5mcg -) 2 puff IH BID [facility] Last Admin: 11/04/19 10:11 Dose: 2 puff Carvedilol (Coreg -) 3.125 mg PO BID [facility] Last Admin: 11/04/19 10:09 Dose: 3.125 mg Enoxaparin Sodium (Lovenox -) 40 mg SQ DAILY [facility] Last Admin: 11/04/19 10:10 Dose: 40 mg Hydrochlorothiazide (Hctz -) 12.5 mg PO DAILY [facility] Last Admin: 11/04/19 10:09 Dose: 12.5 mg Insulin Aspart (Novolog Vial Sliding Scale -) 1 vial SQ [facility]; Protocol Last Admin: 11/04/19 17:49 Dose: Not Given Insulin Detemir (Levemir Vial) 14 units SQ [facility] Last Admin: 11/03/19 21:14 Dose: 14 units Losartan Potassium (Cozaar -) 50 mg PO BID [facility] Last Admin: 11/04/19 10:10 Dose: 50 mg Non-Formulary Medication (Nateglinide) 120 mg PO TID [facility] Quetiapine Fumarate (Seroquel -) 12.5 mg PO Q24H [facility] Last Admin: 11/03/19 21:13 Dose: 12.5 mg - Allergies Allergies: Allergies Allergy/AdvReac Type Severity Reaction Status Date / Time No Known Allergies Allergy Verified 10/28/19 22:27 - Current Living Status Usual Living Arrangement: With Spouse - Current Mental Status Evaluation Appearance: Disheveled Attitude: Guarded - Affect Affect: Constrictive Appropriateness: Not Appropriate - Mood Mood: Euthymic - Speech/Language Expressive: Delayed - Psychomotor Activity Psychomotor Activity: Normal - Thought Process Thought Process: Circumstantial - Thought Content Hallucinations: Absent Delusions: Absent - Self Perception Self Perception: No Impairment - Cognition Attention: Diminished Orientation: Time Memory, Short Term: 2/3 Memory, Remote with Promptin/3 - Concentration Serial Sevens Intact: No Simple Calculations Intact: No - Abstraction Proverb Interpretation: Impaired Judgement: Minimally Impaired - Insight Insight: Intact - Impulse Control Impulse Control: Minimally Impaired - Suicidal Ideation Suicidal Ideation: No - Homicidal Ideation Homicidal Ideation: No Assessment/Plan 1) d/c seroquel bid . 2) Seroquel 25mg po hs for sleep.
[2019-11-04] MEDS ORDERED: QUEtiapine FUMARATE 25 MG TABLET (FP) PO SCH (22:00)
[2019-11-04] MEDS: INSULIN (LEVEMIR) 100 UNITS/ML UNITS SQ SCH (22:19)
[2019-11-04] MEDS: ATORVASTATIN CA 40 MG TABLET (FP) PO SCH (22:19)
[2019-11-05] MEDS: INSULIN SLIDING SCALE (NOVOLOG) 1 VIAL SQ SCH ×3 (06:22→16:54)
[2019-11-05 07:43] LABS: BASO % 0.3 % (0-2.0); EOS % 0.6 % (0-4.5); HEMATOCRIT 35.9 % (35.4-49); HEMOGLOBIN 12.2 GM/dL (11.7-16.9); LYMPH % 15.1 % (8-40); MCH 31.6 pg (25.7-33.7); MEAN PLT VOLUME 8.2 fl (7.5-11.1); MONO % 17.6 % (3.8-10.2); NEUT % 66.4 % (42.8-82.8); PLATELET COUNT 233 K/MM3 (134-434); RBC 3.86 M/mm3 (4.00-5.60); RDW 13.6 % (11.9-15.9); WHITE BLOOD COUNT 5.5 K/mm3 (4.0-10.0)
[2019-11-05] MEDS: ALBUTEROL SO4 2.5/IPRATROPIUM 0.5 INH SOL 3 ML VIAL.NEB. NEB SCH ×3 (07:57→15:23)
[2019-11-05] MEDS: AMOX TR/POT CLAV 875MG/125MG TABLETS (FP) PO SCH ×2 (08:29→16:54)
[2019-11-05 08:31] LABS: ALBUMIN 2.7 g/dl (3.4-5.0); BILIRUBIN,TOTAL 0.7 mg/dL (0.2-1); BLOOD UREA NITROGEN 31.3 mg/dL (7-18); CREATININE 1.1 mg/dL (0.55-1.3); MAGNESIUM 2.4 mg/dL (1.8-2.4); POTASSIUM 3.5 mmol/L (3.5-5.1); TOT PROT 6.2 g/dl (6.4-8.2)
[2019-11-05] MEDS ORDERED: PT OWN MED DRAWER 7, Y5N ONE (10:13)
[2019-11-05] MEDS: LOSARTAN POTASSIUM 50 MG TABLET (FP) PO SCH (10:15)
[2019-11-05] MEDS: HYDROCHLOROTHIAZIDE 12.5 MG CAPSULE (FP) PO SCH (10:15)
[2019-11-05] MEDS: ENOXAPARIN NA (PORCINE) 40 MG/0.4 ML DISP.SYRIN SQ SCH (10:16)
[2019-11-05] MEDS: ASPIRIN COATED 81 MG TABLET.EC PO SCH (10:16)
[2019-11-05] MEDS: CARVEDILOL 3.125 MG TABLET (FP) PO SCH (10:16)
[2019-11-05] MEDS: BUDESONIDE/FORMETEROL FUMARATE 160/4.5 mcg INHALER IH SCH (10:17)
[2019-11-05 10:59] VITALS: PULSE 81
--- NOTE | 2019-11-05 11:45 | PN ---
Teaching Attending Note Name of Resident: Matt Diana ATTENDING PHYSICIAN STATEMENT I saw and evaluated the patient. I reviewed the resident's note and discussed the case with the resident. I agree with the resident's findings and plan as documented. SUBJECTIVE: Patient less confused. He has no complaints. OBJECTIVE: Vital Signs Period Temp Pulse Resp BP Sys/Bailey Pulse Ox Last 24 Hr 98 F-98.9 F 41-97 18-18 116-148/53-71 94 HEART: S1S2, RRR LUNGS: Clear ABDOMEN: Soft, non-tender, non-distended, normal BS EXTREMITIES: No edema Laboratory Results - last 24 hr 11/04/19 11/04/19 11/04/19 11:56 17:26 22:11 WBC RBC Hgb Hct MCV MCH MCHC RDW Plt Count MPV Absolute Neuts (auto) Neutrophils % Lymphocytes % Monocytes % Eosinophils % Basophils % Nucleated RBC % Sodium Potassium Chloride Carbon Dioxide Anion Gap BUN Creatinine Est GFR (CKD-EPI)AfAm Est GFR (CKD-EPI)NonAf POC Glucometer 195 148 149 Random Glucose Calcium Magnesium Total Bilirubin AST ALT Alkaline Phosphatase Total Protein Albumin 11/05/19 11/05/19 11/05/19 06:21 07:00 07:00 WBC 5.5 RBC 3.86 L Hgb 12.2 Hct 35.9 MCV 93.0 MCH 31.6 MCHC 34.0 RDW 13.6 Plt Count 233 D MPV 8.2 Absolute Neuts (auto) 3.7 Neutrophils % 66.4 Lymphocytes % 15.1 D Monocytes % 17.6 H Eosinophils % 0.6 D Basophils % 0.3 Nucleated RBC % 0 Sodium 141 Potassium 3.5 Chloride 103 Carbon Dioxide 30 Anion Gap 8 BUN 31.3 H Creatinine 1.1 Est GFR (CKD-EPI)AfAm 74.65 Est GFR (CKD-EPI)NonAf 64.41 POC Glucometer 133 Random Glucose 141 H Calcium 9.0 Magnesium 2.4 Total Bilirubin 0.7 AST 42 H ALT 30 Alkaline Phosphatase 73 Total Protein 6.2 L Albumin 2.7 L Current Medications Generic Name Dose Route Start Last Admin Trade Name Freq PRN Reason Stop Dose Admin Acetaminophen 650 mg 11/01/19 17:41 Tylenol - PO Q6H PRN PAIN LEVEL 6-10 Albuterol Sulfate 1 amp 11/01/19 17:41 Ventolin 0.083% Nebulizer Soln - NEB Q6H PRN SHORT OF BREATH/WHEEZING Albuterol/Ipratropium 1 amp 11/01/19 20:00 11/05/19 11:42 Duoneb - NEB 1 amp RQID [facility]NC[facility]Z Administration Amoxicillin/Clavulanate Potassium 1 tab 11/03/19 08:00 11/05/19 08:29 Augmentin - 875mg Tablet PO 1 tab BID@0800,1730 [facility] Administration Aspirin 81 mg 11/02/19 10:00 11/05/19 10:16 Ecotrin - PO 81 mg DAILY [facility] Administration Atorvastatin Calcium 40 mg 11/01/19 22:00 11/04/19 22:19 Lipitor - PO 40 mg HS [facility] Administration Budesonide/Formoterol Fumarate 2 puff 11/01/19 22:00 11/05/19 10:17 Symbicort 160/4.5mcg - IH 2 puff BID [facility]NC[facility] Administration Carvedilol 3.125 mg 11/01/19 22:00 11/05/19 10:16 Coreg - PO 3.125 mg BID [facility] Administration Enoxaparin Sodium 40 mg 11/02/19 10:00 11/05/19 10:16 Lovenox - SQ 40 mg DAILY [facility] Administration Hydrochlorothiazide 12.5 mg 11/02/19 10:00 11/05/19 10:15 Hctz - PO 12.5 mg DAILY [facility] Administration Insulin Aspart 1 vial 11/01/19 22:00 11/05/19 06:22 Novolog Vial Sliding Scale - SQ Not Given [facility] Protocol Insulin Detemir 14 units 11/01/19 22:00 11/04/19 22:19 Levemir Vial SQ 14 units HS [facility] Administration Losartan Potassium 50 mg 11/01/19 22:00 11/05/19 10:15 Cozaar - PO 50 mg BID [facility] Administration Quetiapine Fumarate 25 mg 11/04/19 22:00 11/04/19 21:19 Seroquel - PO 25 mg HS [facility] Administration ASSESSMENT AND PLAN: This is a 78 year old man with a history of HTN, hyperlipidemia, CAD, MT, type 2 DM, bilateral leg weakness, former smoker who presented to the ED with worsening leg weakness, difficulty finding words, amnesia, urinary incontinence. 1. Lumbar spinal stenosis with difficulty ambulating - Plan for PT, EMG, and eventual decompression 2. Probable delirium secondary to hospitalization - Continue Seroquel at hs 3. Fever secondary to URI/acute bronchitis - Afebrile - Ceftriaxone changed to Augmentin 3. Acute kidney injury - Resolved 4. CAD, history of MT - Continue aspirin, Coreg, Lipitor 5. HTN - Continue Cozaar, Coreg, HCTZ 6. Hyperlipidemia - Continue Lipitor 7. Type 2 DM - Continue Levemir, Novolog sliding scale
--- NOTE | 2019-11-05 11:46 | DS ---
Physical Exam: SUBJECTIVE: Patient seen and examined at the bedside. He is more oriented today and follows commands well. Denies any cp, sob, abd pain, n/v/c/d, fever, chills , headaches, dizziness, lightheadedness, numbness, tingling. OBJECTIVE: Vital Signs Period Temp Pulse Resp BP Sys/Bailey Pulse Ox Last 24 Hr 98 F-98.9 F 41-97 18-18 116-148/53-71 94 PHYSICAL EXAM GENERAL: The patient is awake, alert, and oriented to self and "hospital", in no acute distress. HEAD: Normal with no signs of trauma. EYES: PERRL, extraocular movements intact, sclera anicteric, conjunctiva clear. ENT: Oropharynx clear without exudates, moist mucous membranes. LUNGS: Breath sounds equal, with some coarse breath sounds throughout. No auscultated wheezes. HEART: Regular rate and rhythm, S1, S2 without murmur, rub. ABDOMEN: Soft, nontender, nondistended, normoactive bowel sounds, no guarding, no rebound, no masses. EXTREMITIES: 2+ pulses, warm, well-perfused, no edema. NEUROLOGICAL: Cranial nerves II through XII grossly intact. 5/5 strength bilaterally in the upper extremities. 4/5 muscle strength bilaterally in the LE proximally. PSYCH: Normal mood, normal affect. SKIN: Warm, dry, normal turgor, no rashes or lesions noted. LABS Laboratory Results - last 24 hr 11/04/19 11/04/19 11/04/19 11:56 17:26 22:11 WBC RBC Hgb Hct MCV MCH MCHC RDW Plt Count MPV Absolute Neuts (auto) Neutrophils % Lymphocytes % Monocytes % Eosinophils % Basophils % Nucleated RBC % Sodium Potassium Chloride Carbon Dioxide Anion Gap BUN Creatinine Est GFR (CKD-EPI)AfAm Est GFR (CKD-EPI)NonAf POC Glucometer 195 148 149 Random Glucose Calcium Magnesium Total Bilirubin AST ALT Alkaline Phosphatase Total Protein Albumin 11/05/19 11/05/19 11/05/19 06:21 07:00 07:00 WBC 5.5 RBC 3.86 L Hgb 12.2 Hct 35.9 MCV 93.0 MCH 31.6 MCHC 34.0 RDW 13.6 Plt Count 233 D MPV 8.2 Absolute Neuts (auto) 3.7 Neutrophils % 66.4 Lymphocytes % 15.1 D Monocytes % 17.6 H Eosinophils % 0.6 D Basophils % 0.3 Nucleated RBC % 0 Sodium 141 Potassium 3.5 Chloride 103 Carbon Dioxide 30 Anion Gap 8 BUN 31.3 H Creatinine 1.1 Est GFR (CKD-EPI)AfAm 74.65 Est GFR (CKD-EPI)NonAf 64.41 POC Glucometer 133 Random Glucose 141 H Calcium 9.0 Magnesium 2.4 Total Bilirubin 0.7 AST 42 H ALT 30 Alkaline Phosphatase 73 Total Protein 6.2 L Albumin 2.7 L HOSPITAL COURSE: Cliff Temple is a 78 year old male with a past medical history of IDDM, HTN, CAD ([place] 1993, no stents), HLD, hx smoking (120 pack-year, quit 3mo ago), and b/l leg weakness (x1yr, unknown cause, walks with walker) admitted for b/l leg weakness, word finding difficulty, and amnesia, with associated urinary incontinence. Patient had CT of the lumbar spine showing chronic advanced intervertebral osteochondrosis noted from the T6-7 down through the T11-12 levels, and at the L2-3 through the L4-5 levels, prominent disc osteophyte complexes at T6-7, T7-8 and T8-9, which are producing moderate central spinal canal stenoses, and posterior displacement of the thecal sac, but without clear evidence of spinal cord compression and smaller disc osteophyte complexes are noted at T11-12 and L3-4 producing mild central spinal canal stenoses. Subsequent lumbar spine MRI noted disc space narrowing in the L2-L5 region and spinal canal stenosis. Patient was seen by neurosurgery who noted that the patient may benefit from neurosurgical intervention but not in his acute state and would be seen as an outpatient. He is recommended for physical therapy. Patient was seen by neurology who recommended that the patient have EMG studies outpatient and to follow up with neurology outpatient. Had elevated myoglobin but normal aldolase, and ESR. While admitted patient had waxing and waning altered mental status. Infectious and metabolic workup was negative. Had CT and Brain MRI which showed chronic brain disease with no acute pathology. Patient had poor sleeping while in the hospital and started on Seroquel 25mg at night for sleep. Was seen by psychiatry and recommended to continue Seroquel and to follow up outpatient. Patient presented with fever with no clear source, was started on ceftriaxone which was transitioned to Augmentin and patient will complete course of antibiotics in his senior living facility. 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 Was found to have mild chronic lung disease and long smoking history and was advised to follow up with pulmonology. Patient to continue taking Seroquel for sleep and to complete Augmentin on November 07. Is to follow up with his PCP, neurology, neurosurgery, psychiatry, pulmonology, and vascular surgery. Family was advised of the plan, was in agreement, and reiterated it. Patient was discharged in stable medical condition. Date of Admission:10/28/19 Date of Discharge: 11/05/19 Minutes to complete discharge: 35 Discharge Summary Problems reviewed: Yes Reason For Visit: WORD FINDING DIFFICULTY, WEAKNESS OF BOTH LOWER Current Active Problems Bilateral leg weakness (Chronic) Condition: Stable - Instructions Diet, Activity, Other Instructions: You were admitted to the hospital for leg weakness, word finding difficulty, and amnesia. You had a CT scan of your spine which showed chronic changes and narrowing of your space where your spinal cord lies but no compression of the spinal cord. You had an MRI of your lumbar spine which showed narrowing of your spinal cord canal as well. You were seen by a neurosurgeon (brain and spinal cord surgeon) who recommended that you may benefit from back surgery but should follow up at a later time in the outpatient clinic and recommended that you have physical therapy. You had a brain MRI which did not show any new findings, but did show some chronic changes in your brain. You are advised to follow up with a neurologist (brain doctor) for these findings. You are also advised to have EMG (nerve testing) when you leave the hospital in the outpatient clinic. You had a fever when you came to the hospital and were started on antibiotics which you will complete in the facility you are going to for rehab. You had an enlarged portion of your aorta. You should follow up with a vascular surgeon. You had a CT scan of your chest which showed mild chronic lung disease. You also have a long smoking history and are advised to follow up with a bartender helper (lung doctor). MEDICATIONS START taking Augmentin 875mg twice a day. Your last dose of this mediation will be on November 07. START taking Seroquel 25mg at night for sleep. Continue taking all of your other home medications as prescribed. REFERRALS Please follow up with your primary care doctor, Dr. Alejandro Segal, within 1 week. Please follow up with the neurologist, Dr. Ester Her, within 1 week. Please follow up with the neurosurgeon, Dr. Bennie Blanton, within 2 weeks. Please follow up with the psychiatrist, Dr. Ramy Jean Baptiste, within 1 week. Please follow up with the vascular surgeon, Dr. Dann Raygoza, within 2 weeks. Please follow up with the bartender helper, Dr. Mariusz Hernandez, within 2 weeks. SPECIAL INSTRUCTIONS Please make sure to work with physical therapy at your facility. If you have any symptoms of worsening confusion, fevers, chest pain, shortness of breath, complete inability to walk, weakness one side, complete numbness, or any other general feelings of unwellness, please call 911 or go your nearest emergency room. Referrals: Ramy Jean Baptiste MD [Staff Physician] - 1 Week Bennie Blanton MD, FA[facility] [Staff Physician] - 1 Week Alejandro Segal MD [Primary Care Provider] - 1 Week Dann Raygoza DO [Staff Physician] - 2 Weeks Ester Her MD [Staff Physician] - 1 Week Mariusz Hernandez MD, MD [Staff Physician] - 2 Weeks Disposition: [facility] - Home Medications Comprehensive Discharge Medication List: Ambulatory Orders Aspirin Coated [Ecotrin -] 81 mg PO DAILY 07/28/12 Atorvastatin Ca [Lipitor] 40 mg PO HS 07/28/12 Hydrochlorothiazide [Hctz] 12.5 mg PO DAILY 07/28/12 Losartan Potassium 50 mg PO BID 07/28/12 metFORMIN XR [Glucophage Xr -] 500 mg PO BID 07/28/12 Carvedilol [Coreg -] 3.125 mg PO BID 10/29/19 Insulin (Levemir) [Levemir Vial] 14 unit SQ HS 10/29/19 Nateglinide [Starlix (Nf) -] 120 mg PO TID 10/29/19 Amox-Tr/K Cl [Augmentin 875-125mg Tablet -] 1 tab PO BID@0800,1730 #0 tablet Quetiapine Fumarate [Seroquel -] 25 mg PO HS tablet 11/05/19 Problem List - Problems (1) Bilateral leg weakness Code(s): R29.898 - [facility] SYMPTOMS AND SIGNS INVOLVING THE MUSCULOSKELETAL SYSTEM This patient is new to me today: No Emergency Visit: Yes ED Registration Date: 10/28/19 Care time: The patient presented to the Emergency Department on the above date and was hospitalized for further evaluation of their emergent condition. Critical Care patient: No - Discharge Referral Referred to [facility] No
--- NOTE | 2019-11-05 14:00 | PN ---
Progress Note (short form) - Note Progress Note: Patient far more lucid today. Discussed his Lumbar degenerative disease and potential role for decompression and stabilization in detail. All questions answered. Patient verbalizes an understanding that he would need to be medically optimized prior to proceeding with such a procedure. I offered to discuss further with his spouse and family. No Neurosurgical contraindication to discharge
[2019-11-05 15:05] VITALS: BP 115/57; TEMP 98.4
--- NOTE | 2019-11-05 17:34 | PN ---
Progress Note, Physician History of Present Illness: Pt seen and examined at bedside. He remains confused. - Objective Vital Signs: Vital Signs Temperature 98.4 F 11/05/19 15:03 Pulse Rate 81 11/05/19 15:03 Respiratory Rate 18 11/05/19 15:03 Blood Pressure 115/57 L 11/05/19 15:03 O2 Sat by Pulse Oximetry (%) 91 L 11/05/19 09:00 Constitutional: Yes: Calm Eyes: Yes: Conjunctiva Clear HENT: Yes: Atraumatic Neck: Yes: Supple Cardiovascular: Yes: S1, S2 Respiratory: Yes: CTA Bilaterally Gastrointestinal: Yes: Soft Genitourinary: Yes: WNL Musculoskeletal: Yes: WNL Edema: No Neurological: Yes: Confusion Labs: CBC, BMP 11/05/19 07:00 11/05/19 07:00 INR, PTT INR 1.02 (0.83-1.09) 10/28/19 22:14 Problem List - Problems (1) NILAY (acute kidney injury) Code(s): N17.9 - ACUTE KIDNEY FAILURE, UNSPECIFIED (2) Bilateral leg weakness Code(s): R29.898 - OTH SYMPTOMS AND SIGNS INVOLVING THE MUSCULOSKELETAL SYSTEM (3) Word finding difficulty Code(s): R47.89 - OTHER SPEECH DISTURBANCES Assessment/Plan Impression 1. NILAY 2. change in mental status 3. weakness 4. dm 5. htn 6. CAD 7. AAA 8. hypokalemia Plan - renal function stable - monitor lytes as outp - monitor volume status on diuretics - likely in part pre-renal disease
== END 2019-11-05 16:00 | DRG 551 ==
LOC: JER 21:06 → JERBED 22:18 → J4W 10-29 17:55 → J7W 11-01 17:29
PROVIDERS: ADMIT Internal Medicine; ATTEND Internal Medicine
DX: M48.061 Spinal stenosis, lumbar region without neurogenic claudication (principal); G93.41 Metabolic encephalopathy; N17.9 Acute kidney failure, unspecified; F05 Delirium due to known physiological condition; M51.36 Other intervertebral disc degeneration, lumbar region; I25.10 Atherosclerotic heart disease of native coronary artery without angina pectoris; E78.5 Hyperlipidemia, unspecified; I45.10 Unspecified right bundle-branch block; I44.4 Left anterior fascicular block; I10 Essential (primary) hypertension; E11.9 Type 2 diabetes mellitus without complications; I25.2 Old myocardial infarction; R41.82 Altered mental status, unspecified; E11.65 Type 2 diabetes mellitus with hyperglycemia; I71.4 Abdominal aortic aneurysm, without rupture; R50.9 Fever, unspecified; R47.89 Other speech disturbances; R29.898 Other symptoms and signs involving the musculoskeletal system; R32 Unspecified urinary incontinence; R41.3 Other amnesia; J06.9 Acute upper respiratory infection, unspecified; E86.0 Dehydration; E87.6 Hypokalemia; D72.819 Decreased white blood cell count, unspecified; J20.9 Acute bronchitis, unspecified
CPT/HCPCS: 36415; 36600; 70450-TC; 70551-TC; 71045-TC-FY; 71250-TC; 72128-TC; 72131-TC; 72148-TC; 76775-TC; 80048; 80053; 80061; 81003; 82085; 82465; 82550; 82553; 82607; 82803; 82962; 83036; 83090; 83605; 83718; 83721; 83735; 83874; 84100; 84155; 84165; 84443; 84478; 84484; 85025; 85027; 85610; 85651; 85730; 86140; 86593; 86850; 86900; 86901; 87040; 87086; 87804; 93005; 93010; 93306-TC; 93880-TC; 94640; 97116-GP; 97162-GP; 99285-25; J7030